=== PATIENT | male | born 1950 | race Caucasian/White ===

== ENCOUNTER → 2016-10-02 | Outpatient (CLI) | payer MEDICARE ==
[~2016-10-02] MED LIST: ALLP100T PO; ATEN100T88 PO; HYDR-3454 PO; TADA5TAB2 PO
== END ==
LOC: CARD 14:47
PROVIDERS: ATTEND Family Medicine
DX: R01.1 Cardiac murmur, unspecified (principal)

== ENCOUNTER → 2016-10-18 | Outpatient (CLI) | payer MEDICARE ==
[~2016-10-18] MED LIST changes: +RT-ALBUTEROL SULF 2.5 MG/3 ML PRE-MIX VIAL IH ONE
== END ==
LOC: RT 08:16
PROVIDERS: ATTEND Family Medicine
DX: I27.2 Other secondary pulmonary hypertension (principal)
CPT/HCPCS: 94060; 94640; 94726; 94729

== ENCOUNTER → 2017-04-03 | Day surgery (SDC) | payer MEDICARE ==
[~2017-04-03] VITALS: Ht 182.9 cm; Wt 90.7 kg
[~2017-04-03] MED LIST changes: +ETOMIDATE IV SOLN 20 MG/10 ML VIAL IV ONE; +HEParin 1000 UNIT/ML (10ML VIAL) FOR BOLUS ONE; +MIDAZOLAM 5 MG/5 ML (VERSED) VIAL IVP ONE; +ONDANSETRON 4 MG/2 ML (SDV) Z0FRAN ONE; +ROCURONIUM 50 MG/5 ML (ZEMURON) VIAL IV ONE; -RT-ALBUTEROL SULF 2.5 MG/3 ML PRE-MIX VIAL IH ONE; +SEVOFLURANE (ULTANE) 15 ML INHAL SOLN ONE; +SUCCINYLCHOLINE INJ 100 MG/5 ML SYR INJ ONE; +fentaNYL INJECTION 100 MCG/2 ML AMP IVP PRN; +morphine INJ 10 MG/ML 1ML (SYR OR VIAL) ONE; +proPOfol 200 MG/20 ML (DIPRIVAN) VIAL IV ONE
[2017-04-03 11:37] LABS: MEAN PLATELET VOLUME 10.1 FL (7.4-10.4); RED BLOOD COUNT 3.95 10^6/uL (4.35-5.85); RED CELL DISTRIBUTION WIDTH 11.4 % (10.0-14.5); WHITE BLOOD COUNT 19.7 10^3/uL (4.3-11.0)
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
[2017-04-03] MEDS: LACTATED RINGERS 1,000 ML IV PRN ×2 (11:45→12:13)
[2017-04-03 11:49] LABS: INR 1.1 (0.8-1.4); PROTHROMBIN TIME PATIENT 14.5 SEC (12.2-14.7)
[2017-04-03 11:58] LABS: ALANINE AMINOTRANSFERASE 22 U/L (0-55); ALBUMIN 3.6 GM/DL (3.2-4.5); ALCOHOL < 10 MG/DL (<10); ANION GAP 9 MMOL/L (5-14); ASPARTATE AMINO TRANSFERASE 28 U/L (5-34); BILIRUBIN,DIRECT 0.2 MG/DL (0.0-0.3); BILIRUBIN,INDIRECT 0.5 MG/DL; BILIRUBIN,TOTAL 0.7 MG/DL (0.1-1.0); BLOOD UREA NITROGEN 22 MG/DL (7-18); BUN/CREATININE RATIO 28; CALCIUM 8.4 MG/DL (8.5-10.1); CARBON DIOXIDE 25 MMOL/L (21-32); CHLORIDE 96 MMOL/L (98-107); CREATININE SERUM 0.78 MG/DL (0.60-1.30); GFR ESTIMATED > 60; GLUCOSE 143 MG/DL (70-105); MAGNESIUM 1.7 MG/DL (1.8-2.4); SODIUM 130 MMOL/L (135-145); TOTAL PROTEIN 5.8 GM/DL (6.4-8.2)
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
[2017-04-03 13:00] VITALS: BP 125/76
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
== END | disposition short-term general hospital (02) ==
LOC: EDUNIT# 10:58 → ER 10:59 → SDC 11:25
PROVIDERS: ATTEND Surgery
DX: S11.94XA Puncture wound with foreign body of unspecified part of neck, initial encounter (principal); I63.9 Cerebral infarction, unspecified; Y22.XXXA Handgun discharge, undetermined intent, initial encounter; Y92.017 Garden or yard in single-family (private) house as the place of occurrence of the external cause
CPT/HCPCS: 31500; 36415; 43760; 71010; 72040; 80048; 80076; 80320; 83605; 83735; 84100; 84484; 85027; 85379; 85384; 85610; 85730; 86850; 86900; 86901; 86920; 87070; 87205; 93041; 94002; 96374; 99291

== ENCOUNTER 2017-10-08 09:25 | Inpatient (IN) | payer MEDICARE ==
[~2017-10-08] VITALS: Ht 188 cm; Wt 102.7 kg
[~2017-10-08 09:25] MED LIST changes: -ETOMIDATE IV SOLN 20 MG/10 ML VIAL IV ONE; -HEParin 1000 UNIT/ML (10ML VIAL) FOR BOLUS ONE; -MIDAZOLAM 5 MG/5 ML (VERSED) VIAL IVP ONE; -ONDANSETRON 4 MG/2 ML (SDV) Z0FRAN ONE; -ROCURONIUM 50 MG/5 ML (ZEMURON) VIAL IV ONE; -SEVOFLURANE (ULTANE) 15 ML INHAL SOLN ONE; -SUCCINYLCHOLINE INJ 100 MG/5 ML SYR INJ ONE; -fentaNYL INJECTION 100 MCG/2 ML AMP IVP PRN; -morphine INJ 10 MG/ML 1ML (SYR OR VIAL) ONE; -proPOfol 200 MG/20 ML (DIPRIVAN) VIAL IV ONE
[2017-10-08 09:30] VITALS: BP 120/72
--- OUTSIDE RECORDS SUMMARY | 2017-10-08 09:58 | XMS REPORT | Encounter Summary ---
Author Author [facility] Organization [facility] Address Unknown Phone Unavailable Care Team Providers Care Department Store Salesperson Name Role Phone Sridevi Suggs MD PCP Reason for Referral * Consult, Test & Treat (Routine) Status Reason Specialty Diagnoses / Referred By Referred To Procedures Contact Contact Closed Specialty Diagnoses Carole Toribio, ORTHOPAEDIC Services Open displaced PLANIMETER OPERATOR-SCUBA DIVER SPECIALIST OF THE Required fracture of [address] [facility] [address] [place], [place] [address] [place] [address] unspecified [place], [place] Phone: fracture [phone] morphology, Phone: initial [phone] encounter (HCC) Encounter Details Date Type Department Care Team Description 09/13/2017 Orders Only [facility] Carole Toribio, PLANIMETER OPERATOR-SCUBA DIVER Open displaced fracture Physicians - Neurosurgery [address] of first cervical [address] [place] [address] vertebra, unspecified [address] [place] [address] fracture morphology, OFFICE BLDG [phone] initial encounter (HCC) [place], [place] (Primary Dx) [id number] Social History Tobacco Use Types Packs/Day Years Used Date Former Smoker Cigarettes 1.5 Smokeless Tobacco: Never Used Alcohol Use Drinks/Week oz/Week Comments Yes Sex Assigned at Date Recorded Not on file as of this encounter Functional Status Functional Status Response Date of Assessment Does the patient have a hearing impairment: No 04/04/2017 as of this encounter Plan of Treatment Name Priority Associated Diagnoses Order Schedule AMB REFERRAL TO PHYSICAL OR OCCUPATIONAL Routine Open displaced fracture Ordered: 09/13/2017 THERAPY of first cervical vertebra, unspecified fracture morphology, initial encounter (HCC) as of this encounter Visit Diagnoses Diagnosis Open displaced fracture of first cervical vertebra, unspecified fracture morphology, initial encounter (HCC) - Primary
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
--- OUTSIDE RECORDS SUMMARY | 2017-10-08 09:59 | XMS REPORT | Encounter Summary ---
Author Author [facility] Organization [facility] Address Unknown Phone Unavailable Care Team Providers Care Customer Experience Specialist Name Role Phone Sridevi Suggs MD PCP Encounter Details Date Type Department Care Team Description 09/03/2017 Ancillary Rad Outpatient, Radiologist Diagnosis unknown Orders [address] [place] [address] Social History Tobacco Use Types Packs/Day Years Used Date Former Smoker Cigarettes 1.5 Smokeless Tobacco: Never Used Alcohol Use Drinks/Week oz/Week Comments Yes Sex Assigned at Date Recorded Not on file as of this encounter Functional Status Functional Status Response Date of Assessment Does the patient have a hearing impairment: No 04/04/2017 as of this encounter Plan of Treatment Not on fileas of this encounter Results * CT C-SPINE EXTERNAL IMAGING (06/28/2017 12:15 AM) Specimen Performing Laboratory OTHER OUTSIDE LAB Narrative This order has been auto finalized and does not contain a result. * GENERAL RAD C-SPINE EXTERNAL IMAGING (06/28/2017) Specimen Performing Laboratory OTHER OUTSIDE LAB Narrative This order has been auto finalized and does not contain a result. in this encounter Visit Diagnoses Diagnosis Diagnosis unknown Other unknown and unspecified cause of morbidity or mortality
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
--- OUTSIDE RECORDS SUMMARY | 2017-10-08 09:59 | XMS REPORT | Encounter Summary ---
Author Author [facility] Organization [facility] Address Unknown Phone Unavailable Care Team Providers Care Ambulance Assistant Name Role Phone Sridevi Suggs MD PCP Encounter Details Date Type Department Care Team Description 09/03/2017 Hospital [facility] Antonella Rodriguez MD Encounter [facility] [address] [place] [address] [place] [address] [phone] Social History Tobacco Use Types Packs/Day Years [...] Treatment Not on fileas of this encounter Visit Diagnoses Not on filein this encounter
[2017-10-08] MEDS ORDERED: DICLOFENAC 1% GEL 100 GM (VOLTAREN) TUBE TOP PRN (10:15)
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
[2017-10-08] MEDS ORDERED: RT-ALBUTEROL/IPRATROPIUM 3 ML (DUONEB) VIAL INH PRN (11:00)
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
[2017-10-08] MEDS ORDERED: TAMS0.4C2 GT (14:32)
[2017-10-08] MEDS ORDERED: IPRA3AMP31 INH (14:32)
[2017-10-08] MEDS ORDERED: LEVE100S GT (14:32)
[2017-10-08] MEDS ORDERED: LACT1CAP39 PEG (14:32)
[2017-10-08] MEDS ORDERED: ALLO100T GT (14:32)
[2017-10-08] MEDS ORDERED: DICL100G18 TOP (14:32)
[2017-10-08] MEDS ORDERED: RANI150T46 PO (14:32)
[2017-10-08] MEDS ORDERED: NAPH15DR6 OS (14:32)
[2017-10-08] MEDS ORDERED: BISA10SU6 RC (14:32)
[2017-10-08] MEDS ORDERED: METO100T12 GT (14:32)
[2017-10-08] MEDS ORDERED: FINA5TAB6 GT (14:32)
[2017-10-08] MEDS ORDERED: ACET325T38 PO (14:32)
[2017-10-08] MEDS ORDERED: BETH25TA GT (14:32)
[2017-10-08] MEDS ORDERED: CITA20TA9 GT (14:32)
[2017-10-08] MEDS ORDERED: ACET325T38 GT (14:32)
[2017-10-08] MEDS ORDERED: SENN-145 GT (14:32)
[2017-10-08] MEDS ORDERED: MELA3TAB PO (14:32)
[2017-10-08] MEDS ORDERED: LACT-72 GT (14:32)
[2017-10-08] MEDS ORDERED: ASPI325T32 GT (14:32)
[2017-10-08] MEDS ORDERED: GUAI-557 GT (14:32)
[2017-10-08] MEDS ORDERED: ATOR40TA70 GT (14:41)
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
[2017-10-08 18:19] VITALS: BP 135/70
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
[2017-10-08] MEDS: ALLOPURINOL 100 MG (ZYLOPRIM) TAB GT SCH (20:46)
[2017-10-08] MEDS: meTOprolol TARTRATE 50 MG (LOPRESSOR) TAB GT SCH (20:46)
[2017-10-08] MEDS: BETHANECHOL 25 MG (URECHOLINE) TAB GT SCH (20:46)
[2017-10-08] MEDS: SENNA W/DOCUSATE (SENOKOT S) TABLET GT SCH (20:46)
[2017-10-08] MEDS: LEVETIRACETAM 500 MG/ 5 ML UDC ORAL SOLN (KEPPRA) GT SCH (20:47)
[2017-10-08] MEDS: ATORVASTATIN 40 MG (LIPITOR) TABLET GT SCH (20:47)
[2017-10-08] MEDS: FAMOTIDINE 20 MG (PEPCID) TABLET GT SCH (20:47)
[2017-10-09 05:45] VITALS: BP 144/75
[2017-10-09] MEDS: BETHANECHOL 25 MG (URECHOLINE) TAB GT SCH ×4 (06:15→20:56)
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
[2017-10-09] MEDS: ALLOPURINOL 100 MG (ZYLOPRIM) TAB GT SCH ×3 (09:06→20:56)
[2017-10-09] MEDS: ASPIRIN 325 MG (5 GR) TABLET GT SCH (09:06)
[2017-10-09] MEDS: FAMOTIDINE 20 MG (PEPCID) TABLET GT SCH ×2 (09:06→20:56)
[2017-10-09] MEDS: meTOprolol TARTRATE 50 MG (LOPRESSOR) TAB GT SCH ×2 (09:06→20:56)
[2017-10-09] MEDS: SENNA W/DOCUSATE (SENOKOT S) TABLET GT SCH ×2 (09:06→20:56)
[2017-10-09] MEDS: LEVETIRACETAM 500 MG/ 5 ML UDC ORAL SOLN (KEPPRA) GT SCH ×2 (09:12→20:56)
--- NOTE | 2017-10-09 09:23 | Occupational Ther Daily Note ---
OT Current Status-Daily Note Subjective Pt alert, lying in bed. Pt non-verbal, answers yes/no to questions. Mental Status/Objective Patient Orientation: Person, Non-Verbal/Aphasic Functional [place] Measure 0=Not Assessed/NA 4=Minimal Assistance 1=Total Assistance 5=Supervision or Setup 2=Maximal Assistance 6=Modified [place] 3=Moderate Assistance 7=Complete [place] Attachments: PEG Tube, Other-See Comments (trach) ADL-Treatment OT/PT co-treated due to pt's need for skilled intervention and decreased activity tolerance. Pt agrees to bed bath. Pt needed encouragement to use L UE to assist with bathing and dressing. Pt was able to wash alicia area, chest and face with encouragement. Pt with guidance is able to reach and grasp back of shirt to doff, assist to take off sleeves. Assist to thread R UE into sleeve , threaded L UE into sleeve by self then guided pt to grasp collar of shirt to push over head then assist to pull down in back, verbal cues for pt to pull down in front. Dependent for lower body dressing. Functional [place] Measure 0=Not Assessed/NA 4=Minimal Assistance 1=Total Assistance 5=Supervision or Setup 2=Maximal Assistance 6=Modified [place] 3=Moderate Assistance 7=Complete IndependenceIRFPAI Quality Coding Scale 6 Independent with activity with or without an assistive device 5 Patient requires set up or clean up by helper. Patient completes activity by themselves 4 Supervision or touching assist (CGA). [place] provide cues , steadying assist 3 The helper provides less than half the effort to complete the activity 2 The helper provides more than half the effort to complete the activity 1 Dependent. The helper does all the effort to complete an activity 7 Patient refused to complete or attempt activity 9 The patient did not perform the activity before the current illness or injury 88 Not attempted due to Medical conditions or safety concerns Bathing (FIM): 3 Bathing Location: L Upper Leg, R Upper Leg, Chest, Abdomen, Perineal Area Shower/Bathe Self (QC): 2 Upper Body (FIM): 2 Upper Body Dressing (QC): 2 Lower Body Dressing (FIM): 1 Lower Body Dressing (QC): 1 On/Off Footwear (QC): 1 Toileting (FIM): 1 Toileting Hygiene (QC): 1 Transfers (B, C, W/C) (FIM): 1 Other Treatment Pt transferred into and out of bed with brayan lift x2. Pt transported to therapy gym via w/c. Max A x2 SPT to mat table to work on sitting balance, core strength and PROM to L UE/LE (supine). PT worked on transfers, LE ROM and mobility, OT worked on ADLs and UE ROM. After therapy, pt lying in bed with call light/phone in reach. All needs met in room. CYBER OPS PLANNER took over care. OT Short Term Goals Short Term Goals Time Frame: Oct 22, 2017 Eating(FIM): 1 Grooming(FIM): 2 Bathing(FIM): 2 Upper Body Dressing(FIM): 2 Lower Body Dressing(FIM): 2 Toileting(FIM): 2 Transfers (B,C,W/C) (FIM): 2 Toilet/Commode Transfer(FIM): 2 Additional Short Term Goals: 1-Demonstrate ADL Tasks, 2-Verbalize Understanding , 3-ImproveStrength/[place] 1=Demonstrate adherence to instructed precautions during ADL tasks. 2=Patient will verbalize/demonstrate understanding of assistive devices/ modifications for ADL. 3=Patient will improve strength/tolerance for activity to enable patient to perform ADL's. OT Senior Care Goals Senior Care Goals Time Frame: Nov 05, 2017 Eating (FIM): 1 Groomin Oral Hygiene (QC): 3 Bathing(FIM): 3 Shower/Bathe Self (QC): 3 Upper Body Dressing(FIM): 3 Upper Body Dressing (QC): 3 Lower Body Dressing(FIM): 3 Lower Body Dressing (QC): 3 On/Off Footwear (QC): 3 Toileting(FIM): 3 Toileting Hygiene (QC): 3 Transfers (B,C,W/C) (FIM): 3 Toilet/Commode Transfer(FIM): 3 Toilet/Commode Transfer (QC): 3 Shower Transfer(FIM): 3 Comprehension(FIM): 2 Expression (FIM): 2 Social Interaction(FIM): 3 Problem Solving(FIM): 2 Memory(FIM): 2 Additional Goals: 1-Demonstrate ADL Tasks, 2-Verbalize Understanding, 3- ImproveStrength/[place] 1=Demonstrate adherence to instructed precautions during ADL tasks. 2=Patient will verbalize/demonstrate understanding of assistive devices/ modifications for ADL. 3=Patient will improve strength/tolerance for activity to enable patient to perform ADL's. OT Education/Plan Discharge Recommendations Plan/Recommendations: Continue POC Treatment Plan/Plan of Care Patient would benefit from OT for education, treatment and training to promote independence in ADL's, mobility, safety and/or upper extremity function for ADL' s. Plan of Care: ADL Retraining, Functional Mobility, UE Funct Exercise/Act Treatment Duration: Nov 05, 2017 Frequency: At least 5 of 7 days/Wk (IRF) Estimated Hrs Per Day: 1.5 hours per day Agreement: Yes Rehab Potential: Guarded Time/GCodes Start Time: 08:00 Stop Time: 09:00 Total Time Billed (hr/min): 60 Billed Treatment Time 1 visit-ADL 2 (30 min) FA 2 (30 min) co-treat 60 min NGUYEN FREEDMAN Oct 09, 2017 09:23
--- NOTE | 2017-10-09 09:35 | Speech Therapy Daily Note ---
Speech Daily Progress Note Subjective Date Seen by Provider: Oct 09, 2017 Time Seen by Provider: 09:00 The patient was laying, reclined in bed upon entrance. The patient greeted the clinician and was agreeable to participation in the dysphagia treatment session. Objective Dysphagia Exercises: Base of tongue retraction, pharyngeal contraction, and laryngeal elevation exercises were introduced, demonstrated and practiced on this date. The patient displayed fair accuracy with five repetitions of each exercise and maximum clinician cueing. Rest breaks were required for consistent participation. The patient does consistently display anterior spillage of secretions from the right labial side regardless of maximum cueing to elicit increased swallowing to clear the oral cavity. Assessment Assessment Current Status: Fair Progress Treatment Plan Continue Plan of Care Communication Comprehension: 2 Expression: 1 Social Cognition Social Interaction: 1 Problem Solvin Memory: 1 Speech Short Term Goals Short Term Goals Short Term Goals 1. The patient will display 75% accuracy with oropharyngeal swallowing exercises with moderate clinician verbal cueing. 2. The patient will tolerate 10/10 trials of honey-thick liquid without signs/ symptoms of aspiration or laryngeal penetration. 3. The patient will repeat functional phrases with 75% accuracy and mild clinician verbal cueing. 4. The patient will demonstrate adductor fold exercises with 75% accuracy and moderate clinician verbal cueing. Time Frame-STG: Three Weeks Speech Gericare Aide Teacher Goals Gericare Aide Teacher Goals 1. The patient will tolerate the least restrictive consistency (trials and diet ) without signs/symptoms of aspiration or laryngeal penetration. 2. The patient will display improved cognition linguistic function for increased function and safety. Time Frame: Four Weeks Comprehension: 2 Expression: 2 Social Interaction: 3 Problem Solvin Memory: 2 Speech-Plan Treatment Plan Speech Therapy Treatment Plan: Continue Plan of Care Continue skilled speech pathology to target oropharyngeal strengthening. Treatment Duration: Nov 02, 2017 Frequency: 4 times per week Estimated Hrs Per Day: .5 hour per day Rehab Potential: Guarded Safety Risks/Education Teaching Recipient: Patient Teaching Methods: Demonstration, Handout, Discussion Response to Teaching: Reinforcement Needed Education Topics Provided: Oropharyngeal Strengthening Exercises Time Speech Therapy Time In: 09:00 Speech Therapy Time Out: 09:30 Total Billed Time: 30 Billed Treatment Time DANDRE [facility] Oct 09, 2017 09:35
--- NOTE | 2017-10-09 10:56 | Physical Therapy Daily Note ---
PT Daily Note-Current Subjective Patient in bed pre tx, agrees to PT, no complaints of pain. Will be co- treating with OT for 60 min this morning. Appearance Patient BTB post tx with nurse felix nichols. Speech therapy in the room to work with him right after PT/OT. Mental Status Patient Orientation: Person, Non-Verbal/Aphasic Attachments: PEG Tube Transfers Functional [place] Measure 0=Not Assessed/NA 4=Minimal Assistance 1=Total Assistance 5=Supervision or Setup 2=Maximal Assistance 6=Modified [place] 3=Moderate Assistance 7=Complete IndependenceIRFPAI Quality Coding Scale 6 Independent with activity with or without an assistive device 5 Patient requires set up or clean up by helper. Patient completes activity by themselves 4 Supervision or touching assist (CGA). [place] provide cues , steadying assist 3 The helper provides less than half the effort to complete the activity 2 The helper provides more than half the effort to complete the activity 1 Dependent. The helper does all the effort to complete an activity 7 Patient refused to complete or attempt activity 9 The patient did not perform the activity before the current illness or injury 88 Not attempted due to Medical conditions or safety concerns Transfers (B, C, W/C) (FIM): 1 Scootin Rollin Supine to/from Sit: 1 Sit to/from Stand: 1 Bed to/from Chair: 1 Patient performed a brayan transfer twice and a stand pivot transfer twice. Dependent for the stand pivot transfer. Exercises LE range of motion and stretching. Patient has a flexion contracture in the right knee. Neuromuscular Seated balance training on therapy mat, LOS training forward, back, side to side. Treatments bed mobility and transfer training, balance training, patient was also bathed and dressed. Assessment Current Status: Poor Progress no change in mobility. Co-treated with OT for 60 min. PT worked on bed mobility, transfers, sitting balance, LE ROM, OT worked on dressing, bathing, UE positioning and ROM. PT Short Term Goals Short Term Goals Time Frame: Oct 22, 2017 Transfers (B,C,W/C) (FIM): 2 Wheelchair (FIM): 2 PT Front Office Help Goals Front Office Help Goals PT Front Office Help Goals Time Frame: Nov 05, 2017 Transfers (B,C,W/C) (FIM): 3 Sit to Lying (QC): 3 Lying-Sitting on Side/Bed(QC): 3 Sit to Stand (QC): 3 Rollin (attempts to participate in rolling) Roll Left to Right (QC): 3 Chair/Hsz-[id number] Xfer(QC): 3 Car Transfer (QC): 3 Does the Patient Walk: No and Walking Goal IS indicated Gait (FIM): 2 Gait distance (FIM): 1=up to 49 ft Distance: steps only Walk 10 feet (QC): 2 Walk 10ft-Uneven Surface(QC): 88 Walk 50ft with 2 Turns (QC): 88 Walk 150 ft (QC): 88 Gait Level of Assist: 2 Does the Pt use WC or Scooter?: Yes Wheelchair (FIM): 2 Wheelchair distance (FIM): 7=117-89 ft Distance: 50 ft Wheelchair Level of Assist: 4 Wheel 50 feet with 2 turns (QC: 4 Stairs (FIM): 1 1 Step (curb) (QC): 1 4 Steps (QC): 1 12 Steps (QC): 1 Picking up an Object (QC): 1 PT Plan Problem List Problem List: Activity Tolerance, Functional Strength, Safety, Balance, Transfer, Bed Mobility, ROM Treatment/Plan Treatment Plan: Continue Plan of Care Treatment Plan: Bed Mobility, Education, Functional Activity [place], Functional Strength, Group Therapy, Gait, Safety, Therapeutic Exercise, Transfers Treatment Duration: Nov 05, 2017 Frequency: At least 5 of 7 days/Wk (IRF) Estimated Hrs Per Day: 1.5 hours per day Patient and/or Family Agrees t: Yes Safety Risks/Education Patient Education: Transfer Techniques, Correct Positioning, Safety Issues Teaching Recipient: Patient Teaching Methods: Demonstration, Discussion Response to Teaching: Reinforcement Needed Time/GCodes Time In: 0800 Time Out: 0900 Total Billed Treatment Time: 60 Total Billed Treatment 1 visit NM 20' FA 40' ANA ALVAREZ PT Oct 09, 2017 10:56
--- NOTE | 2017-10-09 12:51 | Occupational Ther Daily Note ---
OT Current Status-Daily Note Subjective Pt alert, lying in bed watching TV. Pt only answering yes/no questions. Mental Status/Objective Patient Orientation: Person, Non-Verbal/Aphasic Functional [place] Measure 0=Not Assessed/NA 4=Minimal Assistance 1=Total Assistance 5=Supervision or Setup 2=Maximal Assistance 6=Modified [place] 3=Moderate Assistance 7=Complete [place] Attachments: PEG Tube, Other-See Comments (trach) ADL-Treatment Functional [place] Measure 0=Not Assessed/NA 4=Minimal Assistance 1=Total Assistance 5=Supervision or Setup 2=Maximal Assistance 6=Modified [place] 3=Moderate Assistance 7=Complete IndependenceIRFPAI Quality Coding Scale 6 Independent with activity with or without an assistive device 5 Patient requires set up or clean up by helper. Patient completes activity by themselves 4 Supervision or touching assist (CGA). [place] provide cues , steadying assist 3 The helper provides less than half the effort to complete the activity 2 The helper provides more than half the effort to complete the activity 1 Dependent. The helper does all the effort to complete an activity 7 Patient refused to complete or attempt activity 9 The patient did not perform the activity before the current illness or injury 88 Not attempted due to Medical conditions or safety concerns Other Treatment Taping to R shldr for subluxation. PROM to R shldr to increase ROM. When asked if ROM was painful, pt stated yes. 90 degrees extension, 90 degrees horizontal abd, minimal external shldr rotation. After therapy, pt lying in bed with call light/phone in reach. All needs met in room. OT Short Term Goals Short Term Goals Time Frame: Oct 22, 2017 Eating(FIM): 1 Grooming(FIM): 2 Bathing(FIM): 2 Upper Body Dressing(FIM): 2 Lower Body Dressing(FIM): 2 Toileting(FIM): 2 Transfers (B,C,W/C) (FIM): 2 Toilet/Commode Transfer(FIM): 2 Additional Short Term Goals: 1-Demonstrate ADL Tasks, 2-Verbalize Understanding , 3-ImproveStrength/Zunilda 1=Demonstrate adherence to instructed precautions during ADL tasks. 2=Patient will verbalize/demonstrate understanding of assistive devices/ modifications for ADL. 3=Patient will improve strength/tolerance for activity to enable patient to perform ADL's. OT Nursing Home Goals [employer] Shop Supervisor Goals Time Frame: Nov 05, 2017 Eating (FIM): 1 Groomin Oral Hygiene (QC): 3 Bathing(FIM): 3 Shower/Bathe Self (QC): 3 Upper Body Dressing(FIM): 3 Upper Body Dressing (QC): 3 Lower Body Dressing(FIM): 3 Lower Body Dressing (QC): 3 On/Off Footwear (QC): 3 Toileting(FIM): 3 Toileting Hygiene (QC): 3 Transfers (B,C,W/C) (FIM): 3 Toilet/Commode Transfer(FIM): 3 Toilet/Commode Transfer (QC): 3 Shower Transfer(FIM): 3 Comprehension(FIM): 2 Expression (FIM): 2 Social Interaction(FIM): 3 Problem Solving(FIM): 2 Memory(FIM): 2 Additional Goals: 1-Demonstrate ADL Tasks, 2-Verbalize Understanding, 3- ImproveStrength/Zunilda 1=Demonstrate adherence to instructed precautions during ADL tasks. 2=Patient will verbalize/demonstrate understanding of assistive devices/ modifications for ADL. 3=Patient will improve strength/tolerance for activity to enable patient to perform ADL's. OT Education/Plan Discharge Recommendations Plan/Recommendations: Continue POC Treatment Plan/Plan of Care Patient would benefit from OT for education, treatment and training to promote independence in ADL's, mobility, safety and/or upper extremity function for ADL' s. Plan of Care: ADL Retraining, Functional Mobility, UE Funct Exercise/Act Treatment Duration: Nov 05, 2017 Frequency: At least 5 of 7 days/Wk (IRF) Estimated Hrs Per Day: 1.5 hours per day Agreement: Yes Rehab Potential: Guarded Time/GCodes Start Time: 12:25 Stop Time: 12:45 Total Time Billed (hr/min): 20 Billed Treatment Time 1 visit-FA 1 (20 min) NGUYEN FREEDMAN Oct 09, 2017 12:51
--- NOTE | 2017-10-09 13:17 | Physical Therapy Daily Note ---
PT Daily Note-Current Subjective Patient in bed pre tx, no complaints of pain. Patient has had a BM and needs to be cleaned. Will assist nurse . Will perform bed mobility/rolling while nurse cleans patient. Appearance Patient in bed post tx with nurse call, felix, all needs met. Patient propped on right side with pillow. Mental Status Patient Orientation: Non-Verbal/Aphasic Transfers Functional [place] Measure 0=Not Assessed/NA 4=Minimal Assistance 1=Total Assistance 5=Supervision or Setup 2=Maximal Assistance 6=Modified [place] 3=Moderate Assistance 7=Complete IndependenceIRFPAI Quality Coding Scale 6 Independent with activity with or without an assistive device 5 Patient requires set up or clean up by helper. Patient completes activity by themselves 4 Supervision or touching assist (CGA). [place] provide cues , steadying assist 3 The helper provides less than half the effort to complete the activity 2 The helper provides more than half the effort to complete the activity 1 Dependent. The helper does all the effort to complete an activity 7 Patient refused to complete or attempt activity 9 The patient did not perform the activity before the current illness or injury 88 Not attempted due to Medical conditions or safety concerns Transfers (B, C, W/C) (FIM): 1 Scootin Rollin Patient can roll to the right side with max assist, to the left with dependence. Patient had to roll many times to get clean and get brief changed. Treatments bed mobility, rolling Assessment Current Status: Poor Progress no change in mobility PT Short Term Goals Short Term Goals Time Frame: Oct 22, 2017 Transfers (B,C,W/C) (FIM): 2 Wheelchair (FIM): 2 PT [employer] Mixer Goals [facility] Goals PT [facility] Goals Time Frame: Nov 05, 2017 Transfers (B,C,W/C) (FIM): 3 Sit to Lying (QC): 3 Lying-Sitting on Side/Bed(QC): 3 Sit to Stand (QC): 3 Rollin Roll Left to Right (QC): 3 Chair/[place]-Ycwfx Xfer(QC): 3 Car Transfer (QC): 3 Does the Patient Walk: No and Walking Goal IS indicated Gait (FIM): 2 Gait distance (FIM): 1=up to 49 ft Distance: steps only Walk 10 feet (QC): 2 Walk 10ft-Uneven Surface(QC): 88 Walk 50ft with 2 Turns (QC): 88 Walk 150 ft (QC): 88 Gait Level of Assist: 2 Does the Pt use WC or Scooter?: Yes Wheelchair (FIM): 2 Wheelchair distance (FIM): 2=338-91 ft Distance: 50 ft Wheelchair Level of Assist: 4 Wheel 50 feet with 2 turns (QC: 4 Stairs (FIM): 1 1 Step (curb) (QC): 1 4 Steps (QC): 1 12 Steps (QC): 1 Picking up an Object (QC): 1 PT Plan Problem List Problem List: Activity Tolerance, Functional Strength, Safety, Balance, Gait, Transfer, Bed Mobility, ROM Treatment/Plan Treatment Plan: Continue Plan of Care Treatment Plan: Bed Mobility, Education, Functional Activity Zunilda, Functional Strength, Group Therapy, Gait, Safety, Therapeutic Exercise, Transfers Treatment Duration: Nov 05, 2017 Frequency: At least 5 of 7 days/Wk (IRF) Estimated Hrs Per Day: 1.5 hours per day Patient and/or Family Agrees t: Yes Safety Risks/Education Patient Education: Correct Positioning, Safety Issues Teaching Recipient: Patient Teaching Methods: Demonstration, Discussion Response to Teaching: Reinforcement Needed Time/GCodes Time In: 1300 Time Out: 1315 Total Billed Treatment Time: 15 Total Billed Treatment 1 visit FA ANA CONNELL PT Oct 09, 2017 13:17
[2017-10-09 16:45] VITALS: BP 148/74
[2017-10-09] MEDS: ATORVASTATIN 40 MG (LIPITOR) TABLET GT SCH (20:56)
[2017-10-10 05:05] VITALS: BP 163/79
[2017-10-10] MEDS: BETHANECHOL 25 MG (URECHOLINE) TAB GT SCH ×4 (06:45→21:17)
[2017-10-10] MEDS: ALLOPURINOL 100 MG (ZYLOPRIM) TAB GT SCH ×3 (08:37→21:17)
[2017-10-10] MEDS: LEVETIRACETAM 500 MG/ 5 ML UDC ORAL SOLN (KEPPRA) GT SCH ×2 (08:37→21:17)
[2017-10-10] MEDS: FAMOTIDINE 20 MG (PEPCID) TABLET GT SCH ×2 (08:37→21:17)
[2017-10-10] MEDS: SENNA W/DOCUSATE (SENOKOT S) TABLET GT SCH ×2 (08:37→21:17)
[2017-10-10] MEDS: ASPIRIN 325 MG (5 GR) TABLET GT SCH (08:37)
[2017-10-10] MEDS: meTOprolol TARTRATE 50 MG (LOPRESSOR) TAB GT SCH ×2 (08:37→21:17)
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
--- NOTE | 2017-10-10 09:27 | Occupational Ther Daily Note ---
OT Current Status-Daily Note Subjective Pt sleeping in bed, woke to name and gentle shake. Pt mouths one word responses with minimal vocalization. No c/o pain. Pt was incontinent of bowel , acknowledged that he was dirty, but did not notify nrsg. Pt was educated about using call light to alert nrsg. Mental Status/Objective Patient Orientation: Person, Non-Verbal/Aphasic Functional [place] Measure 0=Not Assessed/NA 4=Minimal Assistance 1=Total Assistance 5=Supervision or Setup 2=Maximal Assistance 6=Modified [place] 3=Moderate Assistance 7=Complete [place] ADL-Treatment OT/PT co-treated due to pt's need for skilled intervention and decreased activity tolerance. Pt assists initiating roll toward R side in bed, dependent for rolling L. Pt able to lift L LE to don lower body clothing. Dependent for R LE and hiking pants in bed. Pt unable to stand to bear wt to complete lower body dressing. Functional [place] Measure 0=Not Assessed/NA 4=Minimal Assistance 1=Total Assistance 5=Supervision or Setup 2=Maximal Assistance 6=Modified [place] 3=Moderate Assistance 7=Complete IndependenceIRFPAI Quality Coding Scale 6 Independent with activity with or without an assistive device 5 Patient requires set up or clean up by helper. Patient completes activity by themselves 4 Supervision or touching assist (CGA). [place] provide cues , steadying assist 3 The helper provides less than half the effort to complete the activity 2 The helper provides more than half the effort to complete the activity 1 Dependent. The helper does all the effort to complete an activity 7 Patient refused to complete or attempt activity 9 The patient did not perform the activity before the current illness or injury 88 Not attempted due to Medical conditions or safety concerns Grooming (FIM): 1 Oral Hygiene (QC): 1 Lower Body Dressing (FIM): 1 Lower Body Dressing (QC): 1 On/Off Footwear (QC): 1 Toileting (FIM): 1 Toileting Hygiene (QC): 1 Other Treatment PT worked on transfers, standing and mobility. OT worked on dressing, toileting , LUE PROM and UE wt bearing. Pt initially refused to work on standing in standing frame or parallel bars. After encouragement pt chose to use standing frame to stand. Pt resisted wt shifting in standing frame and physical cues needed to shift wt to L side. PROM in sitting to L UE, tightness noted at 90 degrees extensions and 45 degrees horizontal abd. After therapy, pt sitting in recliner with call light/phone in reach. All needs met in room. OT Short Term Goals Short Term Goals Time Frame: Oct 22, 2017 Eating(FIM): 1 Grooming(FIM): 2 Bathing(FIM): 2 Upper Body Dressing(FIM): 2 Lower Body Dressing(FIM): 2 Toileting(FIM): 2 Transfers (B,C,W/C) (FIM): 2 Toilet/Commode Transfer(FIM): 2 Additional Short Term Goals: 1-Demonstrate ADL Tasks, 2-Verbalize Understanding , 3-ImproveStrength/Zunilda 1=Demonstrate adherence to instructed precautions during ADL tasks. 2=Patient will verbalize/demonstrate understanding of assistive devices/ modifications for ADL. 3=Patient will improve strength/tolerance for activity to enable patient to perform ADL's. OT [facility] Goals [facility] Goals Time Frame: Nov 05, 2017 Eating (FIM): 1 Groomin Oral Hygiene (QC): 3 Bathing(FIM): 3 Shower/Bathe Self (QC): 3 Upper Body Dressing(FIM): 3 Upper Body Dressing (QC): 3 Lower Body Dressing(FIM): 3 Lower Body Dressing (QC): 3 On/Off Footwear (QC): 3 Toileting(FIM): 3 Toileting Hygiene (QC): 3 Transfers (B,C,W/C) (FIM): 3 Toilet/Commode Transfer(FIM): 3 Toilet/Commode Transfer (QC): 3 Shower Transfer(FIM): 3 Comprehension(FIM): 2 Expression (FIM): 2 Social Interaction(FIM): 3 Problem Solving(FIM): 2 Memory(FIM): 2 Additional Goals: 1-Demonstrate ADL Tasks, 2-Verbalize Understanding, 3- ImproveStrength/Zunilda 1=Demonstrate adherence to instructed precautions during ADL tasks. 2=Patient will verbalize/demonstrate understanding of assistive devices/ modifications for ADL. 3=Patient will improve strength/tolerance for activity to enable patient to perform ADL's. OT Education/Plan Discharge Recommendations Plan/Recommendations: Continue POC Treatment Plan/Plan of Care Patient would benefit from OT for education, treatment and training to promote independence in ADL's, mobility, safety and/or upper extremity function for ADL' s. Plan of Care: ADL Retraining, Functional Mobility, UE Funct Exercise/Act Treatment Duration: Nov 05, 2017 Frequency: At least 5 of 7 days/Wk (IRF) Estimated Hrs Per Day: 1.5 hours per day Agreement: Yes Rehab Potential: Guarded Time/GCodes Start Time: 08:00 Stop Time: 09:15 Total Time Billed (hr/min): 75 Billed Treatment Time 1 visit-ADL 2 (30 min) FA 3 (45 min) Co-treat for 75 min NGUYEN FREEDMAN Oct 10, 2017 09:26
--- NOTE | 2017-10-10 09:52 | Speech Therapy Daily Note ---
Speech Daily Progress Note Subjective Date Seen by Provider: Oct 10, 2017 Time Seen by Provider: 09:15 The patient was reclined in his chair upon entrance. The patient made eye contact with the clinician, however, did not verbally greet her. The patient hesitantly agreed to dysphagia therapy on this date. To note, the patient appears extremely poorly motivated at this time. The clinician asked the patient, "Do you want to do therapy?" The patient stated, "No." The clinician asked if the patient wanted to be transferred to the rehabilitation facility; the patient stated, "no." The clinician asked if the patient wanted to improve his overall strength to reduce dependence on others; the patient stated, "no." The patient demonstrates high reliability with yes and no responses, therefore, the validity of his answers is not questioned. Objective Dysphagia Exercises: Base of tongue retraction, pharyngeal contraction, and laryngeal elevation exercises were continued on this date. The patient displayed fair accuracy with five repetitions of each exercise and maximum clinician cueing. Rest breaks were required for consistent participation. The patient does consistently display anterior spillage of secretions from the right labial side regardless of maximum cueing to elicit increased swallowing to clear the oral cavity. PO Trials: Honey-thick liquid teaspoon trials were attempted. No overt signs/ symptoms of aspiration were demonstrated, however, a significantly wet vocal quality was present. The patient refused additional trials following the second teaspoon. Assessment Assessment Current Status: Poor Progress Treatment Plan Continue Plan of Care Communication Comprehension: 2 Expression: 1 Social Cognition Social Interaction: 1 Problem Solvin Memory: 1 Speech Short Term Goals Short Term Goals Short Term Goals 1. The patient will display 75% accuracy with oropharyngeal swallowing exercises with moderate clinician verbal cueing. 2. The patient will tolerate 10/10 trials of honey-thick liquid without signs/ symptoms of aspiration or laryngeal penetration. 3. The patient will repeat functional phrases with 75% accuracy and mild clinician verbal cueing. 4. The patient will demonstrate adductor fold exercises with 75% accuracy and moderate clinician verbal cueing. Time Frame-STG: Three Weeks Speech Detention Goals Detention Goals 1. The patient will tolerate the least restrictive consistency (trials and diet ) without signs/symptoms of aspiration or laryngeal penetration. 2. The patient will display improved cognition linguistic function for increased function and safety. Time Frame: Four Weeks Comprehension: 2 Expression: 2 Social Interaction: 3 Problem Solvin Memory: 2 Speech-Plan Treatment Plan Speech Therapy Treatment Plan: Continue Plan of Care Continue skilled speech pathology to target improved swallowing function. Treatment Duration: Nov 02, 2017 Frequency: 4 times per week Estimated Hrs Per Day: .5 hour per day Rehab Potential: Guarded Safety Risks/Education Teaching Recipient: Patient Teaching Methods: Demonstration, Handout, Discussion Response to Teaching: Reinforcement Needed Education Topics Provided: Dysphagia Exercises Discharge Recommendations Correction (TCU/NH) Time Speech Therapy Time In: 09:15 Speech Therapy Time Out: 09:45 Total Billed Time: 30 Billed Treatment Time 1ROXANN ELIZABETH ST Oct 10, 2017 09:52
--- NOTE | 2017-10-10 10:07 | Physical Therapy Daily Note ---
PT Daily Note-Current Subjective Patient in bed pre tx, agrees to PT, no complaints of pain at rest. Will be co- treating with OT this morning. Appearance Patient in recliner post tx with legs up, has nurse call, felix, all needs met. Mental Status Patient Orientation: Non-Verbal/Aphasic Attachments: PEG Tube Transfers Functional [place] Measure 0=Not Assessed/NA 4=Minimal Assistance 1=Total Assistance 5=Supervision or Setup 2=Maximal Assistance 6=Modified [place] 3=Moderate Assistance 7=Complete IndependenceIRFPAI Quality Coding Scale 6 Independent with activity with or without an assistive device 5 Patient requires set up or clean up by helper. Patient completes activity by themselves 4 Supervision or touching assist (CGA). [place] provide cues , steadying assist 3 The helper provides less than half the effort to complete the activity 2 The helper provides more than half the effort to complete the activity 1 Dependent. The helper does all the effort to complete an activity 7 Patient refused to complete or attempt activity 9 The patient did not perform the activity before the current illness or injury 88 Not attempted due to Medical conditions or safety concerns Transfers (B, C, W/C) (FIM): 1 Scootin Rollin Supine to/from Sit: 1 Sit to/from Stand: 1 Bed to/from Chair: 1 Patient can roll to the right side with max assist, all other mobility is dependent. Patient was transferred to wheelchair with brayan after cleaning from a BM and getting dressed. Patient had to roll several times back and forth to get cleaned and changed and get sling under him. He then was taken to the therapy gym and put in the standing frame. He stood for about 10 min before sitting down again. Patient was then taken back to his room in the wheelchair and transferred via brayan to recliner. Patient has poor motivation and was given the choice of standing in the parallel bars or the standing frame. He refused both and needed max encouragement to participate and eventually chose to get into the standing frame. Patient did not seem to actively participate in transfers or in the standing frame, even with cues and encouragement. Treatments bed mobility, transfers, standing frame, dressing, cleaning BM in bed Assessment Current Status: Poor Progress no change in mobility PT Short Term Goals Short Term Goals Time Frame: Oct 22, 2017 Transfers (B,C,W/C) (FIM): 2 Wheelchair (FIM): 2 PT [employer] Goals [facility] Goals PT [facility] Goals Time Frame: Nov 05, 2017 Transfers (B,C,W/C) (FIM): 3 Sit to Lying (QC): 3 Lying-Sitting on Side/Bed(QC): 3 Sit to Stand (QC): 3 Rollin Roll Left to Right (QC): 3 Chair/Gbc-jm-Sqhwi Xfer(QC): 3 Car Transfer (QC): 3 Does the Patient Walk: No and Walking Goal IS indicated Gait (FIM): 2 Gait distance (FIM): 1=up to 49 ft Distance: steps only Walk 10 feet (QC): 2 Walk 10ft-Uneven Surface(QC): 88 Walk 50ft with 2 Turns (QC): 88 Walk 150 ft (QC): 88 Gait Level of Assist: 2 Does the Pt use WC or Scooter?: Yes Wheelchair (FIM): 2 Wheelchair distance (FIM): 5=603-48 ft Distance: 50 ft Wheelchair Level of Assist: 4 Wheel 50 feet with 2 turns (QC: 4 Stairs (FIM): 1 1 Step (curb) (QC): 1 4 Steps (QC): 1 12 Steps (QC): 1 Picking up an Object (QC): 1 PT Plan Problem List Problem List: Activity Tolerance, Functional Strength, Safety, Balance, Gait, Transfer, Bed Mobility, ROM Treatment/Plan Treatment Plan: Continue Plan of Care Treatment Plan: Bed Mobility, Education, Functional Activity Zunilda, Functional Strength, Group Therapy, Gait, Safety, Therapeutic Exercise, Transfers Treatment Duration: Nov 05, 2017 Frequency: At least 5 of 7 days/Wk (IRF) Estimated Hrs Per Day: 1.5 hours per day Patient and/or Family Agrees t: Yes Safety Risks/Education Patient Education: Transfer Techniques, Correct Positioning, Safety Issues Teaching Recipient: Patient Teaching Methods: Demonstration, Discussion Response to Teaching: Reinforcement Needed Time/GCodes Time In: 0800 Time Out: 0915 Total Billed Treatment Time: 75 Total Billed Treatment 1 visit FA 75' Co-treated with OT for the whole 75 min. PT worked on rolling, bed mobility, transfers, trunk positioning and LE positioning in standing frame. OT worked on dressing, cleaning BM, transfers, UE positioning in standing frame. ANA ALVAREZ PT Oct 10, 2017 10:07
[2017-10-10 10:16] VITALS: BP 157/89
[2017-10-10 18:00] VITALS: BP 163/83
[2017-10-10] MEDS: ATORVASTATIN 40 MG (LIPITOR) TABLET GT SCH (21:17)
[2017-10-11 06:00] VITALS: BP 132/76
[2017-10-11] MEDS: BETHANECHOL 25 MG (URECHOLINE) TAB GT SCH ×4 (06:07→21:40)
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
--- NOTE | 2017-10-11 08:55 | Physical Therapy Daily Note ---
PT Daily Note-Current Subjective Patient in bed pre tx, agrees to PT, has no complaints of pain. Will be co- treating with OT for dressing and shower. Appearance Patient in shower chair post tx, finishing up with OT. Mental Status Patient Orientation: Unable to Assess, Non-Verbal/Aphasic Attachments: PEG Tube Transfers Functional [place] Measure 0=Not Assessed/NA 4=Minimal Assistance 1=Total Assistance 5=Supervision or Setup 2=Maximal Assistance 6=Modified [place] 3=Moderate Assistance 7=Complete IndependenceIRFPAI Quality Coding Scale 6 Independent with activity with or without an assistive device 5 Patient requires set up or clean up by helper. Patient completes activity by themselves 4 Supervision or touching assist (CGA). [place] provide cues , steadying assist 3 The helper provides less than half the effort to complete the activity 2 The helper provides more than half the effort to complete the activity 1 Dependent. The helper does all the effort to complete an activity 7 Patient refused to complete or attempt activity 9 The patient did not perform the activity before the current illness or injury 88 Not attempted due to Medical conditions or safety concerns Transfers (B, C, W/C) (FIM): 1 Scootin Rollin Bed to/from Chair: 1 Landen lift for transfers, patient can roll to the right side with max assist. Treatments Patient was undressed in bed and had to roll several times for undressing and to get landen sling underneath him. He was transferred to shower chair via landen and taken to shower room. He showered and then was taken back to his room where OT will continue finishing up with patient for some ADL's. PT worked on rolling, dressing, transfers, sitting balance and positioning during shower. OT worked on dressing transfers, and bathing. Assessment Current Status: Poor Progress no change in mobility PT Short Term Goals Short Term Goals Time Frame: Oct 22, 2017 Transfers (B,C,W/C) (FIM): 2 Wheelchair (FIM): 2 PT Senior Living Goals Product Safety Lead Goals PT Product Safety Lead Goals Time Frame: Nov 05, 2017 Transfers (B,C,W/C) (FIM): 3 Sit to Lying (QC): 3 Lying-Sitting on Side/Bed(QC): 3 Sit to Stand (QC): 3 Rollin Roll Left to Right (QC): 3 Chair/[id number]-nx-[id number] Xfer(QC): 3 Car Transfer (QC): 3 Does the Patient Walk: No and Walking Goal IS indicated Gait (FIM): 2 Gait distance (FIM): 1=up to 49 ft Distance: steps only Walk 10 feet (QC): 2 Walk 10ft-Uneven Surface(QC): 88 Walk 50ft with 2 Turns (QC): 88 Walk 150 ft (QC): 88 Gait Level of Assist: 2 Does the Pt use WC or Scooter?: Yes Wheelchair (FIM): 2 Wheelchair distance (FIM): 9=431-38 ft Distance: 50 ft Wheelchair Level of Assist: 4 Wheel 50 feet with 2 turns (QC: 4 Stairs (FIM): 1 1 Step (curb) (QC): 1 4 Steps (QC): 1 12 Steps (QC): 1 Picking up an Object (QC): 1 PT Plan Problem List Problem List: Activity Tolerance, Functional Strength, Safety, Balance, Gait, Transfer, Bed Mobility, ROM Treatment/Plan Treatment Plan: Continue Plan of Care Treatment Plan: Bed Mobility, Education, Functional Activity Zunilda, Functional Strength, Group Therapy, Gait, Safety, Therapeutic Exercise, Transfers Treatment Duration: Nov 05, 2017 Frequency: At least 5 of 7 days/Wk (IRF) Estimated Hrs Per Day: 1.5 hours per day Patient and/or Family Agrees t: Yes Safety Risks/Education Patient Education: Transfer Techniques, Correct Positioning, Safety Issues Teaching Recipient: Patient Teaching Methods: Demonstration, Discussion Response to Teaching: Reinforcement Needed Time/GCodes Time In: 0800 Time Out: 0900 Total Billed Treatment Time: 60 Total Billed Treatment 1 visit FA 60' co-treated with OT for the whole 60 min ANA ALVAREZ PT Oct 11, 2017 08:55
[2017-10-11] MEDS: ASPIRIN 325 MG (5 GR) TABLET GT SCH (09:06)
[2017-10-11] MEDS: ALLOPURINOL 100 MG (ZYLOPRIM) TAB GT SCH ×3 (09:06→21:40)
[2017-10-11] MEDS: meTOprolol TARTRATE 50 MG (LOPRESSOR) TAB GT SCH ×2 (09:06→21:40)
[2017-10-11] MEDS: SENNA W/DOCUSATE (SENOKOT S) TABLET GT SCH ×2 (09:06→21:40)
[2017-10-11] MEDS: LEVETIRACETAM 500 MG/ 5 ML UDC ORAL SOLN (KEPPRA) GT SCH ×2 (09:06→21:39)
[2017-10-11] MEDS: FAMOTIDINE 20 MG (PEPCID) TABLET GT SCH ×2 (09:06→21:40)
--- NOTE | 2017-10-11 09:17 | Occupational Ther Daily Note ---
OT Current Status-Daily Note Subjective Pt alert, lying in bed. Pt communicates with mouthing and slight vocalization, one word responses. Pt agrees to therapy. Mental Status/Objective Patient Orientation: Person, Place, Non-Verbal/Aphasic, Time, Situation Functional [place] Measure 0=Not Assessed/NA 4=Minimal Assistance 1=Total Assistance 5=Supervision or Setup 2=Maximal Assistance 6=Modified [place] 3=Moderate Assistance 7=Complete [place] Attachments: PEG Tube ADL-Treatment OT/PT co-treated due to pt's need for skilled intervention and decreased activity tolerance. Pt assists initiating roll toward R side in bed, dependent for rolling L. Landen lift for transfer to shower chair. After verbal cues to assist with own bathing, pt able to bathe upper body, alicia area and LE's using long handle sponge. Pt was able to rinse with hand held shower and used towel to dry after cues for upper body and alicia area. Pt completed oral care after set up and cue to complete. Pt brushed hair after set up. Dependent with care after bowel movement. Pt assisted after verbal cues to doff and don shirt, mod A. After therapy, pt lying in bed with call light/phone in reach. All needs met in room. Functional [place] Measure 0=Not Assessed/NA 4=Minimal Assistance 1=Total Assistance 5=Supervision or Setup 2=Maximal Assistance 6=Modified [place] 3=Moderate Assistance 7=Complete IndependenceIRFPAI Quality Coding Scale 6 Independent with activity with or without an assistive device 5 Patient requires set up or clean up by helper. Patient completes activity by themselves 4 Supervision or touching assist (CGA). [place] provide cues , steadying assist 3 The helper provides less than half the effort to complete the activity 2 The helper provides more than half the effort to complete the activity 1 Dependent. The helper does all the effort to complete an activity 7 Patient refused to complete or attempt activity 9 The patient did not perform the activity before the current illness or injury 88 Not attempted due to Medical conditions or safety concerns Grooming (FIM): 4 Oral Hygiene (QC): 4 Bathing Location: L Arm, L Upper Leg, R Upper Leg, L Lower Leg (including foot) , R Lower Leg (including foot), Chest, Abdomen, Perineal Area Shower/Bathe Self (QC): 3 Upper Body (FIM): 3 Upper Body Dressing (QC): 3 Lower Body Dressing (FIM): 1 Lower Body Dressing (QC): 1 On/Off Footwear (QC): 1 Toileting (FIM): 1 Toileting Hygiene (QC): 1 Transfers (B, C, W/C) (FIM): 1 Toilet/Commode Transfer (FIM): 1 Toilet Transfer (QC): 1 Shower Transfer(FIM): 1 OT Short Term Goals Short Term Goals Time Frame: Oct 22, 2017 Eating(FIM): 1 Grooming(FIM): 2 Bathing(FIM): 2 Upper Body Dressing(FIM): 2 Lower Body Dressing(FIM): 2 Toileting(FIM): 2 Transfers (B,C,W/C) (FIM): 2 Toilet/Commode Transfer(FIM): 2 Additional Short Term Goals: 1-Demonstrate ADL Tasks, 2-Verbalize Understanding , 3-ImproveStrength/Zunilda 1=Demonstrate adherence to instructed precautions during ADL tasks. 2=Patient will verbalize/demonstrate understanding of assistive devices/ modifications for ADL. 3=Patient will improve strength/tolerance for activity to enable patient to perform ADL's. OT Pest Control Service Sales Agent Goals Pest Control Service Sales Agent Goals Time Frame: Nov 05, 2017 Eating (FIM): 1 Groomin Oral Hygiene (QC): 3 Bathing(FIM): 3 Shower/Bathe Self (QC): 3 Upper Body Dressing(FIM): 3 Upper Body Dressing (QC): 3 Lower Body Dressing(FIM): 3 Lower Body Dressing (QC): 3 On/Off Footwear (QC): 3 Toileting(FIM): 3 Toileting Hygiene (QC): 3 Transfers (B,C,W/C) (FIM): 3 Toilet/Commode Transfer(FIM): 3 Toilet/Commode Transfer (QC): 3 Shower Transfer(FIM): 3 Comprehension(FIM): 2 Expression (FIM): 2 Social Interaction(FIM): 3 Problem Solving(FIM): 2 Memory(FIM): 2 Additional Goals: 1-Demonstrate ADL Tasks, 2-Verbalize Understanding, 3- ImproveStrength/Zunilda 1=Demonstrate adherence to instructed precautions during ADL tasks. 2=Patient will verbalize/demonstrate understanding of assistive devices/ modifications for ADL. 3=Patient will improve strength/tolerance for activity to enable patient to perform ADL's. OT Education/Plan Discharge Recommendations Plan/Recommendations: Continue POC Treatment Plan/Plan of Care Patient would benefit from OT for education, treatment and training to promote independence in ADL's, mobility, safety and/or upper extremity function for ADL' s. Plan of Care: ADL Retraining, Functional Mobility, UE Funct Exercise/Act Treatment Duration: Nov 05, 2017 Frequency: At least 5 of 7 days/Wk (IRF) Estimated Hrs Per Day: 1.5 hours per day Agreement: Yes Rehab Potential: Guarded Time/GCodes Start Time: 08:00 Stop Time: 09:15 Total Time Billed (hr/min): 75 Billed Treatment Time 1 visit-ADL 5 (75 min) NGUYEN FREEDMAN Oct 11, 2017 09:17
--- NOTE | 2017-10-11 09:50 | Speech Therapy Daily Note ---
Speech Daily Progress Note Subjective Date Seen by Provider: Oct 11, 2017 Time Seen by Provider: 09:15 The patient was laying in bed, sleeping upon entrance. The patient's was present at bedside. The patient intermittently opened eyes to the clinician's verbal prompting. Continued verbal encouragement was required for participation and alertness. Objective Dysphagia Exercises: Base of tongue retraction, pharyngeal contraction, and laryngeal elevation exercises were continued on this date. The patient displayed fair accuracy with ten repetitions of each exercise and maximum clinician cueing. Rest breaks were required for consistent participation. PO Trials: PO trials were not attempted on this date as the patient did not appear to be handling secretions, coughing frequently throughout the session. Assessment Assessment Current Status: Fair Progress Treatment Plan Continue Plan of Care Communication Comprehension: 2 Expression: 1 Social Cognition Social Interaction: 1 Problem Solvin Memory: 1 Speech Short Term Goals Short Term Goals Short Term Goals 1. The patient will display 75% accuracy with oropharyngeal swallowing exercises with moderate clinician verbal cueing. 2. The patient will tolerate 10/10 trials of honey-thick liquid without signs/ symptoms of aspiration or laryngeal penetration. 3. The patient will repeat functional phrases with 75% accuracy and mild clinician verbal cueing. 4. The patient will demonstrate adductor fold exercises with 75% accuracy and moderate clinician verbal cueing. Time Frame-STG: Three Weeks Speech Penitentiary Goals Penitentiary Goals 1. The patient will tolerate the least restrictive consistency (trials and diet ) without signs/symptoms of aspiration or laryngeal penetration. 2. The patient will display improved cognition linguistic function for increased function and safety. Time Frame: Four Weeks Comprehension: 2 Expression: 2 Social Interaction: 3 Problem Solvin Memory: 2 Speech-Plan Treatment Plan Speech Therapy Treatment Plan: Continue Plan of Care Continue skilled speech pathology to target improved swallowing function. Treatment Duration: Nov 02, 2017 Frequency: 4 times per week Estimated Hrs Per Day: .5 hour per day Rehab Potential: Guarded Safety Risks/Education Teaching Recipient: Patient Teaching Methods: Demonstration, Handout, Discussion Response to Teaching: Reinforcement Needed Education Topics Provided: Dysphagia Exercises Time Speech Therapy Time In: 09:15 Speech Therapy Time Out: 09:45 Total Billed Time: 30 Billed Treatment Time [facility] Oct 11, 2017 09:50
--- NOTE | 2017-10-11 10:39 | Speech Therapy Progress Note ---
Therapy Progress Note At the request of the patient's , Joi, the clinician contacted Jocelyn Faustino at [facility] regarding the [facility] AAC device the patient has in his possession. Per Joi, she is unsure if Giancarlo owns the device or if she is paying a monthly loan amount for the device. This clinician does not plan to use this device throughout his stay at [facility], therefore, Joi would like information in regards to returning the device. This clinician called the above contact at [phone] on this date requesting additional information. Jocelyn was not reached and a return call was requested. THERESA RIVERO Oct 11, 2017 10:39
--- NOTE | 2017-10-11 13:31 | Physical Therapy Daily Note ---
PT Daily Note-Current Subjective Patient in bed pre tx, agrees to PT, no complaints of pain at rest. Patient needs to be cleaned and have brief changed. Appearance Patient in bed post tx with nurse call, family in the room, pillow supports under left side and heel protectors on. Mental Status Patient Orientation: Unable to Assess, Non-Verbal/Aphasic Attachments: PEG Tube Transfers Functional [place] Measure 0=Not Assessed/NA 4=Minimal Assistance 1=Total Assistance 5=Supervision or Setup 2=Maximal Assistance 6=Modified [place] 3=Moderate Assistance 7=Complete IndependenceIRFPAI Quality Coding Scale 6 Independent with activity with or without an assistive device 5 Patient requires set up or clean up by helper. Patient completes activity by themselves 4 Supervision or touching assist (CGA). [place] provide cues , steadying assist 3 The helper provides less than half the effort to complete the activity 2 The helper provides more than half the effort to complete the activity 1 Dependent. The helper does all the effort to complete an activity 7 Patient refused to complete or attempt activity 9 The patient did not perform the activity before the current illness or injury 88 Not attempted due to Medical conditions or safety concerns Exercises BLE ROM in all planes. Patient has a left knee flexion contracture and he resists left side knee extension ROM. Treatments BLE PROM/stretching, patient was changed and cleaned Assessment Current Status: Poor Progress no change in mobility PT Short Term Goals Short Term Goals Time Frame: Oct 22, 2017 Transfers (B,C,W/C) (FIM): 2 Wheelchair (FIM): 2 PT Assistant Distribution Manager Goals Assistant Distribution Manager Goals PT Assistant Distribution Manager Goals Time Frame: Nov 05, 2017 Transfers (B,C,W/C) (FIM): 3 Sit to Lying (QC): 3 Lying-Sitting on Side/Bed(QC): 3 Sit to Stand (QC): 3 Rollin Roll Left to Right (QC): 3 Chair/Rxc-ox-Bazih Xfer(QC): 3 Car Transfer (QC): 3 Does the Patient Walk: No and Walking Goal IS indicated Gait (FIM): 2 Gait distance (FIM): 1=up to 49 ft Distance: steps only Walk 10 feet (QC): 2 Walk 10ft-Uneven Surface(QC): 88 Walk 50ft with 2 Turns (QC): 88 Walk 150 ft (QC): 88 Gait Level of Assist: 2 Does the Pt use WC or Scooter?: Yes Wheelchair (FIM): 2 Wheelchair distance (FIM): 1=963-11 ft Distance: 50 ft Wheelchair Level of Assist: 4 Wheel 50 feet with 2 turns (QC: 4 Stairs (FIM): 1 1 Step (curb) (QC): 1 4 Steps (QC): 1 12 Steps (QC): 1 Picking up an Object (QC): 1 PT Plan Problem List Problem List: Activity Tolerance, Functional Strength, Safety, Balance, Gait, Transfer, Bed Mobility, ROM Treatment/Plan Treatment Plan: Continue Plan of Care Treatment Plan: Bed Mobility, Education, Functional Activity Zunilda, Functional Strength, Group Therapy, Gait, Safety, Therapeutic Exercise, Transfers Treatment Duration: Nov 05, 2017 Frequency: At least 5 of 7 days/Wk (IRF) Estimated Hrs Per Day: 1.5 hours per day Patient and/or Family Agrees t: Yes Safety Risks/Education Patient Education: Correct Positioning, Safety Issues Teaching Recipient: Patient Teaching Methods: Demonstration, Discussion Response to Teaching: Reinforcement Needed Time/GCodes Time In: 1300 Time Out: 1330 Total Billed Treatment Time: 30 Total Billed Treatment 1 visit EX 15' FA 15' ANA ALVAREZ PT Oct 11, 2017 13:31
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
[2017-10-11 16:57] VITALS: BP 158/77
[2017-10-11] MEDS: ATORVASTATIN 40 MG (LIPITOR) TABLET GT SCH (21:40)
[2017-10-11 23:25] LABS: BILIRUBIN,URINE NEGATIVE (NEGATIVE); CLARITY,URINE CLEAR; COLOR,URINE AMBER; GLUCOSE, URINE (UA) NEGATIVE (NEGATIVE); KETONES,URINE NEGATIVE (NEGATIVE); LEUKOCYTE ESTERASE ,URINE 1+ (NEGATIVE); NITRITE,URINE NEGATIVE (NEGATIVE); PH,URINE 7 (5-9); PROTEIN,URINE NEGATIVE (NEGATIVE); UROBILINOGEN,URINE NORMAL (NORMAL)
[2017-10-11 23:32] LABS: AMORPHOUS SEDIMENT,UR LARGE AMOR URATES /LPF; BACTERIA,URINE NEGATIVE /HPF; WBC,URINE RARE /HPF
[2017-10-12 05:12] VITALS: BP 122/73
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
[2017-10-12] MEDS: BETHANECHOL 25 MG (URECHOLINE) TAB GT SCH ×4 (06:38→21:21)
[2017-10-12] MEDS ORDERED: RT-ALBUTEROL/IPRATROPIUM 3 ML (DUONEB) VIAL INH PRN (07:15)
[2017-10-12 08:00] LABS: BASOPHILS % (AUTO) 0 % (0-10); EOSINOPHILS # (AUTO) 0.1 10^3/uL (0.0-0.3); EOSINOPHILS % (AUTO) 2 % (0-10); HEMATOCRIT 40 % (40-54); HEMOGLOBIN 13.5 G/DL (13.3-17.7); LYMPHOCYTES # (AUTO) 1.5 X 10^3 (1.0-4.0); LYMPHOCYTES % (AUTO) 24 % (12-44); MEAN CORPUSCULAR HEMOGLOBIN 31 PG (25-34); MEAN CORPUSCULAR HGB CONC 34 G/DL (32-36); MEAN CORPUSCULAR VOLUME 90 FL (80-99); MEAN PLATELET VOLUME 11.9 FL (7.4-10.4); MONOCYTES # (AUTO) 0.5 X 10^3 (0.0-1.0); MONOCYTES % (AUTO) 8 % (0-12); NEUTROPHILS # (AUTO) 4.1 X 10^3 (1.8-7.8); NEUTROPHILS % (AUTO) 66 % (42-75); PLATELET COUNT 183 10^3/uL (130-400); RED BLOOD COUNT 4.39 10^6/uL (4.35-5.85); RED CELL DISTRIBUTION WIDTH 15.4 % (10.0-14.5); WHITE BLOOD COUNT 6.2 10^3/uL (4.3-11.0)
[2017-10-12] MEDS: RT-ALBUTEROL/IPRATROPIUM 3 ML (DUONEB) VIAL INH SCH ×4 (08:02→18:09)
[2017-10-12] MEDS: RT-BUDESONIDE NEBS 0.5 MG/2ML (PULMICORT) AMP INH SCH ×2 (08:02→18:09)
[2017-10-12] MEDS: aCETylcysteine 20% (MUCOMYST) 30ML SOLN VIAL INH SCH ×4 (08:02→18:09)
--- NOTE | 2017-10-12 08:05 | Diagnostic Imaging Report ---
EXAM: CHEST 1 VIEW, AP/PA ONLY INDICATION: Dyspnea. COMPARISON: Chest radiograph 04/03/2017. FINDINGS: Normal heart size and pulmonary vascularity. Calcified aorta. Tracheostomy. No dense consolidation, pleural effusion or pneumothorax. No acute osseous findings. IMPRESSION: No acute cardiopulmonary findings. Dictated by: Dictated on workstation # [id number]
[2017-10-12 08:19] LABS: ALANINE AMINOTRANSFERASE 234 U/L (0-55); ALBUMIN 3.6 GM/DL (3.2-4.5); ALKALINE PHOSPHATASE 131 U/L (40-136); BILIRUBIN,TOTAL 0.6 MG/DL (0.1-1.0); BUN/CREATININE RATIO 23; CALCIUM 8.9 MG/DL (8.5-10.1); CARBON DIOXIDE 28 MMOL/L (21-32); CHLORIDE 105 MMOL/L (98-107); CREATININE SERUM 0.62 MG/DL (0.60-1.30); GFR ESTIMATED > 60; GLUCOSE 117 MG/DL (70-105); SODIUM 142 MMOL/L (135-145); TOTAL PROTEIN 6.2 GM/DL (6.4-8.2)
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
[2017-10-12] MEDS: LEVETIRACETAM 500 MG/ 5 ML UDC ORAL SOLN (KEPPRA) GT SCH ×2 (08:51→21:21)
[2017-10-12] MEDS: meTOprolol TARTRATE 50 MG (LOPRESSOR) TAB GT SCH ×2 (08:51→21:22)
[2017-10-12] MEDS: ALLOPURINOL 100 MG (ZYLOPRIM) TAB GT SCH ×3 (08:51→21:22)
[2017-10-12] MEDS: ASPIRIN 325 MG (5 GR) TABLET GT SCH (08:52)
[2017-10-12] MEDS: FAMOTIDINE 20 MG (PEPCID) TABLET GT SCH ×2 (08:52→21:22)
[2017-10-12] MEDS: SENNA W/DOCUSATE (SENOKOT S) TABLET GT SCH ×2 (08:52→21:22)
--- NOTE | 2017-10-12 09:02 | Physical Therapy Daily Note ---
PT Daily Note-Current Subjective Patient in bed pre tx, agrees to PT, no complains of pain. Will be co-treating with OT for 60 min. Appearance Patient in recliner post tx continue to work with OT. Mental Status Patient Orientation: Person, Non-Verbal/Aphasic Attachments: PEG Tube Transfers Functional [place] Measure 0=Not Assessed/NA 4=Minimal Assistance 1=Total Assistance 5=Supervision or Setup 2=Maximal Assistance 6=Modified [place] 3=Moderate Assistance 7=Complete IndependenceIRFPAI Quality Coding Scale 6 Independent with activity with or without an assistive device 5 Patient requires set up or clean up by helper. Patient completes activity by themselves 4 Supervision or touching assist (CGA). [place] provide cues , steadying assist 3 The helper provides less than half the effort to complete the activity 2 The helper provides more than half the effort to complete the activity 1 Dependent. The helper does all the effort to complete an activity 7 Patient refused to complete or attempt activity 9 The patient did not perform the activity before the current illness or injury 88 Not attempted due to Medical conditions or safety concerns Transfers (B, C, W/C) (FIM): 1 Scootin Rollin Supine to/from Sit: 1 Sit to/from Stand: 1 Bed to/from Chair: 1 Patient can roll to the right side with max assist but dependent to the left side. Treatments Patient was cleaned for BM and dressed. Patient was then transferred to wheelchair via brayan, taken to therapy gym and attempted to get into standing frame. Could not get patient adjusted correctly in standing frame so taken to the parallel bars and stood twice with max assist of 3 for about 1 min each time. Patient taken back to room and hoyered to recliner and OT took over for some grooming. PT worked on bed mobility and transfers, standing, positioning. OT worked on cleaning from BM, dressing, UE positioning during standing. Assessment Current Status: Poor Progress No change in mobility PT Short Term Goals Short Term Goals Time Frame: Oct 22, 2017 Transfers (B,C,W/C) (FIM): 2 Wheelchair (FIM): 2 PT Shaper And Presser Goals Detention Goals PT Detention Goals Time Frame: Nov 05, 2017 Transfers (B,C,W/C) (FIM): 3 Sit to Lying (QC): 3 Lying-Sitting on Side/Bed(QC): 3 Sit to Stand (QC): 3 Rollin Roll Left to Right (QC): 3 Chair/Nrg-xa-Jeuqf Xfer(QC): 3 Car Transfer (QC): 3 Does the Patient Walk: No and Walking Goal IS indicated Gait (FIM): 2 Gait distance (FIM): 1=up to 49 ft Distance: steps only Walk 10 feet (QC): 2 Walk 10ft-Uneven Surface(QC): 88 Walk 50ft with 2 Turns (QC): 88 Walk 150 ft (QC): 88 Gait Level of Assist: 2 Does the Pt use WC or Scooter?: Yes Wheelchair (FIM): 2 Wheelchair distance (FIM): 8=554-48 ft Distance: 50 ft Wheelchair Level of Assist: 4 Wheel 50 feet with 2 turns (QC: 4 Stairs (FIM): 1 1 Step (curb) (QC): 1 4 Steps (QC): 1 12 Steps (QC): 1 Picking up an Object (QC): 1 PT Plan Problem List Problem List: Activity Tolerance, Functional Strength, Safety, Balance, Gait, Transfer, Bed Mobility, ROM Treatment/Plan Treatment Plan: Continue Plan of Care Treatment Plan: Bed Mobility, Education, Functional Activity Zunilda, Functional Strength, Group Therapy, Gait, Safety, Therapeutic Exercise, Transfers Treatment Duration: Nov 05, 2017 Frequency: At least 5 of 7 days/Wk (IRF) Estimated Hrs Per Day: 1.5 hours per day Patient and/or Family Agrees t: Yes Safety Risks/Education Patient Education: Transfer Techniques, Correct Positioning, Safety Issues Teaching Recipient: Patient Teaching Methods: Demonstration, Discussion Response to Teaching: Reinforcement Needed Time/GCodes Time In: 0800 Time Out: 0900 Total Billed Treatment Time: 60 Total Billed Treatment 1 visit FA 60 co-treated with OT for the whole 60' ANA ALVAREZ PT Oct 12, 2017 09:02
--- NOTE | 2017-10-12 10:13 | Speech Therapy Daily Note ---
Speech Daily Progress Note Subjective Date Seen by Provider: Oct 12, 2017 Time Seen by Provider: 09:15 The patient was seated upright in his recliner. The patient greeted the clinician and responded the questions regarding his pain (which he denied) and his progression with therapy ("good"). Objective PO Bolus Trials: Honey-thickened liquids and puree consistencies were dyed blue to aid in the visualization of possible aspiration from the tracheostomy site if it occurs. The patient was provided ten trials of honey-thick liquid via half teaspoon and five teaspoons of puree consistency. Overt signs/symptoms of aspiration were not visualized throughout the session, however, the patient does demonstrate an intermittent wet vocal quality. Following the trials, the patient was unable to follow cues to cough or throat clear to assess for possible aspiration from the tracheostomy site. Prior to bolus trials, the patient coughed and choked on his own secretions. The patient was able to clear his airway with consistent coughing. The RN was notified of dyed bolus trials and a sign was placed above the patient 's bed to notify RT. Assessment Assessment Current Status: Poor Progress Treatment Plan Continue Plan of Care Communication Comprehension: 2 Expression: 1 Social Cognition Social Interaction: 1 Problem Solvin Memory: 1 Speech Short Term Goals Short Term Goals Short Term Goals 1. The patient will display 75% accuracy with oropharyngeal swallowing exercises with moderate clinician verbal cueing. 2. The patient will tolerate 10/10 trials of honey-thick liquid without signs/ symptoms of aspiration or laryngeal penetration. 3. The patient will repeat functional phrases with 75% accuracy and mild clinician verbal cueing. 4. The patient will demonstrate adductor fold exercises with 75% accuracy and moderate clinician verbal cueing. Time Frame-STG: Three Weeks Speech Heat Treating Operator Goals Heat Treating Operator Goals 1. The patient will tolerate the least restrictive consistency (trials and diet ) without signs/symptoms of aspiration or laryngeal penetration. 2. The patient will display improved cognition linguistic function for increased function and safety. Time Frame: Four Weeks Comprehension: 2 Expression: 2 Social Interaction: 3 Problem Solvin Memory: 2 Speech-Plan Treatment Plan Speech Therapy Treatment Plan: Continue Plan of Care Continue skilled speech pathology to target improved swallowing function. Treatment Duration: Nov 02, 2017 Frequency: 4 times per week Estimated Hrs Per Day: .5 hour per day Rehab Potential: Guarded Safety Risks/Education Teaching Recipient: Patient Teaching Methods: Discussion Response to Teaching: Reinforcement Needed Education Topics Provided: Progression of Therapy, Plan of Care Time Speech Therapy Time In: 09:15 Speech Therapy Time Out: 09:45 Total Billed Time: 30 Billed Treatment Time 1, THERESA RICHARD Oct 12, 2017 10:13
--- NOTE | 2017-10-12 10:21 | Occupational Ther Daily Note ---
OT Current Status-Daily Note Subjective Pt alert, lying in bed. Pt mouths 1 word responses to questions, slight vocalization. Pt agrees to therapy. Mental Status/Objective Patient Orientation: Person, Place, Time, Situation Functional [place] Measure 0=Not Assessed/NA 4=Minimal Assistance 1=Total Assistance 5=Supervision or Setup 2=Maximal Assistance 6=Modified [place] 3=Moderate Assistance 7=Complete [place] Attachments: PEG Tube ADL-Treatment OT/PT co-treated due to pt's need for skilled intervention and decreased activity tolerance. Pt assists initiating roll toward R side in bed, dependent for rolling L. Landen lift for transfer to w/c. Dependent for lower body dressing and care after BM. PT working on transfers, APROM of LE's and standing. OT worked on dressing, L UE PROM and taping for L shldr subluxation. After therapy, pt sitting in recliner with call light in reach. All needs met in room. Functional [place] Measure 0=Not Assessed/NA 4=Minimal Assistance 1=Total Assistance 5=Supervision or Setup 2=Maximal Assistance 6=Modified [place] 3=Moderate Assistance 7=Complete IndependenceIRFPAI Quality Coding Scale 6 Independent with activity with or without an assistive device 5 Patient requires set up or clean up by helper. Patient completes activity by themselves 4 Supervision or touching assist (CGA). [place] provide cues , steadying assist 3 The helper provides less than half the effort to complete the activity 2 The helper provides more than half the effort to complete the activity 1 Dependent. The helper does all the effort to complete an activity 7 Patient refused to complete or attempt activity 9 The patient did not perform the activity before the current illness or injury 88 Not attempted due to Medical conditions or safety concerns Lower Body Dressing (FIM): 1 Lower Body Dressing (QC): 1 On/Off Footwear (QC): 1 Toileting (FIM): 1 Toileting Hygiene (QC): 1 Transfers (B, C, W/C) (FIM): 1 OT Short Term Goals Short Term Goals Time Frame: Oct 22, 2017 Eating(FIM): 1 Grooming(FIM): 2 Bathing(FIM): 2 Upper Body Dressing(FIM): 2 Lower Body Dressing(FIM): 2 Toileting(FIM): 2 Transfers (B,C,W/C) (FIM): 2 Toilet/Commode Transfer(FIM): 2 Additional Short Term Goals: 1-Demonstrate ADL Tasks, 2-Verbalize Understanding , 3-ImproveStrength/Zunilda 1=Demonstrate adherence to instructed precautions during ADL tasks. 2=Patient will verbalize/demonstrate understanding of assistive devices/ modifications for ADL. 3=Patient will improve strength/tolerance for activity to enable patient to perform ADL's. OT Precision Layout Worker Goals Precision Layout Worker Goals Time Frame: Nov 05, 2017 Eating (FIM): 1 Groomin Oral Hygiene (QC): 3 Bathing(FIM): 3 Shower/Bathe Self (QC): 3 Upper Body Dressing(FIM): 3 Upper Body Dressing (QC): 3 Lower Body Dressing(FIM): 3 Lower Body Dressing (QC): 3 On/Off Footwear (QC): 3 Toileting(FIM): 3 Toileting Hygiene (QC): 3 Transfers (B,C,W/C) (FIM): 3 Toilet/Commode Transfer(FIM): 3 Toilet/Commode Transfer (QC): 3 Shower Transfer(FIM): 3 Comprehension(FIM): 2 Expression (FIM): 2 Social Interaction(FIM): 3 Problem Solving(FIM): 2 Memory(FIM): 2 Additional Goals: 1-Demonstrate ADL Tasks, 2-Verbalize Understanding, 3- ImproveStrength/Zunilda 1=Demonstrate adherence to instructed precautions during ADL tasks. 2=Patient will verbalize/demonstrate understanding of assistive devices/ modifications for ADL. 3=Patient will improve strength/tolerance for activity to enable patient to perform ADL's. OT Education/Plan Discharge Recommendations Plan/Recommendations: Continue POC Treatment Plan/Plan of Care Patient would benefit from OT for education, treatment and training to promote independence in ADL's, mobility, safety and/or upper extremity function for ADL' s. Plan of Care: ADL Retraining, Functional Mobility, UE Funct Exercise/Act Treatment Duration: Nov 05, 2017 Frequency: At least 5 of 7 days/Wk (IRF) Estimated Hrs Per Day: 1.5 hours per day Agreement: Yes Rehab Potential: Guarded Time/GCodes Start Time: 08:00 Stop Time: 09:15 Total Time Billed (hr/min): 75 Billed Treatment Time 1 visit-FA 5 (75 min) co-treat with PT 60 min individual 15 min NGUYEN FREEDMAN Oct 12, 2017 10:21
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
--- NOTE | 2017-10-12 15:08 | Physical Therapy Daily Note ---
PT Daily Note-Current Subjective Patient in bed pre tx, agrees to PROM bilateral lower extremities, no complaints of pain. Appearance Patient in bed post tx with nurse call, phone, tray, all needs met. RT in room when PT leaves. Mental Status Patient Orientation: Person, Unable to Assess, Non-Verbal/Aphasic Attachments: PEG Tube Transfers Functional [place] Measure 0=Not Assessed/NA 4=Minimal Assistance 1=Total Assistance 5=Supervision or Setup 2=Maximal Assistance 6=Modified [place] 3=Moderate Assistance 7=Complete IndependenceIRFPAI Quality Coding Scale 6 Independent with activity with or without an assistive device 5 Patient requires set up or clean up by helper. Patient completes activity by themselves 4 Supervision or touching assist (CGA). [place] provide cues , steadying assist 3 The helper provides less than half the effort to complete the activity 2 The helper provides more than half the effort to complete the activity 1 Dependent. The helper does all the effort to complete an activity 7 Patient refused to complete or attempt activity 9 The patient did not perform the activity before the current illness or injury 88 Not attempted due to Medical conditions or safety concerns Exercises PROM to bilateral lower extremities all planes. Treatments PROM/stretching Assessment Current Status: Poor Progress Patient has tight hamstrings bilaterally, tight hip external rotators on the right side. PT Short Term Goals Short Term Goals Time Frame: Oct 22, 2017 Transfers (B,C,W/C) (FIM): 2 Wheelchair (FIM): 2 PT [facility] Goals [facility] Goals PT Informatica Developer Goals Time Frame: Nov 05, 2017 Transfers (B,C,W/C) (FIM): 3 Sit to Lying (QC): 3 Lying-Sitting on Side/Bed(QC): 3 Sit to Stand (QC): 3 Rollin Roll Left to Right (QC): 3 Chair/Jzc-kl-Wonzl Xfer(QC): 3 Car Transfer (QC): 3 Does the Patient Walk: No and Walking Goal IS indicated Gait (FIM): 2 Gait distance (FIM): 1=up to 49 ft Distance: steps only Walk 10 feet (QC): 2 Walk 10ft-Uneven Surface(QC): 88 Walk 50ft with 2 Turns (QC): 88 Walk 150 ft (QC): 88 Gait Level of Assist: 2 Does the Pt use WC or Scooter?: Yes Wheelchair (FIM): 2 Wheelchair distance (FIM): 2=608-89 ft Distance: 50 ft Wheelchair Level of Assist: 4 Wheel 50 feet with 2 turns (QC: 4 Stairs (FIM): 1 1 Step (curb) (QC): 1 4 Steps (QC): 1 12 Steps (QC): 1 Picking up an Object (QC): 1 PT Plan Problem List Problem List: Activity Tolerance, Functional Strength, Safety, Balance, Gait, Transfer, Bed Mobility, ROM Treatment/Plan Treatment Plan: Continue Plan of Care Treatment Plan: Bed Mobility, Education, Functional Activity Zunilda, Functional Strength, Group Therapy, Gait, Safety, Therapeutic Exercise, Transfers Treatment Duration: Nov 05, 2017 Frequency: At least 5 of 7 days/Wk (IRF) Estimated Hrs Per Day: 1.5 hours per day Patient and/or Family Agrees t: Yes Safety Risks/Education Patient Education: Correct Positioning, Safety Issues Teaching Recipient: Patient Teaching Methods: Demonstration, Discussion Response to Teaching: Reinforcement Needed Time/GCodes Time In: 1450 Time Out: 1505 Total Billed Treatment Time: 15 Total Billed Treatment 1 visit EX ANA CONNELL PT Oct 12, 2017 15:08
[2017-10-12 17:20] VITALS: BP 183/93
[2017-10-12 17:50] VITALS: BP 147/75
[2017-10-12] MEDS: ATORVASTATIN 40 MG (LIPITOR) TABLET GT SCH (21:22)
[2017-10-12] MEDS: traZODone 50 MG (DESYREL) TAB PO SCH (21:22)
[2017-10-13 05:02] VITALS: BP 115/66
[2017-10-13] MEDS: BETHANECHOL 25 MG (URECHOLINE) TAB GT SCH ×4 (06:04→21:09)
[2017-10-13] MEDS: RT-ALBUTEROL/IPRATROPIUM 3 ML (DUONEB) VIAL INH SCH ×4 (06:27→18:43)
[2017-10-13] MEDS: aCETylcysteine 20% (MUCOMYST) 30ML SOLN VIAL INH SCH ×4 (06:27→18:43)
[2017-10-13] MEDS: RT-BUDESONIDE NEBS 0.5 MG/2ML (PULMICORT) AMP INH SCH ×2 (06:31→18:43)
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
--- NOTE | 2017-10-13 09:02 | Physical Therapy Daily Note ---
PT Daily Note-Current Subjective Pt agreed to exercise. Transfers Functional [place] Measure 0=Not Assessed/NA 4=Minimal Assistance 1=Total Assistance 5=Supervision or Setup 2=Maximal Assistance 6=Modified [place] 3=Moderate Assistance 7=Complete IndependenceIRFPAI Quality Coding Scale 6 Independent with activity with or without an assistive device 5 Patient requires set up or clean up by helper. Patient completes activity by themselves 4 Supervision or touching assist (CGA). [place] provide cues , steadying assist 3 The helper provides less than half the effort to complete the activity 2 The helper provides more than half the effort to complete the activity 1 Dependent. The helper does all the effort to complete an activity 7 Patient refused to complete or attempt activity 9 The patient did not perform the activity before the current illness or injury 88 Not attempted due to Medical conditions or safety concerns Exercises Supine Reps: 15 Performed (B) LE exercises x 15 - 20 reps. PROM to all joints with end range stretch. Active assist where patient able and facilitation techniques to inactive muscle groups. Assessment Pt put forth low effort to assist with exercises. He was encouraged to work with increase effort with a goal of improved function. PT Short Term Goals Short Term Goals Time Frame: Oct 22, 2017 Transfers (B,C,W/C) (FIM): 2 Wheelchair (FIM): 2 PT [facility] Goals [facility] Goals PT Management Supervisor Goals Time Frame: Nov 05, 2017 Transfers (B,C,W/C) (FIM): 3 Sit to Lying (QC): 3 Lying-Sitting on Side/Bed(QC): 3 Sit to Stand (QC): 3 Rollin Roll Left to Right (QC): 3 Chair/Wkt-ye-Zjgcm Xfer(QC): 3 Car Transfer (QC): 3 Does the Patient Walk: No and Walking Goal IS indicated Gait (FIM): 2 Gait distance (FIM): 1=up to 49 ft Distance: steps only Walk 10 feet (QC): 2 Walk 10ft-Uneven Surface(QC): 88 Walk 50ft with 2 Turns (QC): 88 Walk 150 ft (QC): 88 Gait Level of Assist: 2 Does the Pt use WC or Scooter?: Yes Wheelchair (FIM): 2 Wheelchair distance (FIM): 3=635-42 ft Distance: 50 ft Wheelchair Level of Assist: 4 Wheel 50 feet with 2 turns (QC: 4 Stairs (FIM): 1 1 Step (curb) (QC): 1 4 Steps (QC): 1 12 Steps (QC): 1 Picking up an Object (QC): 1 PT Plan Problem List Problem List: Activity Tolerance, Functional Strength, Transfer, Bed Mobility Treatment/Plan Treatment Plan: Continue Plan of Care Treatment Plan: Bed Mobility, Education, Functional Activity Zunilda, Functional Strength, Group Therapy, Gait, Safety, Therapeutic Exercise, Transfers Treatment Duration: Nov 05, 2017 Frequency: At least 5 of 7 days/Wk (IRF) Estimated Hrs Per Day: 1.5 hours per day Patient and/or Family Agrees t: Yes Time/GCodes Time In: 830 Time Out: 850 Total Billed Treatment Time: 20 Total Billed Treatment visit, exercise 20 min DEMOND SWEET PT Oct 13, 2017 09:02
[2017-10-13] MEDS: ALLOPURINOL 100 MG (ZYLOPRIM) TAB GT SCH ×3 (09:22→21:09)
[2017-10-13] MEDS: ASPIRIN 325 MG (5 GR) TABLET GT SCH (09:22)
[2017-10-13] MEDS: meTOprolol TARTRATE 50 MG (LOPRESSOR) TAB GT SCH ×2 (09:22→21:16)
[2017-10-13] MEDS: SENNA W/DOCUSATE (SENOKOT S) TABLET GT SCH ×2 (09:22→20:24)
[2017-10-13] MEDS: LEVETIRACETAM 500 MG/ 5 ML UDC ORAL SOLN (KEPPRA) GT SCH ×2 (09:22→21:08)
[2017-10-13] MEDS: FAMOTIDINE 20 MG (PEPCID) TABLET GT SCH ×2 (09:22→21:09)
[2017-10-13 18:00] VITALS: BP 164/79
[2017-10-13] MEDS: ATORVASTATIN 40 MG (LIPITOR) TABLET GT SCH (21:09)
[2017-10-13] MEDS: traZODone 50 MG (DESYREL) TAB PO SCH (21:09)
[2017-10-14 05:46] VITALS: BP 118/66
[2017-10-14] MEDS: BETHANECHOL 25 MG (URECHOLINE) TAB GT SCH ×4 (05:50→21:22)
[2017-10-14] MEDS: aCETylcysteine 20% (MUCOMYST) 30ML SOLN VIAL INH SCH ×4 (07:00→19:54)
[2017-10-14] MEDS: RT-ALBUTEROL/IPRATROPIUM 3 ML (DUONEB) VIAL INH SCH ×4 (07:08→19:54)
[2017-10-14] MEDS: ASPIRIN 325 MG (5 GR) TABLET GT SCH (08:49)
[2017-10-14] MEDS: FAMOTIDINE 20 MG (PEPCID) TABLET GT SCH ×2 (08:49→21:22)
[2017-10-14] MEDS: ALLOPURINOL 100 MG (ZYLOPRIM) TAB GT SCH ×3 (08:49→21:22)
[2017-10-14] MEDS: LEVETIRACETAM 500 MG/ 5 ML UDC ORAL SOLN (KEPPRA) GT SCH ×2 (08:49→21:22)
[2017-10-14] MEDS: meTOprolol TARTRATE 50 MG (LOPRESSOR) TAB GT SCH ×2 (08:50→21:22)
[2017-10-14] MEDS: SENNA W/DOCUSATE (SENOKOT S) TABLET GT SCH ×2 (08:51→21:22)
[2017-10-14] MEDS: RT-BUDESONIDE NEBS 0.5 MG/2ML (PULMICORT) AMP INH SCH ×2 (10:55→19:54)
[2017-10-14 17:59] VITALS: BP 154/75
[2017-10-14] MEDS: traZODone 50 MG (DESYREL) TAB PO SCH (21:22)
[2017-10-14] MEDS: ATORVASTATIN 40 MG (LIPITOR) TABLET GT SCH (21:22)
[2017-10-15 05:19] VITALS: BP 135/76
[2017-10-15] MEDS: BETHANECHOL 25 MG (URECHOLINE) TAB GT SCH ×4 (05:44→21:35)
[2017-10-15] MEDS: RT-ALBUTEROL/IPRATROPIUM 3 ML (DUONEB) VIAL INH SCH ×4 (07:25→19:10)
[2017-10-15] MEDS: RT-BUDESONIDE NEBS 0.5 MG/2ML (PULMICORT) AMP INH SCH ×2 (07:25→21:32)
[2017-10-15] MEDS: aCETylcysteine 20% (MUCOMYST) 30ML SOLN VIAL INH SCH ×3 (07:26→19:10)
--- NOTE | 2017-10-15 09:00 | Physical Therapy Daily Note ---
PT Daily Note-Current Subjective Patient in bed pre tx, agrees to PT, no complaints of pain. Will be co- treating with OT for 60 min. Appearance Patient in bed post tx with OT still working with patient. Mental Status Patient Orientation: Person, Unable to Assess, Non-Verbal/Aphasic Attachments: PEG Tube Transfers Functional [place] Measure 0=Not Assessed/NA 4=Minimal Assistance 1=Total Assistance 5=Supervision or Setup 2=Maximal Assistance 6=Modified [place] 3=Moderate Assistance 7=Complete IndependenceIRFPAI Quality Coding Scale 6 Independent with activity with or without an assistive device 5 Patient requires set up or clean up by helper. Patient completes activity by themselves 4 Supervision or touching assist (CGA). [place] provide cues , steadying assist 3 The helper provides less than half the effort to complete the activity 2 The helper provides more than half the effort to complete the activity 1 Dependent. The helper does all the effort to complete an activity 7 Patient refused to complete or attempt activity 9 The patient did not perform the activity before the current illness or injury 88 Not attempted due to Medical conditions or safety concerns Transfers (B, C, W/C) (FIM): 1 Scootin Rollin Supine to/from Sit: 1 Sit to/from Stand: 1 Bed to/from Chair: 1 Patient is dependent for all mobility except he can roll to the right side with max assist. Transfers with brayan. Treatments Patient was cleaned and dressed before being transferred to wheelchair via brayan. He was taken to the therapy gym and into the standing frame where he stood for about 15 min and worked with safety flash cards. Patient was then put back into wheelchair and then hoyered back into bed where OT continued to work with him. PT worked on rolling, bed mobility, transfers, trunk and body positioning while standing. OT worked on cleaning, dressing, UE positioning and flash cards. Assessment Current Status: Poor Progress no change in mobility PT Short Term Goals Short Term Goals Time Frame: Oct 22, 2017 Transfers (B,C,W/C) (FIM): 2 Wheelchair (FIM): 2 PT Car Rental Deliverer Goals Car Rental Deliverer Goals PT Intermediate Goals Time Frame: Nov 05, 2017 Transfers (B,C,W/C) (FIM): 3 Sit to Lying (QC): 3 Lying-Sitting on Side/Bed(QC): 3 Sit to Stand (QC): 3 Rollin Roll Left to Right (QC): 3 Chair/Gbq-tm-Aibje Xfer(QC): 3 Car Transfer (QC): 3 Does the Patient Walk: No and Walking Goal IS indicated Gait (FIM): 2 Gait distance (FIM): 1=up to 49 ft Distance: steps only Walk 10 feet (QC): 2 Walk 10ft-Uneven Surface(QC): 88 Walk 50ft with 2 Turns (QC): 88 Walk 150 ft (QC): 88 Gait Level of Assist: 2 Does the Pt use WC or Scooter?: Yes Wheelchair (FIM): 2 Wheelchair distance (FIM): 1=648-72 ft Distance: 50 ft Wheelchair Level of Assist: 4 Wheel 50 feet with 2 turns (QC: 4 Stairs (FIM): 1 1 Step (curb) (QC): 1 4 Steps (QC): 1 12 Steps (QC): 1 Picking up an Object (QC): 1 PT Plan Problem List Problem List: Activity Tolerance, Functional Strength, Safety, Balance, Gait, Transfer, Bed Mobility, ROM Treatment/Plan Treatment Plan: Continue Plan of Care Treatment Plan: Bed Mobility, Education, Functional Activity Zunilda, Functional Strength, Group Therapy, Gait, Safety, Therapeutic Exercise, Transfers Treatment Duration: Nov 05, 2017 Frequency: At least 5 of 7 days/Wk (IRF) Estimated Hrs Per Day: 1.5 hours per day Patient and/or Family Agrees t: Yes Safety Risks/Education Patient Education: Transfer Techniques, Correct Positioning, Safety Issues Teaching Recipient: Patient Teaching Methods: Demonstration, Discussion Response to Teaching: Reinforcement Needed Time/GCodes Time In: 0800 Time Out: 0900 Total Billed Treatment Time: 60 Total Billed Treatment 1 visit FA 60' co-treat with OT for 60 min ANA ALVAREZ PT Oct 15, 2017 09:00
--- NOTE | 2017-10-15 09:19 | Occupational Ther Daily Note ---
OT Current Status-Daily Note Subjective Pt alert, lying in bed. Pt mouths yes/no or one word to answer questions. Pt agreeable to therapy. Pt stated yes to question about being ready for his shower tomorrow. Mental Status/Objective Patient Orientation: Person, Place, Non-Verbal/Aphasic, Time, Situation Functional [place] Measure 0=Not Assessed/NA 4=Minimal Assistance 1=Total Assistance 5=Supervision or Setup 2=Maximal Assistance 6=Modified [place] 3=Moderate Assistance 7=Complete [place] Attachments: PEG Tube, Other-See Comments (trach) ADL-Treatment OT/PT co-treated due to pt's need for skilled intervention and decreased activity tolerance. Pt assists initiating roll toward R side in bed, dependent for rolling L. Landen lift for transfer to w/c. Dependent for lower body dressing. Dependent for toileting after incontinence. PT working on transfers , APROM of LE's and standing. OT worked on dressing, L UE PROM and toileting. Functional [place] Measure 0=Not Assessed/NA 4=Minimal Assistance 1=Total Assistance 5=Supervision or Setup 2=Maximal Assistance 6=Modified [place] 3=Moderate Assistance 7=Complete IndependenceIRFPAI Quality Coding Scale 6 Independent with activity with or without an assistive device 5 Patient requires set up or clean up by helper. Patient completes activity by themselves 4 Supervision or touching assist (CGA). [place] provide cues , steadying assist 3 The helper provides less than half the effort to complete the activity 2 The helper provides more than half the effort to complete the activity 1 Dependent. The helper does all the effort to complete an activity 7 Patient refused to complete or attempt activity 9 The patient did not perform the activity before the current illness or injury 88 Not attempted due to Medical conditions or safety concerns Upper Body (FIM): 2 (Assists with verbal direction to don/doff shirt over head with one handed tech. Assist to thread each arm into sleeves.) Upper Body Dressing (QC): 2 Lower Body Dressing (FIM): 1 (Assist to lift R LE. Dependent for all other.) Lower Body Dressing (QC): 1 On/Off Footwear (QC): 1 Toileting (FIM): 1 (Pt incontinent of bladder. Dependent for clothing manipulation and hygiene.) Toileting Hygiene (QC): 1 Transfers (B, C, W/C) (FIM): 1 Other Treatment Pt completed stander, see PT notes for times. Pt able to complete safe/unsafe environmental activity using pictures. Pt used gestures and eye gaze to pic answers, correct 90% of time. After therapy, pt lying in bed with call light in reach. Nrsg in room. OT Short Term Goals Short Term Goals Time Frame: Oct 22, 2017 Eating(FIM): 1 Grooming(FIM): 2 Bathing(FIM): 2 Upper Body Dressing(FIM): 2 Lower Body Dressing(FIM): 2 Toileting(FIM): 2 Transfers (B,C,W/C) (FIM): 2 Toilet/Commode Transfer(FIM): 2 Additional Short Term Goals: 1-Demonstrate ADL Tasks, 2-Verbalize Understanding , 3-ImproveStrength/Zunilda 1=Demonstrate adherence to instructed precautions during ADL tasks. 2=Patient will verbalize/demonstrate understanding of assistive devices/ modifications for ADL. 3=Patient will improve strength/tolerance for activity to enable patient to perform ADL's. OT Digital Printer Operator Goals Half-Way Goals Time Frame: Nov 05, 2017 Eating (FIM): 1 Groomin Oral Hygiene (QC): 3 Bathing(FIM): 3 Shower/Bathe Self (QC): 3 Upper Body Dressing(FIM): 3 Upper Body Dressing (QC): 3 Lower Body Dressing(FIM): 3 Lower Body Dressing (QC): 3 On/Off Footwear (QC): 3 Toileting(FIM): 3 Toileting Hygiene (QC): 3 Transfers (B,C,W/C) (FIM): 3 Toilet/Commode Transfer(FIM): 3 Toilet/Commode Transfer (QC): 3 Shower Transfer(FIM): 3 Comprehension(FIM): 2 Expression (FIM): 2 Social Interaction(FIM): 3 Problem Solving(FIM): 2 Memory(FIM): 2 Additional Goals: 1-Demonstrate ADL Tasks, 2-Verbalize Understanding, 3- ImproveStrength/Zunilda 1=Demonstrate adherence to instructed precautions during ADL tasks. 2=Patient will verbalize/demonstrate understanding of assistive devices/ modifications for ADL. 3=Patient will improve strength/tolerance for activity to enable patient to perform ADL's. OT Education/Plan Discharge Recommendations Plan/Recommendations: Continue POC Treatment Plan/Plan of Care Patient would benefit from OT for education, treatment and training to promote independence in ADL's, mobility, safety and/or upper extremity function for ADL' s. Plan of Care: ADL Retraining, Functional Mobility, UE Funct Exercise/Act Treatment Duration: Nov 05, 2017 Frequency: At least 5 of 7 days/Wk (IRF) Estimated Hrs Per Day: 1.5 hours per day Agreement: Yes Rehab Potential: Guarded Time/GCodes Start Time: 08:00 Stop Time: 09:15 Total Time Billed (hr/min): 75 Billed Treatment Time 1 visit-FA 4 (60 min) ADL 1 (15 min) NGUYEN FREEDMAN Oct 15, 2017 09:19
[2017-10-15] MEDS: SENNA W/DOCUSATE (SENOKOT S) TABLET GT SCH ×2 (09:20→21:35)
[2017-10-15] MEDS: LEVETIRACETAM 500 MG/ 5 ML UDC ORAL SOLN (KEPPRA) GT SCH ×2 (09:20→21:34)
[2017-10-15] MEDS: FAMOTIDINE 20 MG (PEPCID) TABLET GT SCH ×2 (09:20→21:35)
[2017-10-15] MEDS: ASPIRIN 325 MG (5 GR) TABLET GT SCH (09:20)
[2017-10-15] MEDS: meTOprolol TARTRATE 50 MG (LOPRESSOR) TAB GT SCH ×2 (09:20→21:35)
[2017-10-15] MEDS: ALLOPURINOL 100 MG (ZYLOPRIM) TAB GT SCH ×3 (09:22→21:34)
--- NOTE | 2017-10-15 10:02 | Speech Therapy Daily Note ---
Speech Daily Progress Note Subjective Date Seen by Provider: Oct 15, 2017 Time Seen by Provider: 09:15 The patient was seated upright in his bed The patient greeted the clinician with eye gaze and was agreeable to participation in the dysphagia treatment session. Objective PO Bolus Trials: Honey-thickened liquids and puree consistencies were dyed blue to aid in the visualization of possible aspiration from the tracheostomy site if it occurs. The patient was provided ten trials of honey-thick liquid via half teaspoon and ten teaspoons of puree consistency. Overt signs/symptoms of aspiration were not visualized throughout the session. Following the trials, the patient was unable to follow cues to cough or throat clear to assess for possible aspiration from the tracheostomy site. The RN was notified of dyed bolus trials and a sign was placed above the patient 's bed to notify RT. The patient's RN denied any blue suctioned secretions from the previous trials. The patient is scheduled for a modified barium swallow evaluation on 10/16/2017 at 9:00. Assessment Assessment Current Status: Fair Progress Treatment Plan Continue Plan of Care Communication Comprehension: 2 Expression: 1 Social Cognition Social Interaction: 1 Problem Solvin Memory: 1 Speech Short Term Goals Short Term Goals Short Term Goals 1. The patient will display 75% accuracy with oropharyngeal swallowing exercises with moderate clinician verbal cueing. 2. The patient will tolerate 10/10 trials of honey-thick liquid without signs/ symptoms of aspiration or laryngeal penetration. 3. The patient will repeat functional phrases with 75% accuracy and mild clinician verbal cueing. 4. The patient will demonstrate adductor fold exercises with 75% accuracy and moderate clinician verbal cueing. Time Frame-STG: Three Weeks Speech Quality Assurance Specialist Goals Group Home Goals 1. The patient will tolerate the least restrictive consistency (trials and diet ) without signs/symptoms of aspiration or laryngeal penetration. 2. The patient will display improved cognition linguistic function for increased function and safety. Time Frame: Four Weeks Comprehension: 2 Expression: 2 Social Interaction: 3 Problem Solvin Memory: 2 Speech-Plan Treatment Plan Speech Therapy Treatment Plan: Continue Plan of Care Continue skilled speech pathology to target improved swallowing function. Treatment Duration: Nov 02, 2017 Frequency: 4 times per week Estimated Hrs Per Day: .5 hour per day Rehab Potential: Guarded Safety Risks/Education Teaching Recipient: Patient Teaching Methods: Discussion Response to Teaching: Reinforcement Needed Education Topics Provided: Results, Recommendations, Plan of Care, Modified Barium Swallow Evaluation Time Speech Therapy Time In: 09:15 Speech Therapy Time Out: 09:45 Total Billed Time: 30 Billed Treatment Time 1, THERESA RICHARD Oct 15, 2017 10:02
--- NOTE | 2017-10-15 15:02 | Physical Therapy Daily Note ---
PT Daily Note-Current Subjective and patient agree to PT. Pain Numeric Pain Scale: 0-No Pain Location: No Pain Reported Transfers Functional [place] Measure 0=Not Assessed/NA 4=Minimal Assistance 1=Total Assistance 5=Supervision or Setup 2=Maximal Assistance 6=Modified [place] 3=Moderate Assistance 7=Complete IndependenceIRFPAI Quality Coding Scale 6 Independent with activity with or without an assistive device 5 Patient requires set up or clean up by helper. Patient completes activity by themselves 4 Supervision or touching assist (CGA). [place] provide cues , steadying assist 3 The helper provides less than half the effort to complete the activity 2 The helper provides more than half the effort to complete the activity 1 Dependent. The helper does all the effort to complete an activity 7 Patient refused to complete or attempt activity 9 The patient did not perform the activity before the current illness or injury 88 Not attempted due to Medical conditions or safety concerns Exercises Supine Ex: Ankle pumps, Quad Set, Heel Slides, Straight leg raise, Hip abd/add Supine Reps: 20 (AAROM bilaterally) Assessment Patient tolerated treatment well and heel protectors place on patient after treatment. PT to continue to increase activity as tolerated by patient. PT Short Term Goals Short Term Goals Time Frame: Oct 22, 2017 Transfers (B,C,W/C) (FIM): 2 Wheelchair (FIM): 2 PT Shelter Goals Shelter Goals PT Spare Hand Goals Time Frame: Nov 05, 2017 Transfers (B,C,W/C) (FIM): 3 Sit to Lying (QC): 3 Lying-Sitting on Side/Bed(QC): 3 Sit to Stand (QC): 3 Rollin Roll Left to Right (QC): 3 Chair/Ptj-xz-Vddoi Xfer(QC): 3 Car Transfer (QC): 3 Does the Patient Walk: No and Walking Goal IS indicated Gait (FIM): 2 Gait distance (FIM): 1=up to 49 ft Distance: steps only Walk 10 feet (QC): 2 Walk 10ft-Uneven Surface(QC): 88 Walk 50ft with 2 Turns (QC): 88 Walk 150 ft (QC): 88 Gait Level of Assist: 2 Does the Pt use WC or Scooter?: Yes Wheelchair (FIM): 2 Wheelchair distance (FIM): 9=930-24 ft Distance: 50 ft Wheelchair Level of Assist: 4 Wheel 50 feet with 2 turns (QC: 4 Stairs (FIM): 1 1 Step (curb) (QC): 1 4 Steps (QC): 1 12 Steps (QC): 1 Picking up an Object (QC): 1 PT Plan Treatment/Plan Treatment Plan: Continue Plan of Care Treatment Plan: Bed Mobility, Education, Functional Activity Zunilda, Functional Strength, Group Therapy, Gait, Safety, Therapeutic Exercise, Transfers Treatment Duration: Nov 05, 2017 Frequency: At least 5 of 7 days/Wk (IRF) Estimated Hrs Per Day: 1.5 hours per day Patient and/or Family Agrees t: Yes Time/GCodes Time In: 1435 Time Out: 1450 Total Billed Treatment Time: 15 Total Billed Treatment 1 visit EX 15 min BEVERLY DOYLE PT Oct 15, 2017 15:02
[2017-10-15 17:54] VITALS: BP 130/68
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
[2017-10-15] MEDS: traZODone 50 MG (DESYREL) TAB PO SCH (21:34)
[2017-10-15] MEDS: ATORVASTATIN 40 MG (LIPITOR) TABLET GT SCH (21:35)
[2017-10-16 06:00] VITALS: BP 122/64
[2017-10-16] MEDS: BETHANECHOL 25 MG (URECHOLINE) TAB GT SCH ×4 (06:17→21:37)
[2017-10-16] MEDS: RT-ALBUTEROL/IPRATROPIUM 3 ML (DUONEB) VIAL INH SCH ×4 (07:00→20:06)
[2017-10-16] MEDS: aCETylcysteine 20% (MUCOMYST) 30ML SOLN VIAL INH SCH ×2 (07:00→10:56)
[2017-10-16] MEDS: RT-BUDESONIDE NEBS 0.5 MG/2ML (PULMICORT) AMP INH SCH ×2 (07:17→20:07)
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
[2017-10-16] MEDS: ALLOPURINOL 100 MG (ZYLOPRIM) TAB GT SCH ×3 (08:05→21:37)
[2017-10-16] MEDS: SENNA W/DOCUSATE (SENOKOT S) TABLET GT SCH ×2 (08:05→21:37)
[2017-10-16] MEDS: FAMOTIDINE 20 MG (PEPCID) TABLET GT SCH ×2 (08:05→21:37)
[2017-10-16] MEDS: ASPIRIN 325 MG (5 GR) TABLET GT SCH (08:05)
[2017-10-16] MEDS: meTOprolol TARTRATE 50 MG (LOPRESSOR) TAB GT SCH ×2 (08:05→21:15)
[2017-10-16] MEDS: LEVETIRACETAM 500 MG/ 5 ML UDC ORAL SOLN (KEPPRA) GT SCH ×2 (08:05→21:40)
--- NOTE | 2017-10-16 09:13 | Physical Therapy Daily Note ---
PT Daily Note-Current Subjective Patient in bed pre tx, agrees to PT, no complaints of pain at rest. Will be co- treating with OT for shower and dressing and get into chair for swallow study. Appearance Patient in swallow study chair post tx. Mental Status Patient Orientation: Person, Unable to Assess, Non-Verbal/Aphasic Attachments: PEG Tube Transfers Functional [place] Measure 0=Not Assessed/NA 4=Minimal Assistance 1=Total Assistance 5=Supervision or Setup 2=Maximal Assistance 6=Modified [place] 3=Moderate Assistance 7=Complete IndependenceIRFPAI Quality Coding Scale 6 Independent with activity with or without an assistive device 5 Patient requires set up or clean up by helper. Patient completes activity by themselves 4 Supervision or touching assist (CGA). [place] provide cues , steadying assist 3 The helper provides less than half the effort to complete the activity 2 The helper provides more than half the effort to complete the activity 1 Dependent. The helper does all the effort to complete an activity 7 Patient refused to complete or attempt activity 9 The patient did not perform the activity before the current illness or injury 88 Not attempted due to Medical conditions or safety concerns Transfers (B, C, W/C) (FIM): 1 Scootin Rollin Supine to/from Sit: 1 Bed to/from Chair: 1 Patient can roll to the right side with max assist. Treatments Patient was rolled several times at start of tx to get undressed and cleaned. Patient then was hoyered to shower chair, taken to shower room, and bathed. Took patient back to his room, hoyered to bed, rolled several times to get sling out and dressed. Placed sling back underneath him and hoyered him to swallow study chair. Assessment Current Status: Poor Progress No change in mobility. PT Short Term Goals Short Term Goals Time Frame: Oct 22, 2017 Transfers (B,C,W/C) (FIM): 2 Wheelchair (FIM): 2 PT Direct Support Staff Goals Retirement Goals PT Retirement Goals Time Frame: Nov 05, 2017 Transfers (B,C,W/C) (FIM): 3 Sit to Lying (QC): 3 Lying-Sitting on Side/Bed(QC): 3 Sit to Stand (QC): 3 Rollin Roll Left to Right (QC): 3 Chair/Msq-xt-Citys Xfer(QC): 3 Car Transfer (QC): 3 Does the Patient Walk: No and Walking Goal IS indicated Gait (FIM): 2 Gait distance (FIM): 1=up to 49 ft Distance: steps only Walk 10 feet (QC): 2 Walk 10ft-Uneven Surface(QC): 88 Walk 50ft with 2 Turns (QC): 88 Walk 150 ft (QC): 88 Gait Level of Assist: 2 Does the Pt use WC or Scooter?: Yes Wheelchair (FIM): 2 Wheelchair distance (FIM): 9=567-40 ft Distance: 50 ft Wheelchair Level of Assist: 4 Wheel 50 feet with 2 turns (QC: 4 Stairs (FIM): 1 1 Step (curb) (QC): 1 4 Steps (QC): 1 12 Steps (QC): 1 Picking up an Object (QC): 1 PT Plan Problem List Problem List: Activity Tolerance, Functional Strength, Safety, Balance, Gait, Transfer, Bed Mobility, ROM Treatment/Plan Treatment Plan: Continue Plan of Care Treatment Plan: Bed Mobility, Education, Functional Activity Zunilda, Functional Strength, Group Therapy, Gait, Safety, Therapeutic Exercise, Transfers Treatment Duration: Nov 05, 2017 Frequency: At least 5 of 7 days/Wk (IRF) Estimated Hrs Per Day: 1.5 hours per day Patient and/or Family Agrees t: Yes Safety Risks/Education Patient Education: Transfer Techniques, Correct Positioning, Safety Issues Teaching Recipient: Patient Teaching Methods: Demonstration, Discussion Response to Teaching: Reinforcement Needed Time/GCodes Time In: 0800 Time Out: 0900 Total Billed Treatment Time: 60 Total Billed Treatment 1 visit FA 60' Co-treated with OT for the whole 60 min. PT worked on rolling, transfers, sitting balance and trunk positioning during bathing. OT worked on dressing, bathing, assisted with rolling and transfers. ANA ALVAREZ PT Oct 16, 2017 09:13
--- NOTE | 2017-10-16 09:56 | Diagnostic Imaging Report ---
INDICATION: Stroke. TECHNIQUE: The study was performed in conjunction with Speech Therapy. Videofluoroscopy was performed during the swallowing of barium in multiple consistencies. A total of 35 seconds of fluoroscopy was utilized. FINDINGS: The patient ingested honey thick, nectar, thin, and pudding consistencies. The oral phase is unremarkable. There is normal epiglottic tilt and laryngeal elevation. There was a single episode of penetration during the swallowing of thin liquid with a spoon. All other consistencies were unremarkable. No aspiration was observed. IMPRESSION: Unremarkable modified barium swallow study apart from flash penetration during the swallowing of thin barium. No aspiration was observed. Dictated by: Dictated on workstation # [id number]
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
--- NOTE | 2017-10-16 10:17 | Occupational Ther Daily Note ---
OT Current Status-Daily Note Subjective Pt alert, lying in bed. Agrees to therapy. Mental Status/Objective Patient Orientation: Person, Place, Non-Verbal/Aphasic, Time, Situation Functional [place] Measure 0=Not Assessed/NA 4=Minimal Assistance 1=Total Assistance 5=Supervision or Setup 2=Maximal Assistance 6=Modified [place] 3=Moderate Assistance 7=Complete [place] ADL-Treatment OT/PT co-treated due to pt's need for skilled intervention and decreased activity tolerance. Pt assists initiating roll toward R side in bed, dependent for rolling L. Landen lift for transfer to shower chair. After verbal cues to assist with own bathing, pt able to bathe upper body, alicia area and LE's using long handle sponge. Pt was able to rinse with hand held shower and used towel to dry after cues for upper body and alicia area. Pt declined oral care, LORENZANA explained about oral hygiene and need for it. Pt brushed hair after set up. Dependent with care after bowel movement. Pt assisted after verbal cues to doff and don shirt, mod A. Max A for lower body dressing, is lifting L foot and rolling toward R side to assist with lower body dressing. After therapy, pt going to modified barium swallow testing. All needs met. Functional [place] Measure 0=Not Assessed/NA 4=Minimal Assistance 1=Total Assistance 5=Supervision or Setup 2=Maximal Assistance 6=Modified [place] 3=Moderate Assistance 7=Complete IndependenceIRFPAI Quality Coding Scale 6 Independent with activity with or without an assistive device 5 Patient requires set up or clean up by helper. Patient completes activity by themselves 4 Supervision or touching assist (CGA). [place] provide cues , steadying assist 3 The helper provides less than half the effort to complete the activity 2 The helper provides more than half the effort to complete the activity 1 Dependent. The helper does all the effort to complete an activity 7 Patient refused to complete or attempt activity 9 The patient did not perform the activity before the current illness or injury 88 Not attempted due to Medical conditions or safety concerns Bathing (FIM): 3 Bathing Location: R Arm, L Upper Leg, R Upper Leg, Chest, Abdomen, Perineal Area Shower/Bathe Self (QC): 2 Upper Body (FIM): 3 Upper Body Dressing (QC): 3 Lower Body Dressing (FIM): 2 Lower Body Dressing (QC): 2 On/Off Footwear (QC): 1 Toileting (FIM): 1 Toileting Hygiene (QC): 1 Transfers (B, C, W/C) (FIM): 1 Shower Transfer(FIM): 1 OT Short Term Goals Short Term Goals Time Frame: Oct 22, 2017 Eating(FIM): 1 Grooming(FIM): 2 Bathing(FIM): 2 Upper Body Dressing(FIM): 2 Lower Body Dressing(FIM): 2 Toileting(FIM): 2 Transfers (B,C,W/C) (FIM): 2 Toilet/Commode Transfer(FIM): 2 Additional Short Term Goals: 1-Demonstrate ADL Tasks, 2-Verbalize Understanding , 3-ImproveStrength/[place] 1=Demonstrate adherence to instructed precautions during ADL tasks. 2=Patient will verbalize/demonstrate understanding of assistive devices/ modifications for ADL. 3=Patient will improve strength/tolerance for activity to enable patient to perform ADL's. OT Snf Goals Snf Goals Time Frame: Nov 05, 2017 Eating (FIM): 1 Groomin Oral Hygiene (QC): 3 Bathing(FIM): 3 Shower/Bathe Self (QC): 3 Upper Body Dressing(FIM): 3 Upper Body Dressing (QC): 3 Lower Body Dressing(FIM): 3 Lower Body Dressing (QC): 3 On/Off Footwear (QC): 3 Toileting(FIM): 3 Toileting Hygiene (QC): 3 Transfers (B,C,W/C) (FIM): 3 Toilet/Commode Transfer(FIM): 3 Toilet/Commode Transfer (QC): 3 Shower Transfer(FIM): 3 Comprehension(FIM): 2 Expression (FIM): 2 Social Interaction(FIM): 3 Problem Solving(FIM): 2 Memory(FIM): 2 Additional Goals: 1-Demonstrate ADL Tasks, 2-Verbalize Understanding, 3- ImproveStrength/[place] 1=Demonstrate adherence to instructed precautions during ADL tasks. 2=Patient will verbalize/demonstrate understanding of assistive devices/ modifications for ADL. 3=Patient will improve strength/tolerance for activity to enable patient to perform ADL's. OT Education/Plan Discharge Recommendations Plan/Recommendations: Continue POC Treatment Plan/Plan of Care Patient would benefit from OT for education, treatment and training to promote independence in ADL's, mobility, safety and/or upper extremity function for ADL' s. Plan of Care: ADL Retraining, Functional Mobility, UE Funct Exercise/Act Treatment Duration: Nov 05, 2017 Frequency: At least 5 of 7 days/Wk (IRF) Estimated Hrs Per Day: 1.5 hours per day Agreement: Yes Rehab Potential: Guarded Time/GCodes Start Time: 08:00 Stop Time: 09:00 Total Time Billed (hr/min): 60 Billed Treatment Time 1 visit-ADL 4 (60 min) co-treat with PT 60 min NGUYEN FREEDMAN Oct 16, 2017 10:17
[2017-10-16] MEDS ORDERED: aCETylcysteine 20% (MUCOMYST) 30ML SOLN VIAL INH PRN (13:00)
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
[2017-10-16 17:28] VITALS: BP 118/70
[2017-10-16] MEDS: traZODone 50 MG (DESYREL) TAB PO SCH (21:37)
[2017-10-16] MEDS: ATORVASTATIN 40 MG (LIPITOR) TABLET GT SCH (21:37)
[2017-10-17 05:54] VITALS: BP 134/76
[2017-10-17] MEDS: RT-ALBUTEROL/IPRATROPIUM 3 ML (DUONEB) VIAL INH SCH ×4 (06:58→20:45)
[2017-10-17] MEDS: BETHANECHOL 25 MG (URECHOLINE) TAB GT SCH ×4 (06:59→21:13)
[2017-10-17] MEDS: RT-BUDESONIDE NEBS 0.5 MG/2ML (PULMICORT) AMP INH SCH (07:09)
--- NOTE | 2017-10-17 08:02 | Occupational Ther Daily Note ---
OT Current Status-Daily Note Subjective Pt alert, lying in bed. Pt agrees to therapy with yes. Mental Status/Objective Patient Orientation: Person, Non-Verbal/Aphasic Functional [place] Measure 0=Not Assessed/NA 4=Minimal Assistance 1=Total Assistance 5=Supervision or Setup 2=Maximal Assistance 6=Modified [place] 3=Moderate Assistance 7=Complete [place] ADL-Treatment OT/PT co-treated due to pt's need for skilled intervention and decreased activity tolerance. Pt assists initiating roll toward R side in bed, dependent for rolling L. PT worked on transfers, mobility and LE wt bearing. OT worked on ADLs, UE wt bearing and dynamic sitting. Pt was able to wash alicia area and face. Dependent for cleansing buttocks. Dependent for lower body dressing. Landen lift x2 to transfer into w/c. PT worked on transfer with assist x2 to and from therapy mat. Pt completed sitting balance and wt bearing tasks with minimal movement, assist x2. After therapy, pt sitting in recliner with call light in reach. All needs met in room. Nrsg present in room. Functional [place] Measure 0=Not Assessed/NA 4=Minimal Assistance 1=Total Assistance 5=Supervision or Setup 2=Maximal Assistance 6=Modified [place] 3=Moderate Assistance 7=Complete IndependenceIRFPAI Quality Coding Scale 6 Independent with activity with or without an assistive device 5 Patient requires set up or clean up by helper. Patient completes activity by themselves 4 Supervision or touching assist (CGA). [place] provide cues , steadying assist 3 The helper provides less than half the effort to complete the activity 2 The helper provides more than half the effort to complete the activity 1 Dependent. The helper does all the effort to complete an activity 7 Patient refused to complete or attempt activity 9 The patient did not perform the activity before the current illness or injury 88 Not attempted due to Medical conditions or safety concerns OT Short Term Goals Short Term Goals Time Frame: Oct 22, 2017 Eating(FIM): 1 Grooming(FIM): 2 Bathing(FIM): 2 Upper Body Dressing(FIM): 2 Lower Body Dressing(FIM): 2 Toileting(FIM): 2 Transfers (B,C,W/C) (FIM): 2 Toilet/Commode Transfer(FIM): 2 Additional Short Term Goals: 1-Demonstrate ADL Tasks, 2-Verbalize Understanding , 3-ImproveStrength/Zunilda 1=Demonstrate adherence to instructed precautions during ADL tasks. 2=Patient will verbalize/demonstrate understanding of assistive devices/ modifications for ADL. 3=Patient will improve strength/tolerance for activity to enable patient to perform ADL's. OT Detention Goals Supervisor [employer] Finishing Goals Time Frame: Nov 05, 2017 Eating (FIM): 1 Groomin Oral Hygiene (QC): 3 Bathing(FIM): 3 Shower/Bathe Self (QC): 3 Upper Body Dressing(FIM): 3 Upper Body Dressing (QC): 3 Lower Body Dressing(FIM): 3 Lower Body Dressing (QC): 3 On/Off Footwear (QC): 3 Toileting(FIM): 3 Toileting Hygiene (QC): 3 Transfers (B,C,W/C) (FIM): 3 Toilet/Commode Transfer(FIM): 3 Toilet/Commode Transfer (QC): 3 Shower Transfer(FIM): 3 Comprehension(FIM): 2 Expression (FIM): 2 Social Interaction(FIM): 3 Problem Solving(FIM): 2 Memory(FIM): 2 Additional Goals: 1-Demonstrate ADL Tasks, 2-Verbalize Understanding, 3- ImproveStrength/Zunilda 1=Demonstrate adherence to instructed precautions during ADL tasks. 2=Patient will verbalize/demonstrate understanding of assistive devices/ modifications for ADL. 3=Patient will improve strength/tolerance for activity to enable patient to perform ADL's. OT Education/Plan Discharge Recommendations Plan/Recommendations: Continue POC Treatment Plan/Plan of Care Patient would benefit from OT for education, treatment and training to promote independence in ADL's, mobility, safety and/or upper extremity function for ADL' s. Plan of Care: ADL Retraining, Functional Mobility, UE Funct Exercise/Act Treatment Duration: Nov 05, 2017 Frequency: At least 5 of 7 days/Wk (IRF) Estimated Hrs Per Day: 1.5 hours per day Agreement: Yes Rehab Potential: Guarded Time/GCodes Start Time: 08:00 Stop Time: 09:00 Total Time Billed (hr/min): 60 Billed Treatment Time 1 visit-FA 4 (60 min) cotreat with PT 60 min NGUYEN FREEDMAN Oct 17, 2017 08:02
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
[2017-10-17] MEDS: LEVETIRACETAM 500 MG/ 5 ML UDC ORAL SOLN (KEPPRA) GT SCH ×2 (08:38→21:13)
[2017-10-17] MEDS: ASPIRIN 325 MG (5 GR) TABLET GT SCH (08:38)
[2017-10-17] MEDS: meTOprolol TARTRATE 50 MG (LOPRESSOR) TAB GT SCH ×2 (08:39→21:16)
[2017-10-17] MEDS: FAMOTIDINE 20 MG (PEPCID) TABLET GT SCH ×2 (08:39→21:13)
[2017-10-17] MEDS: SENNA W/DOCUSATE (SENOKOT S) TABLET GT SCH ×2 (08:39→21:13)
[2017-10-17] MEDS: ALLOPURINOL 100 MG (ZYLOPRIM) TAB GT SCH ×3 (08:39→21:13)
--- NOTE | 2017-10-17 08:58 | Physical Therapy Daily Note ---
PT Daily Note-Current Subjective Patient in bed pre tx, agrees to PT, will be co-treating with OT for 60 min. Appearance Patient in recliner with legs elevated and on pillows, has nurse call, all needs met. Mental Status Patient Orientation: Person, Unable to Assess, Non-Verbal/Aphasic Transfers Functional [place] Measure 0=Not Assessed/NA 4=Minimal Assistance 1=Total Assistance 5=Supervision or Setup 2=Maximal Assistance 6=Modified [place] 3=Moderate Assistance 7=Complete IndependenceIRFPAI Quality Coding Scale 6 Independent with activity with or without an assistive device 5 Patient requires set up or clean up by helper. Patient completes activity by themselves 4 Supervision or touching assist (CGA). [place] provide cues , steadying assist 3 The helper provides less than half the effort to complete the activity 2 The helper provides more than half the effort to complete the activity 1 Dependent. The helper does all the effort to complete an activity 7 Patient refused to complete or attempt activity 9 The patient did not perform the activity before the current illness or injury 88 Not attempted due to Medical conditions or safety concerns Transfers (B, C, W/C) (FIM): 1 Scootin Rollin Supine to/from Sit: 1 Bed to/from Chair: 1 Patient rolls to the right side with max assist. Treatments Patient in bed pre tx, needs cleaned and dressed. He rolls several times to both sides to accomplish this. Patient then hoyered to wheelchair and taken to therapy gym. Patient dependent stand pivot transfer to therapy table and performed sitting balance activities with cones and limits of stability training , forward and back and side to side. Patient then dependent stand pivot back to wheelchair and then hoyered to recliner. Assessment Current Status: Poor Progress no change in mobility PT Short Term Goals Short Term Goals Time Frame: Oct 22, 2017 Transfers (B,C,W/C) (FIM): 2 Wheelchair (FIM): 2 PT Intermediate Goals Filter Tank Operator Goals PT Intermediate Goals Time Frame: Nov 05, 2017 Transfers (B,C,W/C) (FIM): 3 Sit to Lying (QC): 3 Lying-Sitting on Side/Bed(QC): 3 Sit to Stand (QC): 3 Rollin Roll Left to Right (QC): 3 Chair/Paz-ue-Mrult Xfer(QC): 3 Car Transfer (QC): 3 Does the Patient Walk: No and Walking Goal IS indicated Gait (FIM): 2 Gait distance (FIM): 1=up to 49 ft Distance: steps only Walk 10 feet (QC): 2 Walk 10ft-Uneven Surface(QC): 88 Walk 50ft with 2 Turns (QC): 88 Walk 150 ft (QC): 88 Gait Level of Assist: 2 Does the Pt use WC or Scooter?: Yes Wheelchair (FIM): 2 Wheelchair distance (FIM): 0=555-93 ft Distance: 50 ft Wheelchair Level of Assist: 4 Wheel 50 feet with 2 turns (QC: 4 Stairs (FIM): 1 1 Step (curb) (QC): 1 4 Steps (QC): 1 12 Steps (QC): 1 Picking up an Object (QC): 1 PT Plan Problem List Problem List: Activity Tolerance, Functional Strength, Safety, Balance, Gait, Transfer, Bed Mobility, ROM Treatment/Plan Treatment Plan: Continue Plan of Care Treatment Plan: Bed Mobility, Education, Functional Activity Zunilda, Functional Strength, Group Therapy, Gait, Safety, Therapeutic Exercise, Transfers Treatment Duration: Nov 05, 2017 Frequency: At least 5 of 7 days/Wk (IRF) Estimated Hrs Per Day: 1.5 hours per day Patient and/or Family Agrees t: Yes Safety Risks/Education Patient Education: Transfer Techniques, Correct Positioning, Safety Issues Teaching Recipient: Patient Teaching Methods: Demonstration, Discussion Response to Teaching: Reinforcement Needed Time/GCodes Time In: 0800 Time Out: 0900 Total Billed Treatment Time: 60 Total Billed Treatment 1 visit NM 25' FA 35' Co-treated with OT for 60 min. PT worked on rolling, transfers, sitting balance. OT worked on cleaning, dressing, UE positioning during sitting balance. ANA ALVAREZ PT Oct 17, 2017 08:58
--- NOTE | 2017-10-17 11:22 | Occupational Ther Daily Note ---
OT Current Status-Daily Note Subjective Pt alert, sitting in recliner. Pt agrees to therapy. Requests to go to bed. Mental Status/Objective Patient Orientation: Person, Non-Verbal/Aphasic Functional [place] Measure 0=Not Assessed/NA 4=Minimal Assistance 1=Total Assistance 5=Supervision or Setup 2=Maximal Assistance 6=Modified [place] 3=Moderate Assistance 7=Complete [place] Attachments: PEG Tube, Other-See Comments (trach) ADL-Treatment Landen transfer x2 assist. Pt able to hold onto R UE with L UE when instructed to. Pt able to wipe mouth and face when given tissue. Assisted with turning to R side to manipulate lower body clothing. Dependent with turning to L side, dependent to doff lower body clothing in supine. After therapy, pt lying in bed with call light/phone in reach. All needs met in room. Functional [place] Measure 0=Not Assessed/NA 4=Minimal Assistance 1=Total Assistance 5=Supervision or Setup 2=Maximal Assistance 6=Modified [place] 3=Moderate Assistance 7=Complete IndependenceIRFPAI Quality Coding Scale 6 Independent with activity with or without an assistive device 5 Patient requires set up or clean up by helper. Patient completes activity by themselves 4 Supervision or touching assist (CGA). [place] provide cues , steadying assist 3 The helper provides less than half the effort to complete the activity 2 The helper provides more than half the effort to complete the activity 1 Dependent. The helper does all the effort to complete an activity 7 Patient refused to complete or attempt activity 9 The patient did not perform the activity before the current illness or injury 88 Not attempted due to Medical conditions or safety concerns OT Short Term Goals Short Term Goals Time Frame: Oct 22, 2017 Eating(FIM): 1 Grooming(FIM): 2 Bathing(FIM): 2 Upper Body Dressing(FIM): 2 Lower Body Dressing(FIM): 2 Toileting(FIM): 2 Transfers (B,C,W/C) (FIM): 2 Toilet/Commode Transfer(FIM): 2 Additional Short Term Goals: 1-Demonstrate ADL Tasks, 2-Verbalize Understanding , 3-ImproveStrength/Zunilda 1=Demonstrate adherence to instructed precautions during ADL tasks. 2=Patient will verbalize/demonstrate understanding of assistive devices/ modifications for ADL. 3=Patient will improve strength/tolerance for activity to enable patient to perform ADL's. OT Usp Goals [employer] Information Clerk Goals Time Frame: Nov 05, 2017 Eating (FIM): 1 Groomin Oral Hygiene (QC): 3 Bathing(FIM): 3 Shower/Bathe Self (QC): 3 Upper Body Dressing(FIM): 3 Upper Body Dressing (QC): 3 Lower Body Dressing(FIM): 3 Lower Body Dressing (QC): 3 On/Off Footwear (QC): 3 Toileting(FIM): 3 Toileting Hygiene (QC): 3 Transfers (B,C,W/C) (FIM): 3 Toilet/Commode Transfer(FIM): 3 Toilet/Commode Transfer (QC): 3 Shower Transfer(FIM): 3 Comprehension(FIM): 2 Expression (FIM): 2 Social Interaction(FIM): 3 Problem Solving(FIM): 2 Memory(FIM): 2 Additional Goals: 1-Demonstrate ADL Tasks, 2-Verbalize Understanding, 3- ImproveStrength/Zunilda 1=Demonstrate adherence to instructed precautions during ADL tasks. 2=Patient will verbalize/demonstrate understanding of assistive devices/ modifications for ADL. 3=Patient will improve strength/tolerance for activity to enable patient to perform ADL's. OT Education/Plan Discharge Recommendations Plan/Recommendations: Continue POC Treatment Plan/Plan of Care Patient would benefit from OT for education, treatment and training to promote independence in ADL's, mobility, safety and/or upper extremity function for ADL' s. Plan of Care: ADL Retraining, Functional Mobility, UE Funct Exercise/Act Treatment Duration: Nov 05, 2017 Frequency: At least 5 of 7 days/Wk (IRF) Estimated Hrs Per Day: 1.5 hours per day Agreement: Yes Rehab Potential: Guarded Time/GCodes Start Time: 11:00 Stop Time: 11:30 Total Time Billed (hr/min): 30 Billed Treatment Time 1 visit-FA 1 (15 min) EX 1 (15 min) NGUYEN FREEDMAN Oct 17, 2017 11:22
--- NOTE | 2017-10-17 12:13 | Physical Therapy Daily Note ---
PT Daily Note-Current Subjective Pt. in bed with family member present, agrees to LE exercises. He denies pain. Transfers Functional [place] Measure 0=Not Assessed/NA 4=Minimal Assistance 1=Total Assistance 5=Supervision or Setup 2=Maximal Assistance 6=Modified [place] 3=Moderate Assistance 7=Complete IndependenceIRFPAI Quality Coding Scale 6 Independent with activity with or without an assistive device 5 Patient requires set up or clean up by helper. Patient completes activity by themselves 4 Supervision or touching assist (CGA). [place] provide cues , steadying assist 3 The helper provides less than half the effort to complete the activity 2 The helper provides more than half the effort to complete the activity 1 Dependent. The helper does all the effort to complete an activity 7 Patient refused to complete or attempt activity 9 The patient did not perform the activity before the current illness or injury 88 Not attempted due to Medical conditions or safety concerns Exercises Supine Ex: Ankle pumps, Quad Set, Knee to chest, Short Arc Quads, Straight leg raise, Hip abd/add, Bicep Curls Supine Reps: 15 Treatments upper and lower extremity exercises: AAROM on L, PROM on R x 15 each, all planes in supine position Assessment Current Status: Fair Progress Pt. needs several cues to assist with exercises, no active movement noted on R upper and lower extremity. He needs mod A with exercises on L LE. Pt. positioned in bed post session, pillows under LE's to float heels, all needs met. PT Short Term Goals Short Term Goals Time Frame: Oct 22, 2017 Transfers (B,C,W/C) (FIM): 2 Wheelchair (FIM): 2 PT Rag Shredder Goals Group Home Goals PT Rag Shredder Goals Time Frame: Nov 05, 2017 Transfers (B,C,W/C) (FIM): 3 Sit to Lying (QC): 3 Lying-Sitting on Side/Bed(QC): 3 Sit to Stand (QC): 3 Rollin Roll Left to Right (QC): 3 Chair/[place] Xfer(QC): 3 Car Transfer (QC): 3 Does the Patient Walk: No and Walking Goal IS indicated Gait (FIM): 2 Gait distance (FIM): 1=up to 49 ft Distance: steps only Walk 10 feet (QC): 2 Walk 10ft-Uneven Surface(QC): 88 Walk 50ft with 2 Turns (QC): 88 Walk 150 ft (QC): 88 Gait Level of Assist: 2 Does the Pt use WC or Scooter?: Yes Wheelchair (FIM): 2 Wheelchair distance (FIM): 5=275-47 ft Distance: 50 ft Wheelchair Level of Assist: 4 Wheel 50 feet with 2 turns (QC: 4 Stairs (FIM): 1 1 Step (curb) (QC): 1 4 Steps (QC): 1 12 Steps (QC): 1 Picking up an Object (QC): 1 PT Plan Treatment/Plan Treatment Plan: Continue Plan of Care Treatment Plan: Bed Mobility, Education, Functional Activity Zunilda, Functional Strength, Group Therapy, Gait, Safety, Therapeutic Exercise, Transfers Treatment Duration: Nov 05, 2017 Frequency: At least 5 of 7 days/Wk (IRF) Estimated Hrs Per Day: 1.5 hours per day Patient and/or Family Agrees t: Yes Time/GCodes Time In: 1135 Time Out: 1205 Total Billed Treatment Time: 30 Total Billed Treatment 1, Ex 30' BELTRAN WORKMAN PT Oct 17, 2017 12:13
[2017-10-17 18:00] VITALS: BP 124/68
[2017-10-17] MEDS: traZODone 50 MG (DESYREL) TAB PO SCH (21:13)
[2017-10-17] MEDS: ATORVASTATIN 40 MG (LIPITOR) TABLET GT SCH (21:13)
[2017-10-18 06:00] VITALS: BP 128/73
[2017-10-18] MEDS: RT-BUDESONIDE NEBS 0.5 MG/2ML (PULMICORT) AMP INH SCH ×3 (06:24→18:28)
[2017-10-18] MEDS: RT-ALBUTEROL/IPRATROPIUM 3 ML (DUONEB) VIAL INH SCH ×4 (06:24→18:28)
[2017-10-18] MEDS: BETHANECHOL 25 MG (URECHOLINE) TAB GT SCH ×4 (06:43→20:08)
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
[2017-10-18] MEDS: LEVETIRACETAM 500 MG/ 5 ML UDC ORAL SOLN (KEPPRA) GT SCH ×2 (08:38→20:07)
[2017-10-18] MEDS: ASPIRIN 325 MG (5 GR) TABLET GT SCH (08:39)
[2017-10-18] MEDS: meTOprolol TARTRATE 50 MG (LOPRESSOR) TAB GT SCH ×2 (08:39→20:07)
[2017-10-18] MEDS: SENNA W/DOCUSATE (SENOKOT S) TABLET GT SCH ×2 (08:39→20:08)
[2017-10-18] MEDS: FAMOTIDINE 20 MG (PEPCID) TABLET GT SCH ×2 (08:39→20:08)
[2017-10-18] MEDS: ALLOPURINOL 100 MG (ZYLOPRIM) TAB GT SCH ×3 (08:39→20:58)
--- NOTE | 2017-10-18 09:37 | Occupational Ther Daily Note ---
OT Current Status-Daily Note Subjective Pt alert, lying in bed. Agrees to therapy. Mental Status/Objective Patient Orientation: Person, Non-Verbal/Aphasic Functional [place] Measure 0=Not Assessed/NA 4=Minimal Assistance 1=Total Assistance 5=Supervision or Setup 2=Maximal Assistance 6=Modified [place] 3=Moderate Assistance 7=Complete [place] Attachments: PEG Tube, Other-See Comments (trach) ADL-Treatment OT/PT co-treated due to pt's need for skilled intervention and decreased activity tolerance. Pt assists initiating roll toward R side in bed, dependent for rolling L. Landen lift for transfer to shower chair. After verbal cues to assist with own bathing, pt able to bathe upper body, alicia area and LE's using long handle sponge. Pt was able to rinse with hand held shower and used towel to dry after cues for upper body and alicia area. Dependent with care after bowel movement. Pt assisted after verbal cues to doff and don shirt, mod A. Max A for lower body dressing, is lifting L foot and rolling toward R side to assist with lower body dressing. Functional [place] Measure 0=Not Assessed/NA 4=Minimal Assistance 1=Total Assistance 5=Supervision or Setup 2=Maximal Assistance 6=Modified [place] 3=Moderate Assistance 7=Complete IndependenceIRFPAI Quality Coding Scale 6 Independent with activity with or without an assistive device 5 Patient requires set up or clean up by helper. Patient completes activity by themselves 4 Supervision or touching assist (CGA). [place] provide cues , steadying assist 3 The helper provides less than half the effort to complete the activity 2 The helper provides more than half the effort to complete the activity 1 Dependent. The helper does all the effort to complete an activity 7 Patient refused to complete or attempt activity 9 The patient did not perform the activity before the current illness or injury 88 Not attempted due to Medical conditions or safety concerns Bathing (FIM): 3 (Using long handle sponge, shower chair and hand held shower pt able to complete bathing and rinsing with mod A. Pt requires assist to dry lower body. Verbal cues and being handed items to initiate bathing.) Bathing Location: L Upper Leg, R Upper Leg, L Lower Leg (including foot), R Lower Leg (including foot), Chest, Abdomen, Perineal Area Shower/Bathe Self (QC): 3 Upper Body (FIM): 3 (Assist needed to thread UE's through sleeves then is able to lift over head. Assist to pull down in back.) Upper Body Dressing (QC): 3 Lower Body Dressing (FIM): 2 Lower Body Dressing (QC): 2 Toileting (FIM): 1 Toileting Hygiene (QC): 1 Transfers (B, C, W/C) (FIM): 1 Toilet/Commode Transfer (FIM): 1 Toilet Transfer (QC): 1 Shower Transfer(FIM): 1 Other Treatment PROM to R UE completed. After therapy, pt sitting in recliner with call light/ phone in reach. All needs met in room. OT Short Term Goals Short Term Goals Time Frame: Oct 22, 2017 Eating(FIM): 1 Grooming(FIM): 2 Bathing(FIM): 2 Upper Body Dressing(FIM): 2 Lower Body Dressing(FIM): 2 Toileting(FIM): 2 Transfers (B,C,W/C) (FIM): 2 Toilet/Commode Transfer(FIM): 2 Additional Short Term Goals: 1-Demonstrate ADL Tasks, 2-Verbalize Understanding , 3-ImproveStrength/Zunilda 1=Demonstrate adherence to instructed precautions during ADL tasks. 2=Patient will verbalize/demonstrate understanding of assistive devices/ modifications for ADL. 3=Patient will improve strength/tolerance for activity to enable patient to perform ADL's. OT Principal Architect Goals Principal Architect Goals Time Frame: Nov 05, 2017 Eating (FIM): 1 Groomin Oral Hygiene (QC): 3 Bathing(FIM): 3 Shower/Bathe Self (QC): 3 Upper Body Dressing(FIM): 3 Upper Body Dressing (QC): 3 Lower Body Dressing(FIM): 3 Lower Body Dressing (QC): 3 On/Off Footwear (QC): 3 Toileting(FIM): 3 Toileting Hygiene (QC): 3 Transfers (B,C,W/C) (FIM): 3 Toilet/Commode Transfer(FIM): 3 Toilet/Commode Transfer (QC): 3 Shower Transfer(FIM): 3 Comprehension(FIM): 2 Expression (FIM): 2 Social Interaction(FIM): 3 Problem Solving(FIM): 2 Memory(FIM): 2 Additional Goals: 1-Demonstrate ADL Tasks, 2-Verbalize Understanding, 3- ImproveStrength/Zunilda 1=Demonstrate adherence to instructed precautions during ADL tasks. 2=Patient will verbalize/demonstrate understanding of assistive devices/ modifications for ADL. 3=Patient will improve strength/tolerance for activity to enable patient to perform ADL's. OT Education/Plan Discharge Recommendations Plan/Recommendations: Continue POC Treatment Plan/Plan of Care Patient would benefit from OT for education, treatment and training to promote independence in ADL's, mobility, safety and/or upper extremity function for ADL' s. Plan of Care: ADL Retraining, Functional Mobility, UE Funct Exercise/Act Treatment Duration: Nov 05, 2017 Frequency: At least 5 of 7 days/Wk (IRF) Estimated Hrs Per Day: 1.5 hours per day Agreement: Yes Rehab Potential: Guarded Time/GCodes Start Time: 08:00 Stop Time: 09:15 Total Time Billed (hr/min): 75 Billed Treatment Time 1 visit-ADL 4 (60 min) FA 1 (15 min) co-treat 75 min with PT NGUYEN FREEDMAN Oct 18, 2017 09:37
--- NOTE | 2017-10-18 09:38 | Physical Therapy Daily Note ---
PT Daily Note-Current Subjective Patient in bed pre tx, agrees to PT, will be co-treating with OT for 75 min. Appearance Patient in recliner post tx with legs elevated and pillow heel lift, has nurse call and tray. Mental Status Patient Orientation: Person, Unable to Assess, Non-Verbal/Aphasic Attachments: PEG Tube Transfers Functional [place] Measure 0=Not Assessed/NA 4=Minimal Assistance 1=Total Assistance 5=Supervision or Setup 2=Maximal Assistance 6=Modified [place] 3=Moderate Assistance 7=Complete IndependenceIRFPAI Quality Coding Scale 6 Independent with activity with or without an assistive device 5 Patient requires set up or clean up by helper. Patient completes activity by themselves 4 Supervision or touching assist (CGA). [place] provide cues , steadying assist 3 The helper provides less than half the effort to complete the activity 2 The helper provides more than half the effort to complete the activity 1 Dependent. The helper does all the effort to complete an activity 7 Patient refused to complete or attempt activity 9 The patient did not perform the activity before the current illness or injury 88 Not attempted due to Medical conditions or safety concerns Transfers (B, C, W/C) (FIM): 1 Scootin Rollin Bed to/from Chair: 1 Patient can roll to the right side with max assist, brayan for transfers. Treatments Patient was rolled several times each side for cleaning and getting brief off and sling under him for the brayan over to the shower chair. Patient was taken to the shower, bathed, and hoyered back to bed. He was rolled again (and participated every time he rolled to the right side) several times for getting sling out and for dressing. He was then hoyered to the recliner. Passive ROM was performed on the right LE and LLE did LAQ x20, AP x20. Assessment Current Status: Poor Progress No change in mobility. PT Short Term Goals Short Term Goals Time Frame: Oct 22, 2017 Transfers (B,C,W/C) (FIM): 2 Wheelchair (FIM): 2 PT Light Armored Vehicle Officer Goals [facility] Goals PT Light Armored Vehicle Officer Goals Time Frame: Nov 05, 2017 Transfers (B,C,W/C) (FIM): 3 Sit to Lying (QC): 3 Lying-Sitting on Side/Bed(QC): 3 Sit to Stand (QC): 3 Rollin Roll Left to Right (QC): 3 Chair/Pbm-cd-Qnpoc Xfer(QC): 3 Car Transfer (QC): 3 Does the Patient Walk: No and Walking Goal IS indicated Gait (FIM): 2 Gait distance (FIM): 1=up to 49 ft Distance: steps only Walk 10 feet (QC): 2 Walk 10ft-Uneven Surface(QC): 88 Walk 50ft with 2 Turns (QC): 88 Walk 150 ft (QC): 88 Gait Level of Assist: 2 Does the Pt use WC or Scooter?: Yes Wheelchair (FIM): 2 Wheelchair distance (FIM): 2=553-12 ft Distance: 50 ft Wheelchair Level of Assist: 4 Wheel 50 feet with 2 turns (QC: 4 Stairs (FIM): 1 1 Step (curb) (QC): 1 4 Steps (QC): 1 12 Steps (QC): 1 Picking up an Object (QC): 1 PT Plan Problem List Problem List: Activity Tolerance, Functional Strength, Safety, Balance, Gait, Transfer, Bed Mobility, ROM Treatment/Plan Treatment Plan: Continue Plan of Care Treatment Plan: Bed Mobility, Education, Functional Activity Zun[place], Functional Strength, Group Therapy, Gait, Safety, Therapeutic Exercise, Transfers Treatment Duration: Nov 05, 2017 Frequency: At least 5 of 7 days/Wk (IRF) Estimated Hrs Per Day: 1.5 hours per day Patient and/or Family Agrees t: Yes Safety Risks/Education Patient Education: Transfer Techniques, Correct Positioning, Safety Issues Teaching Recipient: Patient Teaching Methods: Demonstration, Discussion Response to Teaching: Reinforcement Needed Time/GCodes Time In: 0800 Time Out: 0915 Total Billed Treatment Time: 75 Total Billed Treatment 1 visit FA 60' EX 15' ANA ALVAREZ PT Oct 18, 2017 09:38
--- NOTE | 2017-10-18 13:33 | Speech Therapy Daily Note ---
Speech Daily Progress Note Subjective Date Seen by Provider: Oct 18, 2017 Time Seen by Provider: 12:45 The patient was seated upright in his bed upon entrance. The patient greeted the clinician with eye gaze and was agreeable to participation in the dysphagia treatment session. The patient's was present who denied any presence of signs/symptoms of aspiration with PO intake. Objective PO Bolus Trials: Honey-thickened liquids and puree consistencies were dyed blue to aid in the visualization of possible aspiration from the tracheostomy site if it occurs. The patient was provided five trials of honey-thick liquid via half teaspoon and five teaspoons of puree consistency (as he recently completed lunch). Overt signs/symptoms of aspiration were not visualized throughout the session. Dysphagia Exercises: Dysphagia exercises were continued on this date with fair accuracy. The patient completed ten repetitions of each exercise (base of tongue , pharyngeal contraction, laryngeal elevation). Assessment Assessment Current Status: Fair Progress Treatment Plan Continue Plan of Care Communication Comprehension: 2 Expression: 1 Social Cognition Social Interaction: 1 Problem Solvin Memory: 1 Speech Short Term Goals Short Term Goals Short Term Goals 1. The patient will display 75% accuracy with oropharyngeal swallowing exercises with moderate clinician verbal cueing. 2. The patient will tolerate 10/10 trials of honey-thick liquid without signs/ symptoms of aspiration or laryngeal penetration. 3. The patient will repeat functional phrases with 75% accuracy and mild clinician verbal cueing. 4. The patient will demonstrate adductor fold exercises with 75% accuracy and moderate clinician verbal cueing. Time Frame-STG: Three Weeks Speech Stem Crusher Goals Care Home Goals 1. The patient will tolerate the least restrictive consistency (trials and diet ) without signs/symptoms of aspiration or laryngeal penetration. 2. The patient will display improved cognition linguistic function for increased function and safety. Time Frame: Four Weeks Comprehension: 2 Expression: 2 Social Interaction: 3 Problem Solvin Memory: 2 Speech-Plan Treatment Plan Speech Therapy Treatment Plan: Continue Plan of Care Continue skilled speech pathology to target improved swallowing safety and PO intake. Treatment Duration: Nov 02, 2017 Frequency: 4 times per week Estimated Hrs Per Day: .5 hour per day Rehab Potential: Guarded Safety Risks/Education Teaching Recipient: Patient, Significant Other Teaching Methods: Demonstration, Handout, Discussion Response to Teaching: Return Demonstration, Reinforcement Needed Education Topics Provided: Dysphagia Exercises Time Speech Therapy Time In: 12:45 Speech Therapy Time Out: 13:15 Total Billed Time: 30 Billed Treatment Time 1, THERESA RICHARD Oct 18, 2017 13:33
[2017-10-18 17:11] VITALS: BP 173/91
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
[2017-10-18] MEDS: ATORVASTATIN 40 MG (LIPITOR) TABLET GT SCH (20:07)
[2017-10-18] MEDS: traZODone 50 MG (DESYREL) TAB PO SCH (20:07)
[2017-10-19] MEDS: BETHANECHOL 25 MG (URECHOLINE) TAB GT SCH ×4 (05:51→20:59)
[2017-10-19 06:38] VITALS: BP 130/70
[2017-10-19] MEDS: RT-ALBUTEROL/IPRATROPIUM 3 ML (DUONEB) VIAL INH SCH ×4 (07:18→18:34)
[2017-10-19] MEDS: RT-BUDESONIDE NEBS 0.5 MG/2ML (PULMICORT) AMP INH SCH ×2 (07:18→18:34)
[2017-10-19 07:41] VITALS: BP 146/79
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
[2017-10-19] MEDS: LEVETIRACETAM 500 MG/ 5 ML UDC ORAL SOLN (KEPPRA) GT SCH ×2 (08:24→20:59)
[2017-10-19] MEDS: SENNA W/DOCUSATE (SENOKOT S) TABLET GT SCH ×2 (08:24→20:59)
[2017-10-19] MEDS: ASPIRIN 325 MG (5 GR) TABLET GT SCH (08:24)
[2017-10-19] MEDS: FAMOTIDINE 20 MG (PEPCID) TABLET GT SCH ×2 (08:25→20:59)
[2017-10-19] MEDS: ALLOPURINOL 100 MG (ZYLOPRIM) TAB GT SCH ×3 (08:25→20:59)
[2017-10-19] MEDS: meTOprolol TARTRATE 50 MG (LOPRESSOR) TAB GT SCH ×2 (08:25→20:59)
--- NOTE | 2017-10-19 09:21 | Physical Therapy Daily Note ---
PT Daily Note-Current Subjective Patient in bed pre tx, agrees to PT, will be co-treating with OT for 60 min Appearance Patient in recliner post tx with nurse call, felix, all needs met, legs elevated and pillow heel lift, right arm elevated on pillows Mental Status Patient Orientation: Person, Unable to Assess, Non-Verbal/Aphasic Attachments: PEG Tube Transfers Functional [place] Measure 0=Not Assessed/NA 4=Minimal Assistance 1=Total Assistance 5=Supervision or Setup 2=Maximal Assistance 6=Modified [place] 3=Moderate Assistance 7=Complete IndependenceIRFPAI Quality Coding Scale 6 Independent with activity with or without an assistive device 5 Patient requires set up or clean up by helper. Patient completes activity by themselves 4 Supervision or touching assist (CGA). [place] provide cues , steadying assist 3 The helper provides less than half the effort to complete the activity 2 The helper provides more than half the effort to complete the activity 1 Dependent. The helper does all the effort to complete an activity 7 Patient refused to complete or attempt activity 9 The patient did not perform the activity before the current illness or injury 88 Not attempted due to Medical conditions or safety concerns Transfers (B, C, W/C) (FIM): 1 Scootin Rollin Bed to/from Chair: 1 Treatments Patient rolled several times for cleaning and dressing and to get sling under him. Hoyered over to wheelchair and taken to therapy gym. Placed in standing frame and performed UE ROM with OT while in standing frame. Put back into wheelchair and placed into recliner via brayan. PT worked on bed mobility, transfers, trunk positioning in standing frame. OT worked on UE in standing frame, dressing, cleaning, transfers Assessment Current Status: Poor Progress no change in mobility PT Short Term Goals Short Term Goals Time Frame: Oct 22, 2017 Transfers (B,C,W/C) (FIM): 2 Wheelchair (FIM): 2 PT [facility] Goals [facility] Goals PT Fishing Boat Mate Goals Time Frame: Nov 05, 2017 Transfers (B,C,W/C) (FIM): 3 Sit to Lying (QC): 3 Lying-Sitting on Side/Bed(QC): 3 Sit to Stand (QC): 3 Rollin Roll Left to Right (QC): 3 Chair/Gva-at-Nfdvl Xfer(QC): 3 Car Transfer (QC): 3 Does the Patient Walk: No and Walking Goal IS indicated Gait (FIM): 2 Gait distance (FIM): 1=up to 49 ft Distance: steps only Walk 10 feet (QC): 2 Walk 10ft-Uneven Surface(QC): 88 Walk 50ft with 2 Turns (QC): 88 Walk 150 ft (QC): 88 Gait Level of Assist: 2 Does the Pt use WC or Scooter?: Yes Wheelchair (FIM): 2 Wheelchair distance (FIM): 0=450-65 ft Distance: 50 ft Wheelchair Level of Assist: 4 Wheel 50 feet with 2 turns (QC: 4 Stairs (FIM): 1 1 Step (curb) (QC): 1 4 Steps (QC): 1 12 Steps (QC): 1 Picking up an Object (QC): 1 PT Plan Problem List Problem List: Activity Tolerance, Functional Strength, Safety, Balance, Gait, Transfer, Bed Mobility, ROM Treatment/Plan Treatment Plan: Continue Plan of Care Treatment Plan: Bed Mobility, Education, Functional Activity [place], Functional Strength, Group Therapy, Gait, Safety, Therapeutic Exercise, Transfers Treatment Duration: Nov 05, 2017 Frequency: At least 5 of 7 days/Wk (IRF) Estimated Hrs Per Day: 1.5 hours per day Patient and/or Family Agrees t: Yes Safety Risks/Education Patient Education: Transfer Techniques, Correct Positioning, Safety Issues Teaching Recipient: Patient Teaching Methods: Demonstration, Discussion Response to Teaching: Reinforcement Needed Time/GCodes Time In: 0800 Time Out: 0900 Total Billed Treatment Time: 60 Total Billed Treatment 1 visit FA ANA LOPEZ PT Oct 19, 2017 09:21
--- NOTE | 2017-10-19 09:37 | Speech Therapy Daily Note ---
Speech Daily Progress Note Subjective Date Seen by Provider: Oct 19, 2017 Time Seen by Provider: 09:00 The patient was seated upright in his chair/recliner upon entrance. The patient greeted the clinician with eye gaze and was agreeable to participation in the dysphagia treatment session. The patient's was present who denied any presence of signs/symptoms of aspiration with PO intake. Objective PO Bolus Trials: The patient's breakfast was present at bedside. Breakfast items included pureed eggs, pureed ham, nectar thick cranberry juice, and nectar thick milk. The patient consumed five bites of eggs, two bites of ham, and four sips of cranberry juice. The patient refused additional trials. Overt signs/symptoms of aspiration were not visualized throughout the breakfast. Thin liquid trials via teaspoon (water) were attempted. The patient did not demonstrate coughing or throat clearing, however, did display an overtly wet vocal quality. Dysphagia Exercises: Dysphagia exercises were continued on this date with fair accuracy. The patient completed ten repetitions of each exercise (base of tongue , pharyngeal contraction, laryngeal elevation). Assessment Assessment Current Status: Fair Progress Treatment Plan Continue Plan of Care Communication Comprehension: 2 Expression: 1 Social Cognition Social Interaction: 1 Problem Solvin Memory: 1 Speech Short Term Goals Short Term Goals Short Term Goals 1. The patient will display 75% accuracy with oropharyngeal swallowing exercises with moderate clinician verbal cueing. 2. The patient will tolerate 10/10 trials of honey-thick liquid without signs/ symptoms of aspiration or laryngeal penetration. 3. The patient will repeat functional phrases with 75% accuracy and mild clinician verbal cueing. 4. The patient will demonstrate adductor fold exercises with 75% accuracy and moderate clinician verbal cueing. Time Frame-STG: Three Weeks Speech [facility] Goals [facility] Goals 1. The patient will tolerate the least restrictive consistency (trials and diet ) without signs/symptoms of aspiration or laryngeal penetration. 2. The patient will display improved cognition linguistic function for increased function and safety. Time Frame: Four Weeks Comprehension: 2 Expression: 2 Social Interaction: 3 Problem Solvin Memory: 2 Speech-Plan Treatment Plan Speech Therapy Treatment Plan: Continue Plan of Care Continue skilled speech pathology to work towards safe PO intake. Treatment Duration: Nov 02, 2017 Frequency: 4 times per week Estimated Hrs Per Day: .5 hour per day Rehab Potential: Guarded Safety Risks/Education Teaching Recipient: Patient Teaching Methods: Demonstration, Handout, Discussion Response to Teaching: Reinforcement Needed Education Topics Provided: Dysphagia Exercises Time Speech Therapy Time In: 09:00 Speech Therapy Time Out: 09:30 Total Billed Time: 30 Billed Treatment Time 1, THERESA RICHARD Oct 19, 2017 09:37
--- NOTE | 2017-10-19 10:23 | Occupational Ther Daily Note ---
OT Current Status-Daily Note Subjective Pt alert, lying in bed. Pt agrees to therapy. Mental Status/Objective Patient Orientation: Person, Place, Non-Verbal/Aphasic Functional [place] Measure 0=Not Assessed/NA 4=Minimal Assistance 1=Total Assistance 5=Supervision or Setup 2=Maximal Assistance 6=Modified [place] 3=Moderate Assistance 7=Complete [place] Attachments: PEG Tube, Other-See Comments (trach) ADL-Treatment OT/PT co-treated due to pt's need for skilled intervention and decreased activity tolerance. Pt assists initiating roll toward R side in bed, dependent for rolling L. PT worked on transfers, mobility and LE wt bearing. OT worked on ADLs, UE wt bearing and cognitive activities in standing. Pt was able to wash alicia area and face. Dependent for cleansing buttocks. Dependent for lower body dressing. Mod A for upper body dressing. Pt continues to require verbal cues to initiate functional movement with L UE. No movement with R UE. Landen lift x2 to transfer into w/c. Pt worked on standing with standing frame. After therapy, pt sitting in recliner with call light in reach. All needs met in room. Nrsg present in room. Functional [place] Measure 0=Not Assessed/NA 4=Minimal Assistance 1=Total Assistance 5=Supervision or Setup 2=Maximal Assistance 6=Modified [place] 3=Moderate Assistance 7=Complete IndependenceIRFPAI Quality Coding Scale 6 Independent with activity with or without an assistive device 5 Patient requires set up or clean up by helper. Patient completes activity by themselves 4 Supervision or touching assist (CGA). [place] provide cues , steadying assist 3 The helper provides less than half the effort to complete the activity 2 The helper provides more than half the effort to complete the activity 1 Dependent. The helper does all the effort to complete an activity 7 Patient refused to complete or attempt activity 9 The patient did not perform the activity before the current illness or injury 88 Not attempted due to Medical conditions or safety concerns Eating (FIM): 2 Eating (QC): 2 Upper Body (FIM): 3 Upper Body Dressing (QC): 3 Lower Body Dressing (FIM): 1 Lower Body Dressing (QC): 1 On/Off Footwear (QC): 1 Toileting (FIM): 1 Toileting Hygiene (QC): 1 Transfers (B, C, W/C) (FIM): 1 Toilet/Commode Transfer (FIM): 1 Toilet Transfer (QC): 1 OT Short Term Goals Short Term Goals Time Frame: Oct 22, 2017 Eating(FIM): 1 Grooming(FIM): 2 Bathing(FIM): 2 Upper Body Dressing(FIM): 2 Lower Body Dressing(FIM): 2 Toileting(FIM): 2 Transfers (B,C,W/C) (FIM): 2 Toilet/Commode Transfer(FIM): 2 Additional Short Term Goals: 1-Demonstrate ADL Tasks, 2-Verbalize Understanding , 3-ImproveStrength/Zunilda 1=Demonstrate adherence to instructed precautions during ADL tasks. 2=Patient will verbalize/demonstrate understanding of assistive devices/ modifications for ADL. 3=Patient will improve strength/tolerance for activity to enable patient to perform ADL's. OT Switchboard Wire Worker Helper Goals Long-Term Goals Time Frame: Nov 05, 2017 Eating (FIM): 1 Groomin Oral Hygiene (QC): 3 Bathing(FIM): 3 Shower/Bathe Self (QC): 3 Upper Body Dressing(FIM): 3 Upper Body Dressing (QC): 3 Lower Body Dressing(FIM): 3 Lower Body Dressing (QC): 3 On/Off Footwear (QC): 3 Toileting(FIM): 3 Toileting Hygiene (QC): 3 Transfers (B,C,W/C) (FIM): 3 Toilet/Commode Transfer(FIM): 3 Toilet/Commode Transfer (QC): 3 Shower Transfer(FIM): 3 Comprehension(FIM): 2 Expression (FIM): 2 Social Interaction(FIM): 3 Problem Solving(FIM): 2 Memory(FIM): 2 Additional Goals: 1-Demonstrate ADL Tasks, 2-Verbalize Understanding, 3- ImproveStrength/Zunilda 1=Demonstrate adherence to instructed precautions during ADL tasks. 2=Patient will verbalize/demonstrate understanding of assistive devices/ modifications for ADL. 3=Patient will improve strength/tolerance for activity to enable patient to perform ADL's. OT Education/Plan Discharge Recommendations Plan/Recommendations: Continue POC Treatment Plan/Plan of Care Patient would benefit from OT for education, treatment and training to promote independence in ADL's, mobility, safety and/or upper extremity function for ADL' s. Plan of Care: ADL Retraining, Functional Mobility, UE Funct Exercise/Act Treatment Duration: Nov 05, 2017 Frequency: At least 5 of 7 days/Wk (IRF) Estimated Hrs Per Day: 1.5 hours per day Agreement: Yes Rehab Potential: Guarded Time/GCodes Start Time: 07:45 Stop Time: 09:00 Total Time Billed (hr/min): 75 Billed Treatment Time 1 visit-ADL 2 (30 min) FA 3 (45 min) NGUYEN FREEDMAN Oct 19, 2017 10:23
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
--- NOTE | 2017-10-19 11:56 | Physical Therapy Daily Note ---
PT Daily Note-Current Subjective Patient in recliner pre tx, will perform bilateral LE PROM, no indications that patient has pain. Appearance Patient in recliner post tx with nurse call, legs elevated and heel elevated on pillows, has tray, all needs met. Mental Status Patient Orientation: Person, Unable to Assess, Non-Verbal/Aphasic Attachments: PEG Tube Transfers Functional [place] Measure 0=Not Assessed/NA 4=Minimal Assistance 1=Total Assistance 5=Supervision or Setup 2=Maximal Assistance 6=Modified [place] 3=Moderate Assistance 7=Complete IndependenceIRFPAI Quality Coding Scale 6 Independent with activity with or without an assistive device 5 Patient requires set up or clean up by helper. Patient completes activity by themselves 4 Supervision or touching assist (CGA). [place] provide cues , steadying assist 3 The helper provides less than half the effort to complete the activity 2 The helper provides more than half the effort to complete the activity 1 Dependent. The helper does all the effort to complete an activity 7 Patient refused to complete or attempt activity 9 The patient did not perform the activity before the current illness or injury 88 Not attempted due to Medical conditions or safety concerns Exercises bilateral lower extremity PROM in all planes, patient has tight hamstrings and a left knee contracture. Treatments PROM/stretching Assessment Current Status: Poor Progress PT Short Term Goals Short Term Goals Time Frame: Oct 22, 2017 Transfers (B,C,W/C) (FIM): 2 Wheelchair (FIM): 2 PT Racecourse Barrier Attendant Goals Retirement Goals PT Retirement Goals Time Frame: Nov 05, 2017 Transfers (B,C,W/C) (FIM): 3 Sit to Lying (QC): 3 Lying-Sitting on Side/Bed(QC): 3 Sit to Stand (QC): 3 Rollin Roll Left to Right (QC): 3 Chair/Ook-nr-Dvbpi Xfer(QC): 3 Car Transfer (QC): 3 Does the Patient Walk: No and Walking Goal IS indicated Gait (FIM): 2 Gait distance (FIM): 1=up to 49 ft Distance: steps only Walk 10 feet (QC): 2 Walk 10ft-Uneven Surface(QC): 88 Walk 50ft with 2 Turns (QC): 88 Walk 150 ft (QC): 88 Gait Level of Assist: 2 Does the Pt use WC or Scooter?: Yes Wheelchair (FIM): 2 Wheelchair distance (FIM): 6=652-70 ft Distance: 50 ft Wheelchair Level of Assist: 4 Wheel 50 feet with 2 turns (QC: 4 Stairs (FIM): 1 1 Step (curb) (QC): 1 4 Steps (QC): 1 12 Steps (QC): 1 Picking up an Object (QC): 1 PT Plan Problem List Problem List: Activity Tolerance, Functional Strength, Safety, Balance, Gait, Transfer, Bed Mobility, ROM Treatment/Plan Treatment Plan: Continue Plan of Care Treatment Plan: Bed Mobility, Education, Functional Activity Zunilda, Functional Strength, Group Therapy, Gait, Safety, Therapeutic Exercise, Transfers Treatment Duration: Nov 05, 2017 Frequency: At least 5 of 7 days/Wk (IRF) Estimated Hrs Per Day: 1.5 hours per day Patient and/or Family Agrees t: Yes Safety Risks/Education Patient Education: Correct Positioning, Safety Issues Teaching Recipient: Patient Teaching Methods: Demonstration, Discussion Response to Teaching: Reinforcement Needed Time/GCodes Time In: 1140 Time Out: 1155 Total Billed Treatment Time: 15 Total Billed Treatment 1 visit EX 15' ANA ALVAREZ PT Oct 19, 2017 11:56
[2017-10-19 17:49] VITALS: BP 153/81
[2017-10-19 17:55] VITALS: BP 143/80
[2017-10-19] MEDS: traZODone 50 MG (DESYREL) TAB PO SCH (20:59)
[2017-10-19] MEDS: ATORVASTATIN 40 MG (LIPITOR) TABLET GT SCH (20:59)
[2017-10-20] MEDS: BETHANECHOL 25 MG (URECHOLINE) TAB GT SCH ×4 (05:25→21:01)
[2017-10-20 05:36] VITALS: BP 159/79
[2017-10-20] MEDS: RT-ALBUTEROL/IPRATROPIUM 3 ML (DUONEB) VIAL INH SCH ×4 (08:06→18:35)
[2017-10-20] MEDS: RT-BUDESONIDE NEBS 0.5 MG/2ML (PULMICORT) AMP INH SCH ×2 (08:06→18:34)
[2017-10-20] MEDS: LEVETIRACETAM 500 MG/ 5 ML UDC ORAL SOLN (KEPPRA) GT SCH ×2 (08:13→21:00)
[2017-10-20] MEDS: SENNA W/DOCUSATE (SENOKOT S) TABLET GT SCH ×2 (08:13→21:00)
[2017-10-20] MEDS: ALLOPURINOL 100 MG (ZYLOPRIM) TAB GT SCH ×3 (08:14→21:01)
[2017-10-20] MEDS: ASPIRIN 325 MG (5 GR) TABLET GT SCH (08:14)
[2017-10-20] MEDS: FAMOTIDINE 20 MG (PEPCID) TABLET GT SCH ×2 (08:14→21:01)
[2017-10-20] MEDS: meTOprolol TARTRATE 50 MG (LOPRESSOR) TAB GT SCH ×2 (08:14→21:01)
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
--- NOTE | 2017-10-20 11:53 | Physical Therapy Daily Note ---
PT Daily Note-Current Subjective Pt agreeable. Pt says "whole R side" when asked if he hurts anywhere. Pt did indicate (R) UE PROM felt "good". Pt unable to rate pain. Pt agreeable to up in chair and indicated "yes" when asked if he was comfortable. Mental Status Patient Orientation: Person, [place] Transfers Functional [place] Measure 0=Not Assessed/NA 4=Minimal Assistance 1=Total Assistance 5=Supervision or Setup 2=Maximal Assistance 6=Modified [place] 3=Moderate Assistance 7=Complete IndependenceIRFPAI Quality Coding Scale 6 Independent with activity with or without an assistive device 5 Patient requires set up or clean up by helper. Patient completes activity by themselves 4 Supervision or touching assist (CGA). [place] provide cues , steadying assist 3 The helper provides less than half the effort to complete the activity 2 The helper provides more than half the effort to complete the activity 1 Dependent. The helper does all the effort to complete an activity 7 Patient refused to complete or attempt activity 9 The patient did not perform the activity before the current illness or injury 88 Not attempted due to Medical conditions or safety concerns Bed to chair transfer dependent, brayan lift used. Treatments Pt seen for PROM (R) UE and LE all directions, all joints x 20 each. AROM LAQ and hip flexion (L) LE x 20, forward reach (L) UE x 20. Manual rolling R<->L in bed for brayan lift placement. Pt trnsfr bed to chair, legs floating on pillow with pressure relief boots in place. (R) UE positioned on 2 pillows for comfort and to avoid swelling in hand. Pillow behind head, pt legs elevated and pt reclined somewhat to comfort. Assessment Current Status: Fair Progress Pt urvashi very well, agreeable throughout. Pt with call light and changing channels post therapy session. Pt needs met and indicated he was comfortable. PT Short Term Goals Short Term Goals Time Frame: Oct 22, 2017 Transfers (B,C,W/C) (FIM): 2 Wheelchair (FIM): 2 PT Retail Client Solutions Analyst Goals Retail Client Solutions Analyst Goals PT Retail Client Solutions Analyst Goals Time Frame: Nov 05, 2017 Transfers (B,C,W/C) (FIM): 3 Sit to Lying (QC): 3 Lying-Sitting on Side/Bed(QC): 3 Sit to Stand (QC): 3 Rollin Roll Left to Right (QC): 3 Chair/Uke-og-Qraij Xfer(QC): 3 Car Transfer (QC): 3 Does the Patient Walk: No and Walking Goal IS indicated Gait (FIM): 2 Gait distance (FIM): 1=up to 49 ft Distance: steps only Walk 10 feet (QC): 2 Walk 10ft-Uneven Surface(QC): 88 Walk 50ft with 2 Turns (QC): 88 Walk 150 ft (QC): 88 Gait Level of Assist: 2 Does the Pt use WC or Scooter?: Yes Wheelchair (FIM): 2 Wheelchair distance (FIM): 3=479-51 ft Distance: 50 ft Wheelchair Level of Assist: 4 Wheel 50 feet with 2 turns (QC: 4 Stairs (FIM): 1 1 Step (curb) (QC): 1 4 Steps (QC): 1 12 Steps (QC): 1 Picking up an Object (QC): 1 PT Plan Treatment/Plan Treatment Plan: Continue Plan of Care Treatment Plan: Bed Mobility, Education, Functional Activity Zunilda, Functional Strength, Group Therapy, Gait, Safety, Therapeutic Exercise, Transfers Treatment Duration: Nov 05, 2017 Frequency: At least 5 of 7 days/Wk (IRF) Estimated Hrs Per Day: 1.5 hours per day Patient and/or Family Agrees t: Yes Time/GCodes Time In: 930 Time Out: 1005 Total Billed Treatment Time: 35 Total Billed Treatment 1, Ex x 15min, FA x 20min CLARENCE MIRANDA CPTA Oct 20, 2017 11:53
[2017-10-20 15:58] VITALS: BP 151/78
[2017-10-20] MEDS: traZODone 50 MG (DESYREL) TAB PO SCH (21:01)
[2017-10-20] MEDS: POLYETHYLENE GLYCOL 17 GM (MIRALAX) PACK PO SCH (21:01)
[2017-10-20] MEDS: ATORVASTATIN 40 MG (LIPITOR) TABLET GT SCH (21:01)
[2017-10-21] MEDS: BETHANECHOL 25 MG (URECHOLINE) TAB GT SCH ×4 (05:02→20:01)
[2017-10-21 05:03] VITALS: BP 134/76
[2017-10-21] MEDS: RT-BUDESONIDE NEBS 0.5 MG/2ML (PULMICORT) AMP INH SCH ×2 (06:25→19:05)
[2017-10-21] MEDS: RT-ALBUTEROL/IPRATROPIUM 3 ML (DUONEB) VIAL INH SCH ×4 (06:25→19:01)
[2017-10-21] MEDS: meTOprolol TARTRATE 50 MG (LOPRESSOR) TAB GT SCH ×2 (09:54→20:01)
[2017-10-21] MEDS: LEVETIRACETAM 500 MG/ 5 ML UDC ORAL SOLN (KEPPRA) GT SCH ×2 (09:54→20:01)
[2017-10-21] MEDS: ASPIRIN 325 MG (5 GR) TABLET GT SCH (09:54)
[2017-10-21] MEDS: ALLOPURINOL 100 MG (ZYLOPRIM) TAB GT SCH ×3 (09:54→20:01)
[2017-10-21] MEDS: SENNA W/DOCUSATE (SENOKOT S) TABLET GT SCH ×2 (09:54→20:01)
[2017-10-21] MEDS: FAMOTIDINE 20 MG (PEPCID) TABLET GT SCH ×2 (09:54→20:01)
[2017-10-21 17:35] VITALS: BP 160/82
[2017-10-21] MEDS: POLYETHYLENE GLYCOL 17 GM (MIRALAX) PACK PO SCH (19:35)
[2017-10-21 19:51] VITALS: BP 130/78
[2017-10-21] MEDS: ATORVASTATIN 40 MG (LIPITOR) TABLET GT SCH (20:01)
[2017-10-21] MEDS: traZODone 50 MG (DESYREL) TAB PO SCH (20:01)
[2017-10-22 05:00] VITALS: BP 141/79
[2017-10-22] MEDS: BETHANECHOL 25 MG (URECHOLINE) TAB GT SCH ×4 (05:47→21:58)
[2017-10-22] MEDS: RT-ALBUTEROL/IPRATROPIUM 3 ML (DUONEB) VIAL INH SCH ×4 (06:33→18:02)
[2017-10-22] MEDS: RT-BUDESONIDE NEBS 0.5 MG/2ML (PULMICORT) AMP INH SCH ×2 (06:36→18:02)
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
[2017-10-22] MEDS: LEVETIRACETAM 500 MG/ 5 ML UDC ORAL SOLN (KEPPRA) GT SCH ×2 (08:43→21:57)
[2017-10-22] MEDS: ALLOPURINOL 100 MG (ZYLOPRIM) TAB GT SCH ×3 (08:43→21:57)
[2017-10-22] MEDS: meTOprolol TARTRATE 50 MG (LOPRESSOR) TAB GT SCH ×2 (08:43→21:58)
[2017-10-22] MEDS: SENNA W/DOCUSATE (SENOKOT S) TABLET GT SCH ×2 (08:43→21:57)
[2017-10-22] MEDS: FAMOTIDINE 20 MG (PEPCID) TABLET GT SCH ×2 (08:43→21:58)
[2017-10-22] MEDS: ASPIRIN 325 MG (5 GR) TABLET GT SCH (08:43)
--- NOTE | 2017-10-22 09:18 | Occupational Ther Daily Note ---
OT Current Status-Daily Note Mental Status/Objective Functional [place] Measure 0=Not Assessed/NA 4=Minimal Assistance 1=Total Assistance 5=Supervision or Setup 2=Maximal Assistance 6=Modified [place] 3=Moderate Assistance 7=Complete [place] ADL-Treatment OT/PT co-treated due to pt's need for skilled intervention and decreased activity tolerance. Pt assists initiating roll toward R side in bed, dependent for rolling L. PT worked on transfers, mobility, LE ROM and LE wt bearing. OT worked on ADLs, UE wt bearing and fine motor for L UE activities in standing. PROM to R UE. Subluxation in R shldr. Pt was able to wash alicia area and face when instructed to do so. Dependent for cleansing buttocks. Dependent for lower body dressing. Mod A for upper body dressing. Pt continues to require verbal cues to initiate functional movement with L UE. No movement with R UE. Landen lift x2 to transfer into w/c. Pt worked on standing with standing frame. After therapy, pt sitting in recliner with call light in reach. All needs met in room. Nrsg present in room. Functional [place] Measure 0=Not Assessed/NA 4=Minimal Assistance 1=Total Assistance 5=Supervision or Setup 2=Maximal Assistance 6=Modified [place] 3=Moderate Assistance 7=Complete IndependenceIRFPAI Quality Coding Scale 6 Independent with activity with or without an assistive device 5 Patient requires set up or clean up by helper. Patient completes activity by themselves 4 Supervision or touching assist (CGA). [place] provide cues , steadying assist 3 The helper provides less than half the effort to complete the activity 2 The helper provides more than half the effort to complete the activity 1 Dependent. The helper does all the effort to complete an activity 7 Patient refused to complete or attempt activity 9 The patient did not perform the activity before the current illness or injury 88 Not attempted due to Medical conditions or safety concerns Upper Body (FIM): 3 Upper Body Dressing (QC): 3 Lower Body Dressing (FIM): 1 Lower Body Dressing (QC): 1 On/Off Footwear (QC): 1 OT Short Term Goals Short Term Goals Time Frame: Oct 22, 2017 Eating(FIM): 1 Grooming(FIM): 2 Bathing(FIM): 2 Upper Body Dressing(FIM): 2 Lower Body Dressing(FIM): 2 Toileting(FIM): 2 Transfers (B,C,W/C) (FIM): 2 Toilet/Commode Transfer(FIM): 2 Additional Short Term Goals: 1-Demonstrate ADL Tasks, 2-Verbalize Understanding , 3-ImproveStrength/Zunilda 1=Demonstrate adherence to instructed precautions during ADL tasks. 2=Patient will verbalize/demonstrate understanding of assistive devices/ modifications for ADL. 3=Patient will improve strength/tolerance for activity to enable patient to perform ADL's. OT Controls Designer Goals Controls Designer Goals Time Frame: Nov 05, 2017 Eating (FIM): 1 Groomin Oral Hygiene (QC): 3 Bathing(FIM): 3 Shower/Bathe Self (QC): 3 Upper Body Dressing(FIM): 3 Upper Body Dressing (QC): 3 Lower Body Dressing(FIM): 3 Lower Body Dressing (QC): 3 On/Off Footwear (QC): 3 Toileting(FIM): 3 Toileting Hygiene (QC): 3 Transfers (B,C,W/C) (FIM): 3 Toilet/Commode Transfer(FIM): 3 Toilet/Commode Transfer (QC): 3 Shower Transfer(FIM): 3 Comprehension(FIM): 2 Expression (FIM): 2 Social Interaction(FIM): 3 Problem Solving(FIM): 2 Memory(FIM): 2 Additional Goals: 1-Demonstrate ADL Tasks, 2-Verbalize Understanding, 3- ImproveStrength/Zunilda 1=Demonstrate adherence to instructed precautions during ADL tasks. 2=Patient will verbalize/demonstrate understanding of assistive devices/ modifications for ADL. 3=Patient will improve strength/tolerance for activity to enable patient to perform ADL's. OT Education/Plan Discharge Recommendations Plan/Recommendations: Continue POC Treatment Plan/Plan of Care Patient would benefit from OT for education, treatment and training to promote independence in ADL's, mobility, safety and/or upper extremity function for ADL' s. Plan of Care: ADL Retraining, Functional Mobility, UE Funct Exercise/Act Treatment Duration: Nov 05, 2017 Frequency: At least 5 of 7 days/Wk (IRF) Estimated Hrs Per Day: 1.5 hours per day Agreement: Yes Rehab Potential: Guarded Time/GCodes Start Time: 08:00 Stop Time: 09:15 Total Time Billed (hr/min): 75 Billed Treatment Time 1 visit-FA 5 (75 min) co-treat 75 min with PT NGUYEN FREEDMAN Oct 22, 2017 09:18
--- NOTE | 2017-10-22 09:18 | Physical Therapy Daily Note ---
PT Daily Note-Current Subjective Patient in bed pre tx, will be co-treating with OT for 75 min. Patient has no complaints of pain at rest. Patient is soaked in urine and will need to be cleaned and changed. His bottom is also red, nursing notified. Appearance Patient in bed post tx with nurse aide getting bed bath. Mental Status Patient Orientation: Person, Unable to Assess, Non-Verbal/Aphasic Attachments: PEG Tube Transfers Functional [place] Measure 0=Not Assessed/NA 4=Minimal Assistance 1=Total Assistance 5=Supervision or Setup 2=Maximal Assistance 6=Modified [place] 3=Moderate Assistance 7=Complete IndependenceIRFPAI Quality Coding Scale 6 Independent with activity with or without an assistive device 5 Patient requires set up or clean up by helper. Patient completes activity by themselves 4 Supervision or touching assist (CGA). [place] provide cues , steadying assist 3 The helper provides less than half the effort to complete the activity 2 The helper provides more than half the effort to complete the activity 1 Dependent. The helper does all the effort to complete an activity 7 Patient refused to complete or attempt activity 9 The patient did not perform the activity before the current illness or injury 88 Not attempted due to Medical conditions or safety concerns Transfers (B, C, W/C) (FIM): 1 Scootin Rollin Supine to/from Sit: 1 Sit to/from Stand: 1 Bed to/from Chair: 1 Patient will roll to the right side with max assist, brayan for transfers. Treatments Patient was rolled many times to get clean and get brief on and dressed. He was hoyered to wheelchair and taken to therapy gym and put into standing frame. He stood for about 15 min with PT providing trunk positioning and OT performing UE AROM. He then sat in wheelchair and OT performed UE ROM and PT performed LE ROM, and was taken back to his room and put into bed via brayan. He was rolled again many times back and forth to get sling out and get undressed for nursing to give him a bed bath. OT worked on UE ROM, rolling, dressing, cleaning. PT worked on LE ROM, rolling , transfers, trunk positioning. Assessment Current Status: Poor Progress no change in mobility PT Short Term Goals Short Term Goals Time Frame: Oct 22, 2017 Transfers (B,C,W/C) (FIM): 2 Wheelchair (FIM): 2 PT Residential Goals Residential Goals PT Residential Goals Time Frame: Nov 05, 2017 Transfers (B,C,W/C) (FIM): 3 Sit to Lying (QC): 3 Lying-Sitting on Side/Bed(QC): 3 Sit to Stand (QC): 3 Rollin Roll Left to Right (QC): 3 Chair/Kpb-ct-Dmoxs Xfer(QC): 3 Car Transfer (QC): 3 Does the Patient Walk: No and Walking Goal IS indicated Gait (FIM): 2 Gait distance (FIM): 1=up to 49 ft Distance: steps only Walk 10 feet (QC): 2 Walk 10ft-Uneven Surface(QC): 88 Walk 50ft with 2 Turns (QC): 88 Walk 150 ft (QC): 88 Gait Level of Assist: 2 Does the Pt use WC or Scooter?: Yes Wheelchair (FIM): 2 Wheelchair distance (FIM): 4=010-99 ft Distance: 50 ft Wheelchair Level of Assist: 4 Wheel 50 feet with 2 turns (QC: 4 Stairs (FIM): 1 1 Step (curb) (QC): 1 4 Steps (QC): 1 12 Steps (QC): 1 Picking up an Object (QC): 1 PT Plan Problem List Problem List: Activity Tolerance, Functional Strength, Safety, Balance, Transfer, Bed Mobility, ROM Treatment/Plan Treatment Plan: Continue Plan of Care Treatment Plan: Bed Mobility, Education, Functional Activity Zunilda, Functional Strength, Group Therapy, Gait, Safety, Therapeutic Exercise, Transfers Treatment Duration: Nov 05, 2017 Frequency: At least 5 of 7 days/Wk (IRF) Estimated Hrs Per Day: 1.5 hours per day Patient and/or Family Agrees t: Yes Safety Risks/Education Patient Education: Transfer Techniques, Correct Positioning, Safety Issues Teaching Recipient: Patient Teaching Methods: Demonstration, Discussion Response to Teaching: Reinforcement Needed Time/GCodes Time In: 0800 Time Out: 0915 Total Billed Treatment Time: 75 Total Billed Treatment 1 visit FA 75' ANA ALVAREZ PT Oct 22, 2017 09:18
--- NOTE | 2017-10-22 10:00 | Speech Therapy Daily Note ---
Speech Daily Progress Note Subjective Date Seen by Provider: Oct 22, 2017 Time Seen by Provider: 09:15 The patient was laying in bed, sleeping upon arrival. The patient required moderate consistent cueing for participation, frequently closing his eyes and saying, "no." Objective The clinician retrieved the patient's breakfast tray from the refrigerator and heated it for the patient. The items included pureed waffle and pureed eggs with nectar-thick milk. The clinician gave the patient one bite of the waffle. While pureed, the waffle still required mastication, which the patient failed to do. The patient attempted to swallow without mastication which resulted in immediate coughing. The patient expectorated the small bolus into a napkin. The patient refused additional trials. The patient refused pureed eggs. The patient refused nectar-thick milk. The patient agreed to drink cranberry juice thickened, therefore, the clinician ordered some for him. The patient consumed three sips of cranberry juice prior to refusing additional trials. The patient would not consume additional items which were offered by the clinician including pudding, yogurt, or pureed fruit. The patient continues to demonstrate poor progress with limited motivation. Assessment Assessment Current Status: Poor Progress Treatment Plan Continue Plan of Care Communication Comprehension: 2 Expression: 1 Social Cognition Social Interaction: 1 Problem Solvin Memory: 1 Speech Short Term Goals Short Term Goals Short Term Goals 1. The patient will display 75% accuracy with oropharyngeal swallowing exercises with moderate clinician verbal cueing. 2. The patient will tolerate 10/10 trials of honey-thick liquid without signs/ symptoms of aspiration or laryngeal penetration. 3. The patient will repeat functional phrases with 75% accuracy and mild clinician verbal cueing. 4. The patient will demonstrate adductor fold exercises with 75% accuracy and moderate clinician verbal cueing. Time Frame-STG: Three Weeks Speech Wood Scrap Handler Goals Wood Scrap Handler Goals 1. The patient will tolerate the least restrictive consistency (trials and diet ) without signs/symptoms of aspiration or laryngeal penetration. 2. The patient will display improved cognition linguistic function for increased function and safety. Time Frame: Four Weeks Comprehension: 2 Expression: 2 Social Interaction: 3 Problem Solvin Memory: 2 Speech-Plan Treatment Plan Speech Therapy Treatment Plan: Continue Plan of Care Continue swallow therapy in attempts to improve PO intake and safety. Treatment Duration: Nov 02, 2017 Frequency: 4 times per week Estimated Hrs Per Day: .5 hour per day Rehab Potential: Guarded Safety Risks/Education Teaching Recipient: Patient Teaching Methods: Discussion Response to Teaching: Reinforcement Needed Education Topics Provided: PO Trials, Importance of Continued Participation Time Speech Therapy Time In: 09:15 Speech Therapy Time Out: 09:45 Total Billed Time: 30 Billed Treatment Time 1DANDRE ELIZABETH ST Oct 22, 2017 10:00
[2017-10-22 18:00] VITALS: BP 155/73
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
[2017-10-22] MEDS: ATORVASTATIN 40 MG (LIPITOR) TABLET GT SCH (21:57)
[2017-10-22] MEDS: POLYETHYLENE GLYCOL 17 GM (MIRALAX) PACK PO SCH (21:58)
[2017-10-22] MEDS: traZODone 50 MG (DESYREL) TAB PO SCH (21:58)
[2017-10-23 05:02] VITALS: BP 128/81
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
[2017-10-23] MEDS: BETHANECHOL 25 MG (URECHOLINE) TAB GT SCH ×4 (06:16→21:53)
[2017-10-23] MEDS: RT-ALBUTEROL/IPRATROPIUM 3 ML (DUONEB) VIAL INH SCH ×4 (06:49→19:04)
[2017-10-23] MEDS: RT-BUDESONIDE NEBS 0.5 MG/2ML (PULMICORT) AMP INH SCH ×2 (06:49→19:04)
[2017-10-23] MEDS: ALLOPURINOL 100 MG (ZYLOPRIM) TAB GT SCH ×3 (08:40→21:53)
[2017-10-23] MEDS: LEVETIRACETAM 500 MG/ 5 ML UDC ORAL SOLN (KEPPRA) GT SCH ×2 (08:40→21:53)
[2017-10-23] MEDS: ASPIRIN 325 MG (5 GR) TABLET GT SCH (08:40)
[2017-10-23] MEDS: SENNA W/DOCUSATE (SENOKOT S) TABLET GT SCH ×2 (08:41→21:53)
[2017-10-23] MEDS: FAMOTIDINE 20 MG (PEPCID) TABLET GT SCH ×2 (08:41→21:53)
[2017-10-23] MEDS: meTOprolol TARTRATE 50 MG (LOPRESSOR) TAB GT SCH ×2 (08:41→21:20)
--- NOTE | 2017-10-23 09:26 | Occ Therapy Progress Note ---
Therapy Progress Note Attempted to see pt at 0800 for therapy session and shower. Pt refused to complete shower and participate in therapy. OT/PT returned at 0905 pt continued to refuse. When asked about shower pt stated tomorrow. OT/PT encouraged pt to participate in therapy and pt stated not now. OT/PT will attempt again in an hour. NGUYEN FREEDMAN Oct 23, 2017 09:26
--- NOTE | 2017-10-23 11:01 | Occupational Ther Daily Note ---
OT Current Status-Daily Note Subjective Pt lying in bed, alert. Pt refused to complete treatment initially. LORENZANA encouraged pt to participate in PROM and taping for shldr subluxation. Pt closed his eyes and ignored LORENZANA. Mental Status/Objective Functional [place] Measure 0=Not Assessed/NA 4=Minimal Assistance 1=Total Assistance 5=Supervision or Setup 2=Maximal Assistance 6=Modified [place] 3=Moderate Assistance 7=Complete [place] ADL-Treatment Functional [place] Measure 0=Not Assessed/NA 4=Minimal Assistance 1=Total Assistance 5=Supervision or Setup 2=Maximal Assistance 6=Modified [place] 3=Moderate Assistance 7=Complete IndependenceIRFPAI Quality Coding Scale 6 Independent with activity with or without an assistive device 5 Patient requires set up or clean up by helper. Patient completes activity by themselves 4 Supervision or touching assist (CGA). [place] provide cues , steadying assist 3 The helper provides less than half the effort to complete the activity 2 The helper provides more than half the effort to complete the activity 1 Dependent. The helper does all the effort to complete an activity 7 Patient refused to complete or attempt activity 9 The patient did not perform the activity before the current illness or injury 88 Not attempted due to Medical conditions or safety concerns Other Treatment Taping to R shldr to support 2" shldr subluxation. Humeral head anterior to shldr joint. Taping supporting shldr though unable to place humeral head into correct position. PROM to R shldr after taping. Shldr flexion to approx 125 degrees. R wrist tight for extension. PROM WFL for supination/pronation, elbow flex/ext, internal/external rotation. Behavior health to see pt at end of treatment. Call light/phone in reach. All needs met in room. OT Short Term Goals Short Term Goals Time Frame: Oct 22, 2017 Eating(FIM): 1 Grooming(FIM): 2 Bathing(FIM): 2 Upper Body Dressing(FIM): 2 Lower Body Dressing(FIM): 2 Toileting(FIM): 2 Transfers (B,C,W/C) (FIM): 2 Toilet/Commode Transfer(FIM): 2 Additional Short Term Goals: 1-Demonstrate ADL Tasks, 2-Verbalize Understanding , 3-ImproveStrength/Zunilda 1=Demonstrate adherence to instructed precautions during ADL tasks. 2=Patient will verbalize/demonstrate understanding of assistive devices/ modifications for ADL. 3=Patient will improve strength/tolerance for activity to enable patient to perform ADL's. OT Healthcare Or Medical Goals Healthcare Or Medical Goals Time Frame: Nov 05, 2017 Eating (FIM): 1 Groomin Oral Hygiene (QC): 3 Bathing(FIM): 3 Shower/Bathe Self (QC): 3 Upper Body Dressing(FIM): 3 Upper Body Dressing (QC): 3 Lower Body Dressing(FIM): 3 Lower Body Dressing (QC): 3 On/Off Footwear (QC): 3 Toileting(FIM): 3 Toileting Hygiene (QC): 3 Transfers (B,C,W/C) (FIM): 3 Toilet/Commode Transfer(FIM): 3 Toilet/Commode Transfer (QC): 3 Shower Transfer(FIM): 3 Comprehension(FIM): 2 Expression (FIM): 2 Social Interaction(FIM): 3 Problem Solving(FIM): 2 Memory(FIM): 2 Additional Goals: 1-Demonstrate ADL Tasks, 2-Verbalize Understanding, 3- ImproveStrength/Zunilda 1=Demonstrate adherence to instructed precautions during ADL tasks. 2=Patient will verbalize/demonstrate understanding of assistive devices/ modifications for ADL. 3=Patient will improve strength/tolerance for activity to enable patient to perform ADL's. OT Education/Plan Discharge Recommendations Plan/Recommendations: Continue POC Treatment Plan/Plan of Care Patient would benefit from OT for education, treatment and training to promote independence in ADL's, mobility, safety and/or upper extremity function for ADL' s. Plan of Care: ADL Retraining, Functional Mobility, UE Funct Exercise/Act Treatment Duration: Nov 05, 2017 Frequency: At least 5 of 7 days/Wk (IRF) Estimated Hrs Per Day: 1.5 hours per day Agreement: Yes Rehab Potential: Guarded Time/GCodes Start Time: 09:45 Stop Time: 10:15 Total Time Billed (hr/min): 30 Billed Treatment Time 1 visit-NM 2 (30 min) NGUYEN FREEDMAN Oct 23, 2017 11:01
--- NOTE | 2017-10-23 11:54 | Occupational Ther Daily Note ---
OT Current Status-Daily Note Subjective Pt alert, lying in bed. Pt tolerated therapy. No c/o pain. Mental Status/Objective Patient Orientation: Person, Place, Non-Verbal/Aphasic, Time, Situation Functional [place] Measure 0=Not Assessed/NA 4=Minimal Assistance 1=Total Assistance 5=Supervision or Setup 2=Maximal Assistance 6=Modified [place] 3=Moderate Assistance 7=Complete [place] Attachments: PEG Tube ADL-Treatment Pt completed bed bath today. LORENZANA and nrsg completed. Pt did assist with turning to each side. Pt assist more turning toward L. Total care with bed bath. Pt incontinent of bowel and bladder. After set up, pt able to scoop and bring food to mouth using spoon. Had difficulty with using fork. After therapy , pt lying on L side with call light in reach. All needs met in room. Functional [place] Measure 0=Not Assessed/NA 4=Minimal Assistance 1=Total Assistance 5=Supervision or Setup 2=Maximal Assistance 6=Modified [place] 3=Moderate Assistance 7=Complete IndependenceIRFPAI Quality Coding Scale 6 Independent with activity with or without an assistive device 5 Patient requires set up or clean up by helper. Patient completes activity by themselves 4 Supervision or touching assist (CGA). [place] provide cues , steadying assist 3 The helper provides less than half the effort to complete the activity 2 The helper provides more than half the effort to complete the activity 1 Dependent. The helper does all the effort to complete an activity 7 Patient refused to complete or attempt activity 9 The patient did not perform the activity before the current illness or injury 88 Not attempted due to Medical conditions or safety concerns Eating (FIM): 4 Eating (QC): 3 OT Short Term Goals Short Term Goals Time Frame: Oct 22, 2017 Eating(FIM): 1 Grooming(FIM): 2 Bathing(FIM): 2 Upper Body Dressing(FIM): 2 Lower Body Dressing(FIM): 2 Toileting(FIM): 2 Transfers (B,C,W/C) (FIM): 2 Toilet/Commode Transfer(FIM): 2 Additional Short Term Goals: 1-Demonstrate ADL Tasks, 2-Verbalize Understanding , 3-ImproveStrength/Zunilda 1=Demonstrate adherence to instructed precautions during ADL tasks. 2=Patient will verbalize/demonstrate understanding of assistive devices/ modifications for ADL. 3=Patient will improve strength/tolerance for activity to enable patient to perform ADL's. OT Greaser Helper Goals Greaser Helper Goals Time Frame: Nov 05, 2017 Eating (FIM): 1 Groomin Oral Hygiene (QC): 3 Bathing(FIM): 3 Shower/Bathe Self (QC): 3 Upper Body Dressing(FIM): 3 Upper Body Dressing (QC): 3 Lower Body Dressing(FIM): 3 Lower Body Dressing (QC): 3 On/Off Footwear (QC): 3 Toileting(FIM): 3 Toileting Hygiene (QC): 3 Transfers (B,C,W/C) (FIM): 3 Toilet/Commode Transfer(FIM): 3 Toilet/Commode Transfer (QC): 3 Shower Transfer(FIM): 3 Comprehension(FIM): 2 Expression (FIM): 2 Social Interaction(FIM): 3 Problem Solving(FIM): 2 Memory(FIM): 2 Additional Goals: 1-Demonstrate ADL Tasks, 2-Verbalize Understanding, 3- ImproveStrength/Zunilda 1=Demonstrate adherence to instructed precautions during ADL tasks. 2=Patient will verbalize/demonstrate understanding of assistive devices/ modifications for ADL. 3=Patient will improve strength/tolerance for activity to enable patient to perform ADL's. OT Education/Plan Discharge Recommendations Plan/Recommendations: Continue POC Treatment Plan/Plan of Care Patient would benefit from OT for education, treatment and training to promote independence in ADL's, mobility, safety and/or upper extremity function for ADL' s. Plan of Care: ADL Retraining, Functional Mobility, UE Funct Exercise/Act Treatment Duration: Nov 05, 2017 Frequency: At least 5 of 7 days/Wk (IRF) Estimated Hrs Per Day: 1.5 hours per day Agreement: Yes Rehab Potential: Guarded Time/GCodes Start Time: 11:00 Stop Time: 12:00 Total Time Billed (hr/min): 60 Billed Treatment Time 1 visit-ADL 4 (60 min) NGUYEN FREEDMAN Oct 23, 2017 11:54
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
--- NOTE | 2017-10-23 12:26 | Physical Therapy Progress Note ---
Therapy Progress Note Attempted to see pt at 0800 for therapy session. Pt refused to complete shower and participate in therapy. OT/PT returned at 0905 pt continued to refuse. When asked about shower pt stated tomorrow. OT/PT encouraged pt to participate in therapy and pt stated not now. OT/PT will attempt again after lunch. 1 visit, no tx rendered JOSE LUIS BRITT PRESCHOOL ASSOCIATE TEACHER Oct 23, 2017 12:25
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
--- NOTE | 2017-10-23 13:39 | Occupational Ther Daily Note ---
OT Current Status-Daily Note Subjective Pt alert, lying in bed. No c/o pain at this time. Mental Status/Objective Patient Orientation: Person, Place, Non-Verbal/Aphasic, Time, Situation Functional [place] Measure 0=Not Assessed/NA 4=Minimal Assistance 1=Total Assistance 5=Supervision or Setup 2=Maximal Assistance 6=Modified [place] 3=Moderate Assistance 7=Complete [place] ADL-Treatment OT/PT co-treated due to pt's need for skilled intervention and decreased activity tolerance. Pt assists initiating roll toward R side in bed, dependent for rolling L. PT worked on transfers, mobility, LE ROM and LE wt bearing. OT worked on ADLs. After therapy, pt lying in bed with call light/phone in reach. All needs met in room. Functional [place] Measure 0=Not Assessed/NA 4=Minimal Assistance 1=Total Assistance 5=Supervision or Setup 2=Maximal Assistance 6=Modified [place] 3=Moderate Assistance 7=Complete IndependenceIRFPAI Quality Coding Scale 6 Independent with activity with or without an assistive device 5 Patient requires set up or clean up by helper. Patient completes activity by themselves 4 Supervision or touching assist (CGA). [place] provide cues , steadying assist 3 The helper provides less than half the effort to complete the activity 2 The helper provides more than half the effort to complete the activity 1 Dependent. The helper does all the effort to complete an activity 7 Patient refused to complete or attempt activity 9 The patient did not perform the activity before the current illness or injury 88 Not attempted due to Medical conditions or safety concerns OT Short Term Goals Short Term Goals Time Frame: Oct 22, 2017 Eating(FIM): 1 Grooming(FIM): 2 Bathing(FIM): 2 Upper Body Dressing(FIM): 2 Lower Body Dressing(FIM): 2 Toileting(FIM): 2 Transfers (B,C,W/C) (FIM): 2 Toilet/Commode Transfer(FIM): 2 Additional Short Term Goals: 1-Demonstrate ADL Tasks, 2-Verbalize Understanding , 3-ImproveStrength/Zunilda 1=Demonstrate adherence to instructed precautions during ADL tasks. 2=Patient will verbalize/demonstrate understanding of assistive devices/ modifications for ADL. 3=Patient will improve strength/tolerance for activity to enable patient to perform ADL's. OT Longterm Goals Brick And Tile Making Machine Operator Goals Time Frame: Nov 05, 2017 Eating (FIM): 1 Groomin Oral Hygiene (QC): 3 Bathing(FIM): 3 Shower/Bathe Self (QC): 3 Upper Body Dressing(FIM): 3 Upper Body Dressing (QC): 3 Lower Body Dressing(FIM): 3 Lower Body Dressing (QC): 3 On/Off Footwear (QC): 3 Toileting(FIM): 3 Toileting Hygiene (QC): 3 Transfers (B,C,W/C) (FIM): 3 Toilet/Commode Transfer(FIM): 3 Toilet/Commode Transfer (QC): 3 Shower Transfer(FIM): 3 Comprehension(FIM): 2 Expression (FIM): 2 Social Interaction(FIM): 3 Problem Solving(FIM): 2 Memory(FIM): 2 Additional Goals: 1-Demonstrate ADL Tasks, 2-Verbalize Understanding, 3- ImproveStrength/Zunilda 1=Demonstrate adherence to instructed precautions during ADL tasks. 2=Patient will verbalize/demonstrate understanding of assistive devices/ modifications for ADL. 3=Patient will improve strength/tolerance for activity to enable patient to perform ADL's. OT Education/Plan Discharge Recommendations Plan/Recommendations: Continue POC Treatment Plan/Plan of Care Patient would benefit from OT for education, treatment and training to promote independence in ADL's, mobility, safety and/or upper extremity function for ADL' s. Plan of Care: ADL Retraining, Functional Mobility, UE Funct Exercise/Act Treatment Duration: Nov 05, 2017 Frequency: At least 5 of 7 days/Wk (IRF) Estimated Hrs Per Day: 1.5 hours per day Agreement: Yes Rehab Potential: Guarded Time/GCodes Start Time: 12:55 Stop Time: 13:25 Total Time Billed (hr/min): 30 Billed Treatment Time 1 visit-FA 2 (30 min) NGUYEN FREEDMAN Oct 23, 2017 13:39
--- NOTE | 2017-10-23 14:09 | Physical Therapy Daily Note ---
PT Daily Note-Current Subjective Pt is R sidelying upon arrival. Pt agrees to PT/OT assisting pt with donning/ doffing brief & clean up. Pain Location: No Pain Reported Mental Status Patient Orientation: Person Transfers Functional [place] Measure 0=Not Assessed/NA 4=Minimal Assistance 1=Total Assistance 5=Supervision or Setup 2=Maximal Assistance 6=Modified [place] 3=Moderate Assistance 7=Complete IndependenceIRFPAI Quality Coding Scale 6 Independent with activity with or without an assistive device 5 Patient requires set up or clean up by helper. Patient completes activity by themselves 4 Supervision or touching assist (CGA). [place] provide cues , steadying assist 3 The helper provides less than half the effort to complete the activity 2 The helper provides more than half the effort to complete the activity 1 Dependent. The helper does all the effort to complete an activity 7 Patient refused to complete or attempt activity 9 The patient did not perform the activity before the current illness or injury 88 Not attempted due to Medical conditions or safety concerns Scootin Rollin Roll Left to Right (QC): 1 Gait Training Does the Patient Walk?: No and Walking Goal NOT indicated Exercises Supine Ex: Ankle pumps, Quad Set, Heel Slides, Straight leg raise, Hip abd/add Supine Reps: 10 Treatments PT & OT assisted pt in rolling for cleanup of brief & bed pad. Pt then completes Supine Ex in bed at [facility]. Pt resting Supine in bed at end of tx with all needs met & ST to arrive shortly. Assessment Current Status: Fair Progress Pt has lack of motivation to complete tx and continues to demonstrate a lack of strength that will be present for the future. PT Short Term Goals Short Term Goals Time Frame: Oct 22, 2017 Transfers (B,C,W/C) (FIM): 2 Wheelchair (FIM): 2 PT Director Of Assessing Goals Snf Goals PT Snf Goals Time Frame: Nov 05, 2017 Transfers (B,C,W/C) (FIM): 3 Sit to Lying (QC): 3 Lying-Sitting on Side/Bed(QC): 3 Sit to Stand (QC): 3 Rollin Roll Left to Right (QC): 3 Chair/Lzu-zy-Ptcjv Xfer(QC): 3 Car Transfer (QC): 3 Does the Patient Walk: No and Walking Goal IS indicated Gait (FIM): 2 Gait distance (FIM): 1=up to 49 ft Distance: steps only Walk 10 feet (QC): 2 Walk 10ft-Uneven Surface(QC): 88 Walk 50ft with 2 Turns (QC): 88 Walk 150 ft (QC): 88 Gait Level of Assist: 2 Does the Pt use WC or Scooter?: Yes Wheelchair (FIM): 2 Wheelchair distance (FIM): 0=818-38 ft Distance: 50 ft Wheelchair Level of Assist: 4 Wheel 50 feet with 2 turns (QC: 4 Stairs (FIM): 1 1 Step (curb) (QC): 1 4 Steps (QC): 1 12 Steps (QC): 1 Picking up an Object (QC): 1 PT Plan Problem List Problem List: Activity Tolerance, Functional Strength, Safety, Balance, Gait, Transfer, Bed Mobility, ROM Treatment/Plan Treatment Plan: Continue Plan of Care Treatment Plan: Bed Mobility, Education, Functional Activity Zunilda, Functional Strength, Group Therapy, Gait, Safety, Therapeutic Exercise, Transfers Treatment Duration: Nov 05, 2017 Frequency: At least 5 of 7 days/Wk (IRF) Estimated Hrs Per Day: 1.5 hours per day Patient and/or Family Agrees t: Yes Safety Risks/Education Patient Education: Correct Positioning, Safety Issues Teaching Recipient: Patient Teaching Methods: Discussion Response to Teaching: Reinforcement Needed Time/GCodes Time In: 1255 Time Out: 1325 Total Billed Treatment Time: 30 Total Billed Treatment 1, EX (15m) & FA (15m) Co-treat for 30m; PT worked on LE ROM, WT Bearing & transfers and OT worked on ADLs. G Codes Necessary: JOSE LUIS Huitron PTA Oct 23, 2017 14:09
--- NOTE | 2017-10-23 14:28 | Speech Therapy Daily Note ---
Speech Daily Progress Note Subjective Time Seen by Provider: 13:30 The pt was watching TV in bed. Greeted LITHOGRAPHIC PROOFER APPRENTICE with eye gaze. This pt is known to this LITHOGRAPHIC PROOFER APPRENTICE as pt was seen by this LITHOGRAPHIC PROOFER APPRENTICE at [facility] rehab unit. Pt verbalizes answers simple questions with decreased vocal intensity. Pt agreeable to snack of applesauce. Objective Pt tolerated 3 bites of applesauce and then verbalized "no more". Encouragement provided for more intake, but he denied. Effortful swallow completed x5 with encouragement. Hard glottal attack words with k/g completed x30 words. Assessment Pt has demonstrated improvements compared to this cutter down last visit with pt at [facility] as pt is now verbalizing/vocalizing simple words/phrases. Treatment Plan Continue Plan of Care Communication Comprehension: 2 Expression: 1 Social Cognition Social Interaction: 1 Problem Solvin Memory: 1 Speech Short Term Goals Short Term Goals Short Term Goals 1. The patient will display 75% accuracy with oropharyngeal swallowing exercises with moderate clinician verbal cueing. 2. The patient will tolerate 10/10 trials of honey-thick liquid without signs/ symptoms of aspiration or laryngeal penetration. 3. The patient will repeat functional phrases with 75% accuracy and mild clinician verbal cueing. 4. The patient will demonstrate adductor fold exercises with 75% accuracy and moderate clinician verbal cueing. Time Frame-STG: Three Weeks Speech Clerical Methods Analyst Goals Senior Care Goals 1. The patient will tolerate the least restrictive consistency (trials and diet ) without signs/symptoms of aspiration or laryngeal penetration. 2. The patient will display improved cognition linguistic function for increased function and safety. Time Frame: Four Weeks Comprehension: 2 Expression: 2 Social Interaction: 3 Problem Solvin Memory: 2 Speech-Plan Treatment Plan Speech Therapy Treatment Plan: Continue Plan of Care CONTINUE DYSPHAGIA TX Treatment Duration: Nov 02, 2017 Frequency: 4 times per week Estimated Hrs Per Day: .5 hour per day Rehab Potential: Guarded Time Speech Therapy Time In: 13:30 Speech Therapy Time Out: 14:00 Billed Treatment Time 1, DYST 30 MIN DOROTHY DAMON Oct 23, 2017 14:28
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
[2017-10-23 15:47] VITALS: BP 148/82
[2017-10-23] MEDS: ATORVASTATIN 40 MG (LIPITOR) TABLET GT SCH (21:53)
[2017-10-23] MEDS: traZODone 50 MG (DESYREL) TAB PO SCH (21:53)
[2017-10-23] MEDS: POLYETHYLENE GLYCOL 17 GM (MIRALAX) PACK PO SCH (21:53)
[2017-10-24 06:00] VITALS: BP 134/80
[2017-10-24] MEDS: BETHANECHOL 25 MG (URECHOLINE) TAB GT SCH ×4 (06:24→20:54)
[2017-10-24] MEDS: RT-BUDESONIDE NEBS 0.5 MG/2ML (PULMICORT) AMP INH SCH ×2 (06:59→19:20)
[2017-10-24] MEDS: RT-ALBUTEROL/IPRATROPIUM 3 ML (DUONEB) VIAL INH SCH ×4 (06:59→19:20)
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
--- NOTE | 2017-10-24 09:03 | Speech Therapy Daily Note ---
Speech Daily Progress Note Subjective Date Seen by Provider: Oct 24, 2017 Time Seen by Provider: 08:00 The patient was laying in bed, watching TV upon entrance. The patient glanced at the clinician, however, did not greet the clinician on this date. The patient did not refuse therapy, however, did not participate independently. Maximum, consistent encouragement was required for participation in the session. The patient displayed reduced participation and motivation in comparison to his previously limited participation with the clinician ( regressing). Objective The patient refused PO trials on this date regardless of consistent offering by clinician. Dysphagia Exercises: The patient performed three repetitions of lingual protrusion, two repetitions of velar productions, five pitch glides, and four loud /ah's/ with maximum consistent verbal prompting. The patient was asked to complete ten repetitions of each exercise. The patient would close eyes and turn away from the clinician. Assessment Assessment Current Status: Poor Progress, Regressing Treatment Plan Continue Plan of Care Communication Comprehension: 4 (Patient displays a high level of comprehension, however, poor motivation.) Expression: 1 (The patient is able to communicate via one word responses, however, does not initiate and requires maximum prompting for participation.) Social Cognition Social Interaction: 1 Problem Solvin (Patient lacks motivation to demonstrate functional problem solving.) Memory: 1 Speech Short Term Goals Short Term Goals Short Term Goals 1. The patient will display 75% accuracy with oropharyngeal swallowing exercises with moderate clinician verbal cueing. NOT MET 2. The patient will tolerate 10/10 trials of honey-thick liquid without signs/ symptoms of aspiration or laryngeal penetration. MET 3. The patient will repeat functional phrases with 75% accuracy and mild clinician verbal cueing. NOT MET 4. The patient will demonstrate adductor fold exercises with 75% accuracy and moderate clinician verbal cueing. NOT MET Time Frame-STG: Three Weeks Speech Whizzer Goals Whizzer Goals 1. The patient will tolerate the least restrictive consistency (trials and diet ) without signs/symptoms of aspiration or laryngeal penetration. MET 2. The patient will display improved cognition linguistic function for increased function and safety. NOT MET Time Frame: Four Weeks Comprehension: 2 (MET) Expression: 2 (NOT MET) Social Interaction: 3 (NOT MET) Problem Solvin (NOT MET) Memory: 2 (NOT MET) Speech-Plan Treatment Plan Speech Therapy Treatment Plan: Discontinue ST The patient to discharge on 10/25/2017 due to lack of progress. Treatment Duration: Nov 02, 2017 Frequency: 4 times per week Estimated Hrs Per Day: .5 hour per day Rehab Potential: Guarded Safety Risks/Education Teaching Recipient: Patient Teaching Methods: Discussion Response to Teaching: Reinforcement Needed Education Topics Provided: Plan of Care, Dysphagia Exercises Discharge Recommendations Speech Therapy Home Care, Other, See Comments (24 hour care.) Time Speech Therapy Time In: 08:00 Speech Therapy Time Out: 08:30 Total Billed Time: 30 Billed Treatment Time 1, DANDRE THERESA RIVERO Oct 24, 2017 09:03
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
[2017-10-24] MEDS: FAMOTIDINE 20 MG (PEPCID) TABLET GT SCH ×2 (10:00→20:54)
[2017-10-24] MEDS: meTOprolol TARTRATE 50 MG (LOPRESSOR) TAB GT SCH ×2 (10:00→20:54)
[2017-10-24] MEDS: LEVETIRACETAM 500 MG/ 5 ML UDC ORAL SOLN (KEPPRA) GT SCH ×2 (10:00→20:54)
[2017-10-24] MEDS: SENNA W/DOCUSATE (SENOKOT S) TABLET GT SCH ×2 (10:00→20:54)
[2017-10-24] MEDS: ALLOPURINOL 100 MG (ZYLOPRIM) TAB GT SCH ×3 (10:00→20:54)
[2017-10-24] MEDS: ASPIRIN 325 MG (5 GR) TABLET GT SCH (10:00)
--- NOTE | 2017-10-24 10:06 | Physical Therapy Daily Note ---
PT Daily Note-Current Subjective Patient in bed pre tx, will be co-treating with OT and doing family training with patient's . Patient has no complaints of pain. Appearance Patient in bed post tx, on side for pressure relief with pillow support. Patient has nurse call, in the room. Mental Status Patient Orientation: Person, Unable to Assess, Non-Verbal/Aphasic Attachments: PEG Tube Transfers Functional [place] Measure 0=Not Assessed/NA 4=Minimal Assistance 1=Total Assistance 5=Supervision or Setup 2=Maximal Assistance 6=Modified [place] 3=Moderate Assistance 7=Complete IndependenceIRFPAI Quality Coding Scale 6 Independent with activity with or without an assistive device 5 Patient requires set up or clean up by helper. Patient completes activity by themselves 4 Supervision or touching assist (CGA). [place] provide cues , steadying assist 3 The helper provides less than half the effort to complete the activity 2 The helper provides more than half the effort to complete the activity 1 Dependent. The helper does all the effort to complete an activity 7 Patient refused to complete or attempt activity 9 The patient did not perform the activity before the current illness or injury 88 Not attempted due to Medical conditions or safety concerns Transfers (B, C, W/C) (FIM): 1 Scootin Rollin Roll Left to Right (QC): 2 Supine to/from Sit: 1 Sit to/from Stand: 1 Sit to Lying (QC): 1 Sit to Stand (QC): 1 Chair/Flt-vw-Xjiad Xfer(QC): 1 Bed to/from Chair: 1 Car Transfer (QC): 1 Patient is dependent for all mobility except he can roll to the right side with max assist. Patient has been using a brayan for transfers or dependent stand pivot. Treatments Patient refused to transfer to a shower chair and get a shower and help perform family training with his . Instead he got a bed bath. He also had to roll to each side many times for undressing, cleaning BM, cleaning his backside during bath, and dressing. Therapist discussed the correct use of brayan and sling and how to roll from side to side and bed mobility. OT worked on cleaning , dressing, bathing. PT worked on rolling, positioning, and assisted with bathing and dressing. Assessment Current Status: Poor Progress no change in mobility PT Short Term Goals Short Term Goals Time Frame: Oct 22, 2017 Transfers (B,C,W/C) (FIM): 2 Wheelchair (FIM): 2 PT Long-Term Goals Long-Term Goals PT Long-Term Goals Time Frame: Nov 05, 2017 Transfers (B,C,W/C) (FIM): 3 Sit to Lying (QC): 3 Lying-Sitting on Side/Bed(QC): 3 Sit to Stand (QC): 3 Rollin Roll Left to Right (QC): 3 Chair/Qja-nw-Pliss Xfer(QC): 3 Car Transfer (QC): 3 Does the Patient Walk: No and Walking Goal IS indicated Gait (FIM): 2 Gait distance (FIM): 1=up to 49 ft Distance: steps only Walk 10 feet (QC): 2 Walk 10ft-Uneven Surface(QC): 88 Walk 50ft with 2 Turns (QC): 88 Walk 150 ft (QC): 88 Gait Level of Assist: 2 Does the Pt use WC or Scooter?: Yes Wheelchair (FIM): 2 Wheelchair distance (FIM): 8=885-25 ft Distance: 50 ft Wheelchair Level of Assist: 4 Wheel 50 feet with 2 turns (QC: 4 Stairs (FIM): 1 1 Step (curb) (QC): 1 4 Steps (QC): 1 12 Steps (QC): 1 Picking up an Object (QC): 1 PT Plan Problem List Problem List: Activity Tolerance, Functional Strength, Safety, Balance, Gait, Transfer, Bed Mobility, ROM Treatment/Plan Treatment Plan: Continue Plan of Care Treatment Plan: Bed Mobility, Education, Functional Activity Zunilda, Functional Strength, Group Therapy, Gait, Safety, Therapeutic Exercise, Transfers Treatment Duration: Nov 05, 2017 Frequency: At least 5 of 7 days/Wk (IRF) Estimated Hrs Per Day: 1.5 hours per day Patient and/or Family Agrees t: Yes Safety Risks/Education Patient Education: Transfer Techniques, Correct Positioning, Safety Issues Teaching Recipient: Patient Teaching Methods: Demonstration, Discussion Response to Teaching: Reinforcement Needed Time/GCodes Time In: 0900 Time Out: 1000 Total Billed Treatment Time: 60 Total Billed Treatment 1 visit FA 60' ANA ALVAREZ PT Oct 24, 2017 10:06
--- NOTE | 2017-10-24 12:53 | Occupational Ther Daily Note ---
OT Current Status-Daily Note Subjective Pt. states, "no" repeatedly when OT and PT ask him about getting out of bed or showering. Appearance Spouse present for family training. Spouse encourages pt. to shower. Pt. adamant "no." Mental Status/Objective Patient Orientation: Unable to Assess Functional [place] Measure 0=Not Assessed/NA 4=Minimal Assistance 1=Total Assistance 5=Supervision or Setup 2=Maximal Assistance 6=Modified [place] 3=Moderate Assistance 7=Complete [place] ADL-Treatment Functional [place] Measure 0=Not Assessed/NA 4=Minimal Assistance 1=Total Assistance 5=Supervision or Setup 2=Maximal Assistance 6=Modified [place] 3=Moderate Assistance 7=Complete IndependenceIRFPAI Quality Coding Scale 6 Independent with activity with or without an assistive device 5 Patient requires set up or clean up by helper. Patient completes activity by themselves 4 Supervision or touching assist (CGA). [place] provide cues , steadying assist 3 The helper provides less than half the effort to complete the activity 2 The helper provides more than half the effort to complete the activity 1 Dependent. The helper does all the effort to complete an activity 7 Patient refused to complete or attempt activity 9 The patient did not perform the activity before the current illness or injury 88 Not attempted due to Medical conditions or safety concerns Grooming (FIM): 2 (Pt. will swipe face one time with washcloth, but then does not do anymore.) Oral Hygiene (QC): 7 Bathing (FIM): 1 (Pt. does not initiate or assist at all with bed bath. OT/PT facilitate rolling, washing, and positioning.) Shower/Bathe Self (QC): 1 Upper Body (FIM): 1 Upper Body Dressing (QC): 1 Lower Body Dressing (FIM): 1 Lower Body Dressing (QC): 1 On/Off Footwear (QC): 1 Toileting (FIM): 1 Toileting Hygiene (QC): 1 Transfers (B, C, W/C) (FIM): 1 Toilet/Commode Transfer (FIM): 1 Toilet Transfer (QC): 7 Other Treatment PT/OT co-treat due to pt's need for skilled treatment. Spouse in room for family training. Pt. refused to shower, or to transfer to chair via brayan lift. Spouse states that she does know how to use the brayan, as she was using it in [place] before this placement. Spouse states that she either has everything she needs, or is in process of getting everything she needs for safe return home. Spouse did observe pt. while OT/PT completed all ADLs at bed level. OT facilitated ADLs and encouragement for him to complete while PT facilitated transfers and mobility. Pt. re-positioned in bed to comfort level after ADLs, and declined all efforts or attempts to get out of bed. Education OT Patient Education: Correct positioning, Instructions to caregiver, Modified ADL techniques, Progress toward Goal/Update tx plan, Purpose of tx/functional activities, Reviewed precautions, Rehab process, Transfer techniques Teaching Recipient: Patient, Primary Caregiver Teaching Methods: Demonstration, Discussion Response to Teaching: Unable to Return Demonstration OT Short Term Goals Short Term Goals Time Frame: Oct 22, 2017 Eating(FIM): 1 Grooming(FIM): 2 Bathing(FIM): 2 Upper Body Dressing(FIM): 2 Lower Body Dressing(FIM): 2 Toileting(FIM): 2 Transfers (B,C,W/C) (FIM): 2 Toilet/Commode Transfer(FIM): 2 Additional Short Term Goals: 1-Demonstrate ADL Tasks, 2-Verbalize Understanding , 3-ImproveStrength/Zunilda 1=Demonstrate adherence to instructed precautions during ADL tasks. 2=Patient will verbalize/demonstrate understanding of assistive devices/ modifications for ADL. 3=Patient will improve strength/tolerance for activity to enable patient to perform ADL's. OT Boring Machine Operator Helper Goals Boring Machine Operator Helper Goals Time Frame: Nov 05, 2017 Eating (FIM): 1 Groomin Oral Hygiene (QC): 3 Bathing(FIM): 3 Shower/Bathe Self (QC): 3 Upper Body Dressing(FIM): 3 Upper Body Dressing (QC): 3 Lower Body Dressing(FIM): 3 Lower Body Dressing (QC): 3 On/Off Footwear (QC): 3 Toileting(FIM): 3 Toileting Hygiene (QC): 3 Transfers (B,C,W/C) (FIM): 3 Toilet/Commode Transfer(FIM): 3 Toilet/Commode Transfer (QC): 3 Shower Transfer(FIM): 3 Comprehension(FIM): 2 (MET (4)) Expression (FIM): 2 (NOT MET (1)) Social Interaction(FIM): 3 (NOT MET (1)) Problem Solving(FIM): 2 (NOT MET (1)) Memory(FIM): 2 (NOT MET (1)) Additional Goals: 1-Demonstrate ADL Tasks, 2-Verbalize Understanding, 3- ImproveStrength/Zunilda 1=Demonstrate adherence to instructed precautions during ADL tasks. 2=Patient will verbalize/demonstrate understanding of assistive devices/ modifications for ADL. 3=Patient will improve strength/tolerance for activity to enable patient to perform ADL's. OT Education/Plan Problem List/Assessment Assessment: Decreased Activ Tolerance, Decreased Safety Aware, Decreased UE Strength, Dependent Transfers, Impaired Bed Mobility, Impaired Cognition, Impaired Coordination, Impaired Funct Balance, Impaired I ADL's, Impaired Self- Care Skills, Restricted Funct UE ROM, Visual-Perceptual Deficit Discharge Recommendations Plan/Recommendations: Continue POC Therapy D/C Recommendations: Bath Aide, Home w/ Family Support, Occupational Therapy Home Care Treatment Plan/Plan of Care Treatment,Training & Education: Yes Patient would benefit from OT for education, treatment and training to promote independence in ADL's, mobility, safety and/or upper extremity function for ADL' s. Plan of Care: ADL Retraining, Functional Mobility, UE Funct Exercise/Act Treatment Duration: Nov 05, 2017 Frequency: At least 5 of 7 days/Wk (IRF) Estimated Hrs Per Day: 1.5 hours per day Agreement: Yes Rehab Potential: Guarded Time/GCodes Start Time: 09:00 Stop Time: 10:00 Total Time Billed (hr/min): 60 Billed Treatment Time 1, ADL x 4 DELONTE FENTON OT Oct 24, 2017 12:53
--- NOTE | 2017-10-24 13:31 | Physical Therapy Daily Note ---
PT Daily Note-Current Subjective Patient in bed pre tx, agrees to PT, will perform LE ROM/stretching, no complains of pain at rest. Appearance Patient in bed post tx with nurse call, in room, tray, all needs met. Family training with for LE ROM/stretching. Mental Status Patient Orientation: Person, Unable to Assess, Non-Verbal/Aphasic Attachments: PEG Tube Transfers Functional [place] Measure 0=Not Assessed/NA 4=Minimal Assistance 1=Total Assistance 5=Supervision or Setup 2=Maximal Assistance 6=Modified [place] 3=Moderate Assistance 7=Complete IndependenceIRFPAI Quality Coding Scale 6 Independent with activity with or without an assistive device 5 Patient requires set up or clean up by helper. Patient completes activity by themselves 4 Supervision or touching assist (CGA). [place] provide cues , steadying assist 3 The helper provides less than half the effort to complete the activity 2 The helper provides more than half the effort to complete the activity 1 Dependent. The helper does all the effort to complete an activity 7 Patient refused to complete or attempt activity 9 The patient did not perform the activity before the current illness or injury 88 Not attempted due to Medical conditions or safety concerns Treatments LE ROM/stretching in all planes. educated on how to perform this at home. Assessment Current Status: Poor Progress No change in mobility, left knee flexion contracture. PT Short Term Goals Short Term Goals Time Frame: Oct 22, 2017 Transfers (B,C,W/C) (FIM): 2 Wheelchair (FIM): 2 PT Tear Down Man Goals Prison Goals PT Prison Goals Time Frame: Nov 05, 2017 Transfers (B,C,W/C) (FIM): 3 Sit to Lying (QC): 3 Lying-Sitting on Side/Bed(QC): 3 Sit to Stand (QC): 3 Rollin Roll Left to Right (QC): 3 Chair/Kfu-vp-Mofne Xfer(QC): 3 Car Transfer (QC): 3 Does the Patient Walk: No and Walking Goal IS indicated Gait (FIM): 2 Gait distance (FIM): 1=up to 49 ft Distance: steps only Walk 10 feet (QC): 2 Walk 10ft-Uneven Surface(QC): 88 Walk 50ft with 2 Turns (QC): 88 Walk 150 ft (QC): 88 Gait Level of Assist: 2 Does the Pt use WC or Scooter?: Yes Wheelchair (FIM): 2 Wheelchair distance (FIM): 0=305-90 ft Distance: 50 ft Wheelchair Level of Assist: 4 Wheel 50 feet with 2 turns (QC: 4 Stairs (FIM): 1 1 Step (curb) (QC): 1 4 Steps (QC): 1 12 Steps (QC): 1 Picking up an Object (QC): 1 PT Plan Problem List Problem List: Activity Tolerance, Functional Strength, Safety, Balance, Gait, Transfer, Bed Mobility, ROM Treatment/Plan Treatment Plan: Continue Plan of Care Treatment Plan: Bed Mobility, Education, Functional Activity Zunilda, Functional Strength, Group Therapy, Gait, Safety, Therapeutic Exercise, Transfers Treatment Duration: Nov 05, 2017 Frequency: At least 5 of 7 days/Wk (IRF) Estimated Hrs Per Day: 1.5 hours per day Patient and/or Family Agrees t: Yes Safety Risks/Education Patient Education: Correct Positioning, Safety Issues Teaching Recipient: Patient, Significant Other Teaching Methods: Demonstration, Discussion Response to Teaching: Verbalize Understanding Time/GCodes Time In: 1310 Time Out: 1325 Total Billed Treatment Time: 15 Total Billed Treatment 1 EX 15' ANA ALVAREZ PT Oct 24, 2017 13:31
--- NOTE | 2017-10-24 14:19 | Occupational Ther Daily Note ---
OT Current Status-Daily Note Subjective Pt. in bed asleep. Did wake up and talk with therapist. Appearance Pt. in bed. OT and home health coordinator came into room to talk with pt. regarding home care and discharge. Mental Status/Objective Patient Orientation: Person, Eyes Open Functional [place] Measure 0=Not Assessed/NA 4=Minimal Assistance 1=Total Assistance 5=Supervision or Setup 2=Maximal Assistance 6=Modified [place] 3=Moderate Assistance 7=Complete [place] ADL-Treatment Functional [place] Measure 0=Not Assessed/NA 4=Minimal Assistance 1=Total Assistance 5=Supervision or Setup 2=Maximal Assistance 6=Modified [place] 3=Moderate Assistance 7=Complete IndependenceIRFPAI Quality Coding Scale 6 Independent with activity with or without an assistive device 5 Patient requires set up or clean up by helper. Patient completes activity by themselves 4 Supervision or touching assist (CGA). [place] provide cues , steadying assist 3 The helper provides less than half the effort to complete the activity 2 The helper provides more than half the effort to complete the activity 1 Dependent. The helper does all the effort to complete an activity 7 Patient refused to complete or attempt activity 9 The patient did not perform the activity before the current illness or injury 88 Not attempted due to Medical conditions or safety concerns Other Treatment OT and home health coordinator went into room. Spoke with pt. regarding home health set up and pt. discharging home. Pt. verbalizes understanding. After home health coordinator left room, pt. participated in UE ROM tasks with OT assist. Pt. able to move left UE ROM to approximately 90 degrees in supine position. OT assisted UE into full ROM wfl. Completed elbow flexion as well x 10 reps. OT facilitated right UE PROM in elbow and shoulder flexion x 10 reps. All needs met. Education OT Patient Education: Correct positioning, Progress toward Goal/Update tx plan , Purpose of tx/functional activities, Reviewed precautions, Rehab process Teaching Recipient: Patient Teaching Methods: Demonstration Response to Teaching: Verbalize Understanding, Return Demonstration OT Short Term Goals Short Term Goals Time Frame: Oct 22, 2017 Eating(FIM): 1 Grooming(FIM): 2 Bathing(FIM): 2 Upper Body Dressing(FIM): 2 Lower Body Dressing(FIM): 2 Toileting(FIM): 2 Transfers (B,C,W/C) (FIM): 2 Toilet/Commode Transfer(FIM): 2 Additional Short Term Goals: 1-Demonstrate ADL Tasks, 2-Verbalize Understanding , 3-ImproveStrength/Zunilda 1=Demonstrate adherence to instructed precautions during ADL tasks. 2=Patient will verbalize/demonstrate understanding of assistive devices/ modifications for ADL. 3=Patient will improve strength/tolerance for activity to enable patient to perform ADL's. OT [place] Sewer Goals Longterm Goals Time Frame: Nov 05, 2017 Eating (FIM): 1 Groomin Oral Hygiene (QC): 3 Bathing(FIM): 3 Shower/Bathe Self (QC): 3 Upper Body Dressing(FIM): 3 Upper Body Dressing (QC): 3 Lower Body Dressing(FIM): 3 Lower Body Dressing (QC): 3 On/Off Footwear (QC): 3 Toileting(FIM): 3 Toileting Hygiene (QC): 3 Transfers (B,C,W/C) (FIM): 3 Toilet/Commode Transfer(FIM): 3 Toilet/Commode Transfer (QC): 3 Shower Transfer(FIM): 3 Comprehension(FIM): 2 (MET (4)) Expression (FIM): 2 (NOT MET (1)) Social Interaction(FIM): 3 (NOT MET (1)) Problem Solving(FIM): 2 (NOT MET (1)) Memory(FIM): 2 (NOT MET (1)) Additional Goals: 1-Demonstrate ADL Tasks, 2-Verbalize Understanding, 3- ImproveStrength/Zunilda 1=Demonstrate adherence to instructed precautions during ADL tasks. 2=Patient will verbalize/demonstrate understanding of assistive devices/ modifications for ADL. 3=Patient will improve strength/tolerance for activity to enable patient to perform ADL's. OT Education/Plan Problem List/Assessment Assessment: Decreased Activ Tolerance, Decreased UE Strength, Dependent Transfers, Impaired Bed Mobility, Impaired Cognition, Impaired Coordination, Impaired Funct Balance, Impaired I ADL's, Impaired Self-Care Skills, Restricted Funct UE ROM, Visual-Perceptual Deficit Discharge Recommendations Plan/Recommendations: Continue POC Therapy D/C Recommendations: Home w/ Family Support, Occupational Therapy Home Care, Scheduled Assistance Comment laboratory worker working on getting pt. needed equipment. Treatment Plan/Plan of Care Treatment,Training & Education: Yes Patient would benefit from OT for education, treatment and training to promote independence in ADL's, mobility, safety and/or upper extremity function for ADL' s. Plan of Care: ADL Retraining, Functional Mobility, UE Funct Exercise/Act Treatment Duration: Nov 05, 2017 Frequency: At least 5 of 7 days/Wk (IRF) Estimated Hrs Per Day: 1.5 hours per day Agreement: Yes Rehab Potential: Guarded Time/GCodes Start Time: 13:40 Stop Time: 13:55 Total Time Billed (hr/min): 15 Billed Treatment Time 1, Ex DELONTE FENTON OT Oct 24, 2017 14:19
[2017-10-24] MEDS ORDERED: CITA20TA9 GT (14:21)
[2017-10-24] MEDS ORDERED: BUDE0.5A INH (15:43)
[2017-10-24] MEDS ORDERED: IPRA3AMP31 INH ×2 (15:43)
[2017-10-24] MEDS ORDERED: RANI150T46 PO (17:04)
[2017-10-24] MEDS ORDERED: METO100T12 GT (17:04)
[2017-10-24] MEDS ORDERED: ASPI325T32 GT (17:04)
[2017-10-24] MEDS ORDERED: ATOR40TA70 GT (17:04)
[2017-10-24] MEDS ORDERED: ALLO100T GT (17:04)
[2017-10-24] MEDS ORDERED: FINA5TAB6 GT (17:04)
[2017-10-24] MEDS ORDERED: TAMS0.4C2 GT (17:04)
[2017-10-24] MEDS ORDERED: SENN-145 GT (17:04)
[2017-10-24] MEDS ORDERED: LEVE100S GT (17:04)
[2017-10-24] MEDS ORDERED: BETH25TA GT (17:04)
[2017-10-24 18:00] VITALS: BP 169/81
[2017-10-24] MEDS: ATORVASTATIN 40 MG (LIPITOR) TABLET GT SCH (20:54)
[2017-10-24] MEDS: POLYETHYLENE GLYCOL 17 GM (MIRALAX) PACK PO SCH (20:54)
[2017-10-24] MEDS: traZODone 50 MG (DESYREL) TAB PO SCH (20:54)
[2017-10-25 05:35] VITALS: BP 140/83
[2017-10-25] MEDS: BETHANECHOL 25 MG (URECHOLINE) TAB GT SCH ×2 (06:21→11:36)
[2017-10-25] MEDS: RT-BUDESONIDE NEBS 0.5 MG/2ML (PULMICORT) AMP INH SCH (06:39)
[2017-10-25] MEDS: RT-ALBUTEROL/IPRATROPIUM 3 ML (DUONEB) VIAL INH SCH ×2 (06:39→11:25)
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
--- NOTE | 2017-10-25 07:53 | PM & R (SOAP) Progress Note ---
Subjective This was a face to face visit with the patient. Date Seen by Provider: Oct 25, 2017 Time Seen by Provider: 07:35 Subjective/Events-last exam Patient was seen in his room this AM Discussed case with RN last evening DR Juliann MEADOWS has arranged for SVN machine and treatments for home Current meds reviewed.Family training bernadette. Objective Physician Exam Last Set of Vital Signs Vital Signs Date Time Temp Pulse Resp B/P (MAP) Pulse Ox O2 Delivery O2 Flow Rate FiO2 10/25/17 06:40 96 Trach Collar 6.00 28 10/25/17 05:35 97.8 60 17 140/83 (102) Capillary Refill : I&O Intake and Output 10/25/17 00:00 Intake Total 400 ml Balance 400 ml Intake Oral 150 ml Other 250 ml # Urine Diapers 6 # Bowel Movements 1 General: Alert, Cooperative, No Acute Distress HEENT: Atraumatic, PERRLA, EOMI, Mucous Memb Moist/[place] Neck: Supple, No JVD, Other ( Trach in place with speaking valve in place) Lungs: Clear to Auscultation Heart: Regular Rate Abdomen: Normal Bowel Sounds, Soft, No Tenderness, Other (G TUBE in place) Extremities: No Edema Neuro: Other (RT HP with increased tone RLE Expressive aphasia Dysarthria Dysphagia cognitive deficts able to follow simple 1 step commands) Assessment/Plan Assessment and Plan Home today with spouse and HHC F/U with DR Suggs and Juliann See orders. (1) CVA (cerebral vascular accident) Status: Acute Co-Morbidities that are continuing to impact the rehab process: (include details ) WILNER DANIELLE MD Oct 25, 2017 07:53
[2017-10-25] MEDS: LEVETIRACETAM 500 MG/ 5 ML UDC ORAL SOLN (KEPPRA) GT SCH (08:15)
[2017-10-25] MEDS: meTOprolol TARTRATE 50 MG (LOPRESSOR) TAB GT SCH (08:16)
[2017-10-25] MEDS: FAMOTIDINE 20 MG (PEPCID) TABLET GT SCH (08:16)
[2017-10-25] MEDS: ASPIRIN 325 MG (5 GR) TABLET GT SCH (08:16)
[2017-10-25] MEDS: ALLOPURINOL 100 MG (ZYLOPRIM) TAB GT SCH ×2 (08:16→11:36)
[2017-10-25] MEDS: SENNA W/DOCUSATE (SENOKOT S) TABLET GT SCH (08:16)
--- NOTE | 2017-10-25 10:50 | D/C HH Face to Face Order ---
D/C Face to Face Orders Instructions for Patient Patient Instructions/FollowUp: Dr. Suggs Physician to follow Patient: Dr. Suggs Discharge Diet for Home: Dysphagia, Tube Feeding (Jevity 1.5@ 100ml/hr nocturnally), other diet (pureed with nectar thickened liquids) Patient Data-Allergies,Ht & Wt Patient Allergies: Coded Allergies: No Known Drug Allergies (Unverified , 09/09/10) Height (Feet): 6 Height (Inches): 2.00 Weight (Pounds): 226 Weight (Ounces): 6.4 Home Health Need/Face to Face Date of Face to Face: Oct 25, 2017 Clinical Findings: Generalized weakness and fatigue, Instability, Muscle weakness I have seen Pt [id number]: Yes Discharged To: Home Diagnosis/Conditions: Hemiplega following CVA affecting R dominant side Patient is Homebound due to: CognItive deficits, Bailey fall risk due to instabilty, Muscle weakness Homebound Status Due to the above stated illness, injury or surgical procedure (medical condition or diagnosis) and associated clinical findings, the patient is homebound because of his/her inability to leave home except with aid of a supportive device and/or person AND leaving the home requires a considerable and taxing effort or is medically contraindicated. Pt req the following assistanc: Aid of another person, Wheelchair Home Health Nursing Orders Home Health Services Order: Nursing Services, [employer] Technician-Evaluate & Treat, Physical Therapy-Evaluate & Treat, Speech Language-Evaluate & Treat Nocturnal tube feeding to begin at 2000. Jevity 1.5 at 100ml/hr until 0600am with water flush 250ml q4hrs. Peg site management. Nursing for education and training on tube feedings. RN to complete education and training on day of discharge (10/25/17) in evening for feeding administration. Education and training on trach care, disease management and medication management. Nursing to complete weekly weights and monitor need to adjust tube feeding, with goal to increase oral intake and decrease tube feeding. Toston thickened liquids for pureed diet. Home Health Infusion Therapy Type of Feeding Tube: PEJG Formula: Glucerna 1 (5 cans daily, nocturnally) Therapy Orders Therapy Orders: OT (must have SN or PT order), Physical Therapy, Speech Language Pathology Therapy Specific Orders: Eval assistive deivces, Teach strategies/cognitive deficits, Teach enviro modifications/safety, Eval & treat dysphagia, Gait training, Increase strength/endurance, Restore ROM Certify Stmt I certify that this patient is under my care and that I, a nurse practitioner or a physician; a dietitian assistant working with me, had a face to face encounter that - meets the physician face to face encounter requirements with this patient as dated. I personally scribed for WILNER DANIELLE MD) on 10/22/17 at 12:15. Electronically submitted by Brooklyn Stanley ([id number]). I personally scribed for WILNER DANIELLE MD) on 10/23/17 at 09:32. Electronically submitted by Brooklyn Stanley ([id number]). I personally scribed for IWLNER DANIELLE MD) on 10/24/17 at 10:31. Electronically submitted by Brooklyn Stanley ([id number]). I personally scribed for WILNER DANIELLE MD) on 10/25/17 at 10:50. Electronically submitted by Brooklyn Stanley ([id number]). WILNER DANIELLE MD Oct 22, 2017 12:10
--- NOTE | 2017-10-25 12:09 | Therapy Team Discharge Summary ---
Therapy Discharge Summary Discharge Recommendations Date of Discharge 10-25-17 Therapy D/C Recommendations: 24 hr Supervision, Home w/ Family Support, Occupational Therapy Home Care, Scheduled Assistance Occupational Therapy Pt. has been seen in conjunction with OT to increase overall strength and independence. Unfortunately, pt. has not met goals, as pt. has had difficulty with motivation and being encouraged. Pt. required dependent assist with all tasks. Pt. is discharging home today with spouse. Spouse has all needed equipment, including brayan lift, wheelchair, and other needs met. Spouse has also been trained as to care of pt. Would recommend home health OT. Decreased Activ Tolerance, Decreased UE Strength, Dependent Transfers, Impaired Bed Mobility, Impaired Cognition, Impaired Coordination, Impaired Funct Balance , Impaired I ADL's, Impaired Self-Care Skills, Restricted Funct UE ROM, Visual- Perceptual Deficit PT [employer] Goals [facility] Goals PT [employer]cher Goals Time Frame: Nov 05, 2017 Transfers (B,C,W/C) (FIM): 3 Roll Left to Right (QC): 3 Sit to Lying (QC): 3 Lying-Sitting on Side/Bed(QC): 3 Sit to Stand (QC): 3 Chair/Sdi-dx-Eckde Xfer(QC): 3 Car Transfer (QC): 3 Does the Patient Walk: No and Walking Goal IS indicated Gait (FIM): 2 Gait distance (FIM): 1=up to 49 ft Distance: steps only Walk 10 feet (QC): 2 Walk 10ft-Uneven Surface(QC): 88 Walk 50ft with 2 Turns (QC): 88 Walk 150 ft (QC): 88 Gait Level of Assist: 2 Does the Pt use WC or Scooter?: Yes Wheelchair (FIM): 2 Wheelchair distance (FIM): 1=153-94 ft Distance: 50 ft Wheelchair Level of Assist: 4 Wheel 50 feet with 2 turns (QC: 4 Stairs (FIM): 1 1 Step (curb) (QC): 1 4 Steps (QC): 1 12 Steps (QC): 1 Picking up an Object (QC): 1 OT Box Shook Patcher Goals [facility] Goals Time Frame: Nov 05, 2017 Eating (FIM): 1 (met) Oral Hygiene (QC): 3 (not met) Grooming(FIM): 3 (not met) Bathing(FIM): 3 (not met) Shower/Bathe Self (QC): 3 (not met) Upper Body Dressing(FIM): 3 (not met) Upper Body Dressing (QC): 3 (not met) Lower Body Dressing(FIM): 3 (not met) Lower Body Dressing (QC): 3 (not met) On/Off Footwear (QC): 3 (not met) Toileting(FIM): 3 (not met) Toileting Hygiene (QC): 3 (not met) Transfers (B,C,W/C) (FIM): 3 (not met) Toilet/Commode Transfer(FIM): 3 (not met) Toilet/Commode Transfer (QC): 3 (not met) Shower Transfer(FIM): 3 (not met) Comprehension(FIM): 2 (MET (4)) Expression (FIM): 2 (NOT MET (1)) Social Interaction(FIM): 3 (NOT MET (1)) Problem Solving(FIM): 2 (NOT MET (1)) Memory(FIM): 2 (NOT MET (1)) Additional Goals: 1-Demonstrate ADL Tasks, 2-Verbalize Understanding, 3- ImproveStrength/Zunilda 1=Demonstrate adherence to instructed precautions during ADL tasks. 2=Patient will verbalize/demonstrate understanding of assistive devices/ modifications for ADL. 3=Patient will improve strength/tolerance for activity to enable patient to perform ADL's. Speech [facility] Goals [facility] Goals 1. The patient will tolerate the least restrictive consistency (trials and diet ) without signs/symptoms of aspiration or laryngeal penetration. MET 2. The patient will display improved cognition linguistic function for increased function and safety. NOT MET Time Frame: Four Weeks Comprehension: 2 (MET (4)) Expression: 2 (NOT MET (1)) Social Interaction: 3 (NOT MET (1)) Problem Solvin (NOT MET (1)) Memory: 2 (NOT MET (1)) DELONTE FENTON OT Oct 25, 2017 12:08
[2017-10-25 14:19] VITALS: BP 140/83
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
== END 2017-10-25 14:30 | disposition home health service (06) | DRG 57 ==
PROVIDERS: ADMIT Physical Medicine & Rehabilitation; ATTEND Physical Medicine & Rehabilitation
DX: I69.351 Hemiplegia and hemiparesis following cerebral infarction affecting right dominant side (principal); I69.391 Dysphagia following cerebral infarction; I69.315 Cognitive social or emotional deficit following cerebral infarction; I69.320 Aphasia following cerebral infarction; I69.322 Dysarthria following cerebral infarction; J38.01 Paralysis of vocal cords and larynx, unilateral; Z93.0 Tracheostomy status; Z93.1 Gastrostomy status; M17.0 Bilateral primary osteoarthritis of knee; M10.9 Gout, unspecified; N40.1 Benign prostatic hyperplasia with lower urinary tract symptoms; R32 Unspecified urinary incontinence; R15.9 Full incontinence of feces; F32.9 Major depressive disorder, single episode, unspecified; H53.2 Diplopia; J30.2 Other seasonal allergic rhinitis; R09.02 Hypoxemia; S11.9 Open wound of unspecified part of neck; S12.000S Unspecified displaced fracture of first cervical vertebra, sequela; S12.100S Unspecified displaced fracture of second cervical vertebra, sequela; Y24.9XXS Unspecified firearm discharge, undetermined intent, sequela; Z87.891 Personal history of nicotine dependence; I10 Essential (primary) hypertension; R00.1 Bradycardia, unspecified
CPT/HCPCS: 36415; 71045; 74230; 80053; 81000; 83735; 83880; 84100; 85025; 94640; 94760; 94799

== ENCOUNTER 2018-01-10 14:58 | Outpatient (RCR) | payer MEDICARE ==
[~2018-01-10 14:58] MED LIST changes: +ACET325T38 GT; +ACET325T38 PO; +ALLO100T GT; +ASPI325T32 GT; +ATOR40TA70 GT; +BETH25TA GT; +BISA10SU6 RC; +BUDE0.5A INH; +CITA20TA9 GT; +DICL100G18 TOP; +FINA5TAB6 GT; +GUAI-557 GT; +IPRA3AMP31 INH; +LACT-72 GT; +LACT1CAP39 PEG; +LEVE100S GT; +MELA3TAB PO; +METO100T12 GT; +NAPH15DR6 OS; +RANI150T46 PO; +SENN-145 GT; +TAMS0.4C2 GT
== END 2018-01-13 | disposition home or self-care (01) ==
PROVIDERS: ATTEND Family Medicine
DX: I69.351 Hemiplegia and hemiparesis following cerebral infarction affecting right dominant side (principal); I69.318 Other symptoms and signs involving cognitive functions following cerebral infarction; I10 Essential (primary) hypertension; F32.9 Major depressive disorder, single episode, unspecified

== ENCOUNTER 2018-01-25 13:06 | Outpatient (RCR) | payer MEDICARE | END 2018-01-25 14:02 | disposition home or self-care (01) | PROVIDERS: ATTEND Family Medicine | DX: I69.351 Hemiplegia and hemiparesis following cerebral infarction affecting right dominant side (principal); I69.318 Other symptoms and signs involving cognitive functions following cerebral infarction; I10 Essential (primary) hypertension; F32.9 Major depressive disorder, single episode, unspecified ==

== ENCOUNTER → 2018-01-25 | Outpatient (CLI) | payer MEDICARE ==
--- NOTE | 2018-01-25 09:11 | Diagnostic Imaging Report ---
EXAM: ABDOMEN COMPLETE ULTRASOUND DATE: January 25, 2018 COMPARISON: None available. INDICATION: 67-year-old male, inguinal lymph nodes bilaterally. PROCEDURE: Two-dimensional ultrasound examination of the abdomen is performed. FINDINGS: There are significant limitations of the exam relating to difficulty positioning patient. Liver: There is not a provided image 12 demonstrating both the kidney and liver are within the same image to optimally assess overall liver echogenicity and to evaluate for potential fatty infiltration of the liver. The outer liver contours are not grossly nodular. There is no sonographically demonstrated solid or cystic liver mass. Bile ducts and gallbladder: There is no pericholecystic fluid, gallbladder wall thickening or gallstones. The gallbladder wall measures 0.2 cm. There is no intrahepatic bile duct dilation. The common bile duct is not well seen. Spleen: The spleen is not well demonstrated. Right kidney: The right kidney is of normal size and contour with good corticomedullary differentiation. There are no shadowing calculi or cortical deforming solid or cystic masses. No hydronephrosis. The right kidney measures 10.7 cm x 5.2 cm x 5.4 cm. Left kidney: The left kidney is of normal size and contour with good corticomedullary differentiation. There are no shadowing calculi or cortical deforming solid or cystic masses. No hydronephrosis. The left kidney measures 11.5 cm x 6.1 cm x 6.9 cm. Pancreas: The pancreas is not well seen. The aorta and inferior vena cava are not well demonstrated. IMPRESSION: 1. Significant limitations of the exam relating to difficulty positioning patient. 2. No sonographically demonstrated liver lesion or visualized concerning masses within the kidneys. 3. The spleen is not well demonstrated. The pancreas is not well seen. Significant additional limitations of the exam. 4. Unremarkable appearance of the gallbladder. Dictated by: Dictated on workstation # [id number]
--- NOTE | 2018-01-25 10:16 | Diagnostic Imaging Report ---
Scrotal ultrasound. INDICATION: Bilateral groin nodules. There are no prior studies available for comparison. Spectral and color flow imaging of the testicles was performed. FINDINGS: Both testicles were identified. Right testicle measures 4.1 x 2.3 x 2.6 cm while left testicle is estimated to be 4.0 x 2.1 x 2.4 CM. There is no evidence for solid testicular mass and there is no sign of torsion. There is no evidence for epididymitis either. There is no significant hydrocele formation evident and there is no sign of varicocele. Reportedly, the patient has suprapubic nodes bilaterally. The ultrasound examination of each inguinal region does show a small 0.7 x 0.9 x 0.4 CM node in the left inguinal canal region. There were no lymph nodes evident in the right inguinal region. IMPRESSION: 1. There is no evidence for solid testicular mass and there is no sign of torsion. 2. There is a subcentimeter lymph node in the left inguinal region. No other lymph nodes are identified. Dictated by: Dictated on workstation # [id number]
== END ==
LOC: RAD 08:01
PROVIDERS: ATTEND Family Medicine
DX: R19.09 Other intra-abdominal and pelvic swelling, mass and lump (principal); R10.30 Lower abdominal pain, unspecified
CPT/HCPCS: 76700; 76870

== ENCOUNTER → 2018-05-03 | Outpatient (CLI) | payer MEDICARE ==
--- NOTE | 2018-05-03 16:33 | Diagnostic Imaging Report ---
PROCEDURE: CT abdomen and pelvis without contrast. TECHNIQUE: Multiple contiguous axial images were obtained through the abdomen and pelvis without the use of intravenous contrast. INDICATION: Lower abdominal pain. FINDINGS: There is coronary atherosclerosis. There is some atelectasis at both lung bases. Liver appears normal. Gallbladder is present. There is a gastrostomy tube in place. Pancreas appears normal. Spleen is not enlarged. Adrenals are normal. There is a calculus in the upper pole calyx of the right kidney. The stone measures 7 mm in diameter. Ureters are not dilated. Appendix is normal. Small bowel is not dilated. There is some diverticulosis of the colon but no evidence of diverticulitis. There appears to be a rectal fecal impaction. Urinary bladder appears normal. IMPRESSION: Fecal stasis with rectal fecal impaction. Atherosclerosis. Right nephrolithiasis. Dictated by: Dictated on workstation # [id number]
== END ==
LOC: RAD 15:10
PROVIDERS: ATTEND Family Medicine
DX: K56.41 Fecal impaction (principal); N20.0 Calculus of kidney; I25.10 Atherosclerotic heart disease of native coronary artery without angina pectoris; Z93.1 Gastrostomy status
CPT/HCPCS: 74176

== ENCOUNTER → 2018-06-05 | Outpatient (CLI) | payer MEDICARE ==
[~2018-06-05] MED LIST changes: -ACET325T38 GT; -ACET325T38 PO; -ALLO100T GT; -ALLP100T PO; -ASPI325T32 GT; -ATEN100T88 PO; -ATOR40TA70 GT; +BARIUM SUSPENSION 105% (LIQUID POLIBAR PLUS) 240 ML/DOSE PO ONE; -BETH25TA GT; -BISA10SU6 RC; -BUDE0.5A INH; -CITA20TA9 GT; -DICL100G18 TOP; -FINA5TAB6 GT; -GUAI-557 GT; -HYDR-3454 PO; -IPRA3AMP31 INH; -LACT-72 GT; -LACT1CAP39 PEG; -LEVE100S GT; -MELA3TAB PO; -METO100T12 GT; -NAPH15DR6 OS; -RANI150T46 PO; -SENN-145 GT; -TADA5TAB2 PO; -TAMS0.4C2 GT
--- NOTE | 2018-06-05 14:17 | Diagnostic Imaging Report ---
INDICATION: Patient with previous PEG tube. PEG tube inadvertently pulled out approximately one month ago. There is some leakage from the prior PEG tube site. The study is performed to evaluate for fistulous tract between the skin and the stomach. TECHNIQUE: The patient ingested thick barium and serial spot films and overhead radiographs of the abdomen were obtained at multiple obliquities. Total of 1 minute and 13 seconds of fluoroscopy was also utilized. FINDINGS: The patient's PEG tube site was marked with a BB marker. Svp Group Director radiograph was obtained. Svp Group Director radiograph demonstrates bowel gas pattern to be unremarkable. Postingestion images demonstrate contrast throughout the stomach with prompt emptying into the small bowel loops. Lateral images were obtained postingestion. No abnormal fistulous tract is identified extending from the stomach towards the PEG tube insertion site. Frontal view does suggest a linear tract of contrast arising from the distal stomach towards the midline however this does not extend all the way to the marker BB. In addition, this is not seen on the lateral views. Small bowel loops are unremarkable. IMPRESSION: There may be a short blind-ending tract extending from the distal stomach seen on the frontal projections. No definite communication with the skin entry site is seen. If symptoms persist, perhaps fistulogram with attempt of injection of contrast through the patient's PEG tube skin entry site could be performed to evaluate for communication with hollow viscus. Dictated by: Dictated on workstation # [id number]
== END ==
LOC: RAD 11:02
PROVIDERS: ATTEND Family Medicine
DX: K94.23 Gastrostomy malfunction (principal); R13.10 Dysphagia, unspecified
CPT/HCPCS: 74241

== ENCOUNTER 2020-03-24 17:19 | Inpatient (IN) | payer MEDICARE ==
[~2020-03-24] VITALS: Ht 188 cm; Wt 104.1 kg
[~2020-03-24 17:19] MED LIST changes: +ACET325T38 GT; +ACET325T38 PO; +ALLO100T GT; +ALLP100T PO; +ASPI325T32 GT; +ATEN100T88 PO; +ATOR40TA70 GT; -BARIUM SUSPENSION 105% (LIQUID POLIBAR PLUS) 240 ML/DOSE PO ONE; +BETH25TA GT; +BISA10SU8 RC; +BUDE0.5A INH; +CITA20TA9 GT; +DICL100G18 TOP; +FINA5TAB6 GT; +GUAI-557 GT; +HYDR-3454 PO; +IPRA3AMP31 INH; +LACT-72 GT; +LACT1CAP39 PEG; +LEVE100S GT; +MELA3TAB39 PO; +METO100T12 GT; +NAPH15DR6 OS; +RANI-613 PO; +SENN-145 GT; +TADA5TAB2 PO; +TAMS0.4C2 GT
--- NOTE | 2020-03-24 17:54 | ED General ---
General Stated Complaint: SOB/LOW O2/POSS COVID Source of Information: Caregiver Exam Limitations: Physical Impairments History of Present Illness Date Seen by Provider: Mar 24, 2020 Time Seen by Provider: 17:53 Initial Comments This is a 69-year-old non verbal male with a history of CVA with residual right sided weakness who presents to the ER with his spouse for complaints of diarrhea, shortness of breath and low oxygen saturation at home of 85% on finger probe. States she was COVID positive around March 09, but he tested negative at that time. However expressed concerns that he may have COVID. States symptoms have been intermittent for 3 weeks, but worse since yesterday. Denies fevers, c/o of chills, abdominal pain, chest pain, headaches, difficulty eating. Allergies and Home Medications Allergies Coded Allergies: No Known Drug Allergies (Unverified , 09/09/10) Home Medications Acetaminophen 325 Mg Tablet, 650 MG PO Q6H PRN for PAIN-MILD OR TEMPATURE, (Reported) TAKES 2 (325MG) TABLETS Acetaminophen 325 Mg Tablet, 650 MG GT BID, (Reported) TAKES 2 (325MG) TABLETS Allopurinol 100 Mg Tablet, 100 MG GT TID Prescribed by: STAR RAMIREZ on 10/24/17 170 Aspirin 325 Mg Tablet.dr, 325 MG GT DAILY Prescribed by: STAR RAMIREZ on 10/24/17 170 Atorvastatin Calcium 40 Mg Tablet, 40 MG GT HS Prescribed by: STAR RAMIREZ on 10/24/17 170 Bethanechol Chloride 25 Mg Tablet, 25 MG GT QID Prescribed by: STAR RAMIREZ on 10/24/17 170 Budesonide 0.5 Mg/2 Ml Ampul.neb, 0.5 MG INH RTBID Prescribed by: STAR RAMIREZ on 10/24/17 1543 Citalopram Hydrobromide 20 Mg Tablet, 40 MG GT DAILY Prescribed by: WILNER DANIELLE on 10/24/17 1421 Finasteride 5 Mg Tablet, 5 MG GT DAILY Prescribed by: STAR RAMIREZ on 10/24/17 1704 Guaifenesin/Dextromethorphan 118 Ml Liquid, 10 ML GT Q6H PRN for INCREASED SECRETIONS, (Reported) Ipratropium/Albuterol Sulfate 3 Ml Ampul.neb, 3 ML INH Q2H PRN for SHORTNESS OF BREATH Prescribed by: STAR RAMIREZ on 10/24/17 154 Ipratropium/Albuterol Sulfate 3 Ml Ampul.neb, 3 ML INH RTQID Prescribed by: STAR RAMIREZ on 10/24/171542 Levetiracetam 100 Mg/Ml Solution, 7.5 ML GT BID Prescribed by: STAR RAMIREZ on 10/24/171703 Melatonin 3 Mg Tablet, 6 MG PO HS, (Reported) Metoprolol Tartrate 100 Mg Tablet, 100 MG GT BID HOLD IF SBP LESS THAN 100 OR PULSE LESS THAN 50 Prescribed by: STAR RAMIREZ on 10/24/171703 Naphazoline HCl/Pheniramine 15 Ml Drops, 2 DROPS OS Q6H PRN for LEFT EYE ALLERGIES, (Reported) Ranitidine HCl 150 Mg Tablet, 150 MG PO BID Prescribed by: STAR RAMIREZ on 10/24/171703 Sennosides/Docusate Sodium 1 Each Tablet, 2 TAB GT BID Prescribed by: STAR RAMIREZ on 10/24/171703 Tamsulosin HCl 0.4 Mg Cap.er.24h, 0.4 MG GT DAILY Prescribed by: STAR RAMIREZ on 10/24/171703 Patient Home Medication List Home Medication List Reviewed: Yes Review of Systems Review of Systems Constitutional: see HPI EENTM: no symptoms reported Respiratory: see HPI Cardiovascular: no symptoms reported Gastrointestinal: no symptoms reported Genitourinary: incontinence Musculoskeletal: see HPI Skin: no symptoms reported Psychiatric/Neurological: No Symptoms Reported Hematologic/Lymphatic: No Symptoms Reported Immunological/Allergic: no symptoms reported Past Mvjmqap-Drkzmb-Tzkive Hx Patient Social History Alcohol Beverage of Choice: Beer Former Smoker, Quit: Apr 16, 1989 Recent Foreign Travel: No Contact w/Someone Who Travel: No Recent Hopitalizations: No Seasonal Allergies Seasonal Allergies: Yes Past Medical History Surgeries: Yes (TOOTH EXTRACTION, CYST REMOVED FROM SHOULDER) Respiratory: Yes (Apr 2017) Pneumonia Currently Using CPAP: No Currently Using BIPAP: No Cardiac: No Neurological: Yes Genitourinary: Yes (UTI in past month) Benign Prostatic Hyperpl Gastrointestinal: No Musculoskeletal: Yes (knees) Arthritis Endocrine: No HEENT: Yes Dysphagia, Double Vision Hearing Impairment: Denies Cancer: No Psychosocial: No Sleep Difficulties Integumentary: Yes (dry scalp of head, ears) Blood Disorders: No Family Medical History CAD Over 55 Years Old Physical Exam Vital Signs Vital Signs - First Documented 03/24/20 03/24/20 17:30 18:41 Temp 36.1 Pulse 89 Resp 16 B/P (MAP) 135/86 (102) Pulse Ox 93 O2 Delivery Room Air O2 Flow Rate 2.00 Capillary Refill : Height, Weight, BMI Height: 6'2.00" Weight: 226lbs. 6.4oz. [id number]; 28.0 BMI Method:Estimated General Appearance: No Apparent Distress, WD/WN Eyes: Bilateral Eye Normal Inspection HEENT: PERRL/EOMI, Moist Mucous Membranes Neck: Normal Inspection, Non Tender Respiratory: Lungs Clear, No Respiratory Distress, Decreased Breath Sounds Cardiovascular: Regular Rate, Rhythm, Normal Peripheral Pulses Gastrointestinal: Normal Bowel Sounds, Non Tender, Soft Extremity: Normal Capillary Refill, Normal Inspection; No Normal Range of Motion (Paralysis of RUE) Neurologic/Psychiatric: No Normal Mood/Affect (flat affect ); Aphasia (expressive ), Motor Weakness, Sensory Deficit (Chronic ) Skin: Normal Color, Warm/Dry Focused Exam Lactate Level 03/24/20 18:40: Lactic Acid Level 2.20*H 03/24/20 20:55: Lactic Acid Level 3.64*H 03/24/20 23:12: Lactic Acid Level Laboratory Tests Test 03/24/20 20:55 03/24/20 23:12 Lactic Acid Level 3.64 MMOL/L (0.50-2.00) *H Procedures/Interventions Date of ETT Placement: Apr 03, 2017 Time of ETT Placement: 1300 Progress/Results/Core Measures Suspected Sepsis SIRS Temperature: Pulse: Respiratory Rate: Laboratory Tests 03/24/20 17:55: White Blood Count 13.8H Blood Pressure / Mean: 03/24/20 18:40: Lactic Acid Level 2.20*H 03/24/20 20:55: Lactic Acid Level 3.64*H 03/24/20 23:12: Laboratory Tests 03/24/20 17:55: Platelet Count 388 03/24/20 18:40: Creatinine 0.70, INR Comment 1.2, Total Bilirubin 0.7 Results/Orders Lab Results Laboratory Tests Test 03/24/20 17:55 03/24/20 18:40 129/20 19:55 03/24/20 20:02 Range/Units White Blood Count 13.8 H 4.3-11.0 10^3/uL Red Blood Count 4.64 4.30-5.52 10^6/uL Hemoglobin 14.3 13.3-17.7 g/dL Hematocrit 45 40-54 % Mean Corpuscular Volume 97 80-99 fL Mean Corpuscular Hemoglobin 31 25-34 pg Mean Corpuscular Hemoglobin Concent 32 32-36 g/dL Red Cell Distribution Width 12.6 10.0-14.5 % Platelet Count 388 130-400 10^3/uL Mean Platelet Volume 10.9 9.0-12.2 fL Immature Granulocyte % (Auto) 1 % Neutrophils (%) (Auto) 78 H 42-75 % Lymphocytes (%) (Auto) 16 12-44 % Monocytes (%) (Auto) 5 0-12 % Eosinophils (%) (Auto) 0 0-10 % Basophils (%) (Auto) 0 0-10 % Neutrophils # (Auto) 10.8 H 1.8-7.8 10^3/uL Lymphocytes # (Auto) 2.2 1.0-4.0 10^3/uL Monocytes # (Auto) 0.7 0.0-1.0 10^3/uL Eosinophils # (Auto) 0.0 0.0-0.3 10^3/uL Basophils # (Auto) 0.0 0.0-0.1 10^3/uL Immature Granulocyte # (Auto) 0.1 0.0-0.1 10^3/uL Coronavirus 2019 ([place]) Negative Negative Prothrombin Time 15.2 H 12.2-14.7 SEC INR Comment 1.2 0.8-1.4 Activated Partial Thromboplast Time 37 H 24-35 SEC D-Dimer 4.41 H 0.00-0.49 UG/ML Sodium Level 143 135-145 MMOL/L Potassium Level 3.6 3.6-5.0 MMOL/L Chloride Level 103 98-107 MMOL/L Carbon Dioxide Level 27 21-32 MMOL/L Anion Gap 13 5-14 MMOL/L Blood Urea Nitrogen 13 7-18 MG/DL Creatinine 0.70 0.60-1.30 MG/DL Estimat Glomerular Filtration Rate > 60 BUN/Creatinine Ratio 19 Glucose Level 121 H 70-105 MG/DL Lactic Acid Level 2.20 *H 0.50-2.00 MMOL/L Calcium Level 8.7 8.5-10.1 MG/DL Corrected Calcium 8.9 8.5-10.1 MG/DL Total Bilirubin 0.7 0.1-1.0 MG/DL Aspartate Amino Transf (AST/SGOT) 13 5-34 U/L Alanine Aminotransferase (ALT/SGPT) 9 0-55 U/L Alkaline Phosphatase 99 40-136 U/L Lactate Dehydrogenase 205 125-220 U/L C-Reactive Protein High Sensitivity 17.79 H 0.00-0.50 MG/DL Total Protein 7.6 6.4-8.2 GM/DL Albumin 3.7 3.2-4.5 GM/DL Urine Color YELLOW Urine Clarity CLEAR Urine pH 6.5 5-9 Urine Specific Crane 1.025 H 1.016-1.022 Urine Protein 1+ H NEGATIVE Urine Glucose (UA) NEGATIVE NEGATIVE Urine Ketones TRACE H NEGATIVE Urine Nitrite NEGATIVE NEGATIVE Urine Bilirubin NEGATIVE NEGATIVE Urine Urobilinogen 1.0 < = 1.0 MG/DL Urine Leukocyte Esterase NEGATIVE NEGATIVE Urine RBC (Auto) NEGATIVE NEGATIVE Urine RBC NONE /HPF Urine WBC 0-2 /HPF Urine Squamous Epithelial Cells 0-2 /HPF Urine Crystals NONE /LPF Urine Bacteria NEGATIVE /HPF Urine Casts NONE /LPF Urine Mucus NEGATIVE /LPF Urine Culture Indicated CULTURE PENDING Test 03/24/20 20:55 03/24/20 23:12 Range/Units Lactic Acid Level 3.64 *H 0.50-2.00 MMOL/L Micro Results Microbiology 03/24/20 Influenza Types A,B Antigen ([place]) - Final, Complete My Orders Orders - [employer] Cbc With Automated Diff (03/24/20 17:43) Comprehensive Metabolic Panel (03/24/20 17:43) Fibrin Degradation Products (03/24/20 17:43) Hs C Reactive Protein (03/24/20 17:43) LDH (03/24/20 17:43) Blood Culture (03/24/20 17:43) Ekg Tracing (03/24/20 17:43) Influenza A And B Antigens (03/24/20 17:43) Chest 1 View, Ap/Pa Only (03/24/20 17:43) Covid 19 Inhouse Test (03/24/20 17:43) Urinalysis (03/24/20 17:43) Urine Culture (03/24/20 17:43) Protime With Inr (03/24/20 17:43) Partial Thromboplastin Time (03/24/20 17:43) Ed Iv/Invasive Line Start (03/24/20 17:43) Vital Signs Adult Sepsis Patie Q15M (03/24/20 17:43) O2 (03/24/20 17:43) Lactic Acid Analyzer (03/24/20 17:43) Lactated Ringers (Lr 1000 Ml Iv Solution (03/24/20 19:30) Ceftriaxone For Iv Use (Rocephin For I (03/24/20 20:30) Iohexol Injection (Omnipaque 350 Mg/Ml 1 (03/24/20 21:15) Received Contrast (Hold Metformin- Contr (03/24/20 21:15) Ns (Ivpb) (Sodium Chloride 0.9% Ivpb Bag (03/24/20 21:15) Ct Chest/Abdomen/Pelvis Wo (03/24/20 22:04) Coronavirus Sars-Cov-2 So 2019 (03/24/20 22:37) Lactated Ringers (Lr 1000 Ml Iv Solution (03/24/20 23:46) Medications Given in ED Current Medications Medications Dose Ordered Sig/Bruce Route Start Time Stop Time Status Last Admin Dose Admin Ceftriaxone Sodium 1000 mg/ Sterile Water 10 ml @ 200 mls/hr ONCE ONCE IV 03/24/20 20:30 03/24/20 20:32 DC 03/24/20 21:00 200 MLS/HR Lactated Ringer's 1,000 ml @ 0 mls/hr Q0M ONCE IV 03/24/20 19:30 03/24/20 19:31 DC 03/24/20 19:48 1,000 MLS/HR Lactated Ringer's 1,000 ml @ ud STK-MED ONCE IV 03/24/20 23:46 03/24/20 23:48 DC 03/24/20 23:54 1,000 MLS/HR Vital Signs/I&O 03/24/20 03/24/20 17:30 18:41 Temp 36.1 Pulse 89 Resp 16 B/P (MAP) 135/86 (102) Pulse Ox 93 89 O2 Delivery Room Air Nasal Cannula O2 Flow Rate 2.00 Capillary Refill : Progress Note : Progress Note This is a non verbal patient due to h/o CVA with residual right sided weakness. Based on HPI, initiated COVID and Sepsis workup. Initial lactic >2, orders placed for 1 liter of LR. Ordres placed for Rocephin 1gm IV. Difficulty obtaining IV access. Repeat lactic >3, likely d/t issues with obtaining IV access. Elevated Ddimer >4. Discussed findings with spouse, agreeable with CTa. During CTa, IV access no longer patent, unable to obtain IV access >24g. Will plan for V/Q scan per provider preference in am. Fluids restarted after obtaining IV access. Non contrast CT chest/abd/pelvis ordered. Discussed case with Dr. Suggs, agreed with VQ scan in am d/t difficulty with IV access. Plan: Pneumonia -Rocephin 1gm IV q 24 hours-first dose in ED. -Azithromycin 500mg IV q24 hours -Blood cultures x2 pending -Trend lactic acid, repeat every 4 hours until <2 -LR at 125ml/hr. Received 2 liters in ED. -Turn q2 hours -IS q2 hours while awake -Albuterol inhaler 4 puffs with space every 4 hours PRN -COVID precautions, pending PCR. Rapid negative. 02 PRN to keep oxygen saturation above 94%. Aspiration risk -Feeder -HOB 30 degrees at all times -ST eval -Soft regular diet Pain/fever -Tylenol 650mg rectal suppository q4 hours PRN Nausea/Vomiting -Zofran 4mg IVP q 4 hours PRN VTE -Lovenox 40mg Subcut q24 hours, given first dose now. -Turn q2 hours ECG Initial ECG Impression Date: Mar 24, 2020 Initial ECG Impression Time: 18:13 Initial ECG Rate: 85 Initial ECG Rhythm: Normal Sinus Initial ECG Intervals: Normal Diagnostic Imaging Diagonstic Imaging: Xray Plain Films/CT/US/NM/MRI: chest Comments NAME: MARK BONDS [facility] MED REC#: [id number] PT STATUS: REG ER : 1950 PHYSICIAN: [employer] ADMIT DATE: 03/24/20/ER Draft Date of Exam:03/24/20 CHEST 1 VIEW, AP/PA ONLY INDICATION: Diarrhea and shortness of breath. Comparison made with prior study from October 12, 2017. FINDINGS: There are patchy opacities within the medial aspect of the right lung base. Pneumonia cannot be excluded. Linear density at the left lung base likely reflects atelectasis. There is no significant effusion. There is no pneumothorax. Heart size appears appropriate. Pulmonary vascularity appears within normal limits. IMPRESSION: 1. Patchy alveolar opacities within the medial aspect of the right lung base. While this could reflect a region of atelectasis, pneumonia cannot be excluded. Linear opacities at the left lung base are most compatible with discoid atelectasis. Dictated on workstation # [id number] Dict: 03/24/201912 Trans: 03/24/201915 [id number] Interpreted by: WAYNE FRANKEL MD Electronically signed by: [facility]ra Imaging: CT Plain Films/CT/US/NM/MRI: chest, abdomen, pelvis Comments CT chest impression: 1. Small right pleural effusion. Compressive atelectasis in the right lower lobe and right upper lobe. 2. Airspace opacities within the right lower lobe, which may all represent atelectasis. However, there may be component of infection in the appropriate clinical setting. 3. Aneurysmal thoracic aorta measuring 4.5 cm. 4. Coronary artery and aortic five-year calcifications. CT abdomen pelvis: 1. No acute abnormality. 2. Bilateral inguinal hernias containing fat and a portion of the ilium on the right. Time of Consult: 22:25 Reviewed: Reviewed [facility] Departure Communication (Admissions) Time/Spoke to Admitting Phy: 22:[address] Suggs, agreeable with inpatient admission. Impression Primary Impression: Pneumonia Additional Impression: Suspected COVID-19 virus infection Disposition: ADMITTED INPATIENT Condition: Stable/Unchanged Admissions Decision to Admit Reason: Admit from ER (General) Decision to Admit/Date: Mar 24, 2020 Time/Decision to Admit Time: 22:10 Departure-Patient Inst. Referrals: ALBERTINA SUGGS DO (PCP/Family) Primary Care Physician [employer] Mar 24, 2020 17:54
[2020-03-24 18:06] LABS: BASOPHILS % (AUTO) 0 % (0-10); EOSINOPHILS % (AUTO) 0 % (0-10); HEMATOCRIT 45 % (40-54); HEMOGLOBIN 14.3 g/dL (13.3-17.7); LYMPHOCYTES # (AUTO) 2.2 10^3/uL (1.0-4.0); LYMPHOCYTES % (AUTO) 16 % (12-44); MEAN CORPUSCULAR HEMOGLOBIN 31 pg (25-34); MEAN CORPUSCULAR HGB CONC 32 g/dL (32-36); MEAN CORPUSCULAR VOLUME 97 fL (80-99); MEAN PLATELET VOLUME 10.9 fL (9.0-12.2); MONOCYTES # (AUTO) 0.7 10^3/uL (0.0-1.0); MONOCYTES % (AUTO) 5 % (0-12); NEUTROPHILS # (AUTO) 10.8 10^3/uL (1.8-7.8); NEUTROPHILS % (AUTO) 78 % (42-75); PLATELET COUNT 388 10^3/uL (130-400); WHITE BLOOD COUNT 13.8 10^3/uL (4.3-11.0)
--- NOTE | 2020-03-24 18:24 | NUR ---
LAB IN ROOM AT THIS TIME.
--- NOTE | 2020-03-24 18:25 | NUR ---
DUE TO PT'S CONDITION ALLOWED TO STAY IN ROOM WITH HIM. CORRINE ESCOBAR AND DEVON NOTIFIED ET ARE FINE WITH THIS DECISION.
--- NOTE | 2020-03-24 18:42 | NUR ---
DEVON NOTIFIED THAT OXYGEN WAS PLACED ON THE PT DUE TO PULSE OX BEING 88-90% ROOM AIR.
--- NOTE | 2020-03-24 18:43 | NUR ---
Jill gutierrez in ED - 03/24/20 at 1843 by HLGIBBS pt father at pt bedside at this time.
--- NOTE | 2020-03-24 19:00 | NUR ---
ASSUMED CARE OF THIS PATIENT FROM BELTRAN BURTON.
[2020-03-24 19:13] LABS: ALBUMIN 3.7 GM/DL (3.2-4.5); CHLORIDE 103 MMOL/L (98-107); POTASSIUM 3.6 MMOL/L (3.6-5.0); SODIUM 143 MMOL/L (135-145)
[2020-03-24 19:14] LABS: CALCIUM 8.7 MG/DL (8.5-10.1)
[2020-03-24 19:15] LABS: GLUCOSE 121 MG/DL (70-105)
[2020-03-24 19:16] LABS: TOTAL PROTEIN 7.6 GM/DL (6.4-8.2)
--- NOTE | 2020-03-24 19:16 | Diagnostic Imaging Report ---
INDICATION: Diarrhea and shortness of breath. Comparison made with prior study from October 12, 2017. FINDINGS: There are patchy opacities within the medial aspect of the right lung base. Pneumonia cannot be excluded. Linear density at the left lung base likely reflects atelectasis. There is no significant effusion. There is no pneumothorax. Heart size appears appropriate. Pulmonary vascularity appears within normal limits. IMPRESSION: 1. Patchy alveolar opacities within the medial aspect of the right lung base. While this could reflect a region of atelectasis, pneumonia cannot be excluded. Linear opacities at the left lung base are most compatible with discoid atelectasis. Dictated by: Dictated on workstation # [id number]
[2020-03-24 19:17] LABS: BILIRUBIN,TOTAL 0.7 MG/DL (0.1-1.0); CARBON DIOXIDE 27 MMOL/L (21-32)
[2020-03-24 19:19] LABS: ALKALINE PHOSPHATASE 99 U/L (40-136); FIBRIN DEGRADATION PRODUCTS 4.41 UG/ML (0.00-0.49); GFR ESTIMATED > 60; INR 1.2 (0.8-1.4); PROTHROMBIN TIME PATIENT 15.2 SEC (12.2-14.7)
[2020-03-24 19:20] LABS: BUN/CREATININE RATIO 19
[2020-03-24 19:22] LABS: ALANINE AMINOTRANSFERASE 9 U/L (0-55)
[2020-03-24] MEDS ORDERED: LACTATED RINGERS 1,000 ML IV ONE ×2 (19:30→23:46)
[2020-03-24 20:09] LABS: BILIRUBIN,URINE NEGATIVE (NEGATIVE); CLARITY,URINE CLEAR; COLOR,URINE YELLOW; GLUCOSE, URINE (UA) NEGATIVE (NEGATIVE); KETONES,URINE TRACE (NEGATIVE); LEUKOCYTE ESTERASE ,URINE NEGATIVE (NEGATIVE); NITRITE,URINE NEGATIVE (NEGATIVE); PH,URINE 6.5 (5-9); PROTEIN,URINE 1+ (NEGATIVE)
--- NOTE | 2020-03-24 20:15 | NUR ---
IN ROOM TO ASSESS PATIENT NEEDS. CURRENTLY RESTING QUIETLY IN BED WITH AT BEDSIDE.
[2020-03-24 20:16] LABS: BACTERIA,URINE NEGATIVE /HPF; SQUAMOUS EPITHELIAL CELL,UR 0-2 /HPF; WBC,URINE 0-2 /HPF
[2020-03-24] MEDS ORDERED: cefTRIAXone FOR IV USE 1,000 MG in WATER (STERILE) FOR INJECTION 10 ML IV ONE (20:30)
[2020-03-24] MEDS ORDERED: NS 100 ML (IVPB) BAG IV ONE (21:15)
[2020-03-24] MEDS ORDERED: HOLD METFORMIN - RECEIVED CONTRAST 20 ML VIAL IV SCH (21:15)
[2020-03-24] MEDS ORDERED: IOHEXOL 350 MG/ML 100 ML (OMNIPAQUE 350) VIAL IV ONE (21:15)
[2020-03-25] VITALS (8 sets, daily range): BP systolic 16–147; BP diastolic 65–78
--- NOTE | 2020-03-25 00:53 | NUR ---
REPORT GIVEN TO AURELIANO BURTON, VERBALIZES WILL COME GET THE PATIENT AFTER SETTING UP THE ROOM.
[2020-03-25] MEDS ORDERED: LACTATED RINGERS 1,000 ML IV ONE ×3 (01:07→06:45)
[2020-03-25] MEDS ORDERED: ONDANSETRON 4 MG/2 ML (SDV) Z0FRAN IVP PRN (01:15)
[2020-03-25] MEDS ORDERED: ACETAMINOPHEN 650 MG SUPP (TYLENOL) PR PRN (01:15)
--- NOTE | 2020-03-25 01:25 | NUR ---
THIS NURSE TALKED TO PT'S WHEN GETTING PT FROM ED, LEFT PHONE NUMBER, AND SET UP A PASSWORD FOR PT. THIS NURSE TOLD PT'S THE ROOM NUMBER AND HOW TO GET AHOLD OF NURSE OR PT IF NEEDED.PT STATES SHE DOES NOT HAVE A MED LIST AT THIS TIME
--- NOTE | 2020-03-25 01:35 | NUR ---
MARK BONDS admitted to room 424-1, with an admitting diagnosis of PNEUMONIA, SUSPECTED COVID, on 03/24/20 from ED via CART, accompanied by STAFF.MARK BONDS introduced to surroundings, call light, bed controls, phone, TV, temperature control, lights, meal times, smoking policy, visitor policy, side rail policy, bathrooms and showers. Patient Rights given to patient in the handbook. MARK BONDS verbalizes understanding that [facility] is not responsible for the loss or damage to any personal effects or valuables that are kept in the patients posession during their hospitalization. MARK BONDS verbalizes understanding of Interdisciplinary Patient Education. Patient and/or family were informed about the Rapid Response Team and its purpose.
[2020-03-25] MEDS ORDERED: RT-ALBUTEROL INHALER HFA (VENTOLIN HFA) 18 GM IH PRN ×2 (02:00→02:15)
[2020-03-25] MEDS: LACTATED RINGERS 1,000 ML IV SCH ×3 (02:19→17:24)
[2020-03-25] MEDS ORDERED: AZITHROMYCIN INJECTION 500 MG/5 ML VIAL ONE (02:21)
[2020-03-25] MEDS ORDERED: NS (IVPB) 250 ML ONE (02:21)
[2020-03-25] MEDS: AZITHROMYCIN 500 MG/NS 250 ML IVPB IV SCH ×2 (02:29)
[2020-03-25 03:03] LABS: BASOPHILS # (AUTO) 0.1 10^3/uL (0.0-0.1); BASOPHILS % (AUTO) 0 % (0-10); EOSINOPHILS # (AUTO) 0.1 10^3/uL (0.0-0.3); EOSINOPHILS % (AUTO) 0 % (0-10); HEMATOCRIT 46 % (40-54); HEMOGLOBIN 14.4 g/dL (13.3-17.7); LYMPHOCYTES # (AUTO) 2.6 10^3/uL (1.0-4.0); LYMPHOCYTES % (AUTO) 18 % (12-44); MEAN CORPUSCULAR HEMOGLOBIN 31 pg (25-34); MEAN CORPUSCULAR HGB CONC 31 g/dL (32-36); MEAN CORPUSCULAR VOLUME 97 fL (80-99); MEAN PLATELET VOLUME 10.5 fL (9.0-12.2); MONOCYTES % (AUTO) 7 % (0-12); NEUTROPHILS # (AUTO) 10.9 10^3/uL (1.8-7.8); NEUTROPHILS % (AUTO) 74 % (42-75); PLATELET COUNT 313 10^3/uL (130-400); WHITE BLOOD COUNT 14.6 10^3/uL (4.3-11.0)
[2020-03-25 03:20] LABS: ALBUMIN 3.3 GM/DL (3.2-4.5); CHLORIDE 105 MMOL/L (98-107); POTASSIUM 3.6 MMOL/L (3.6-5.0); SODIUM 142 MMOL/L (135-145)
--- NOTE | 2020-03-25 03:20 | NUR ---
THIS NURSE CALLED ED NURSE DAMARIS TO CLARIFY BOLUS ORDER ON BRIDGE ORDER, ED RN NURSE STATES PT RECEIVED BOTH BOLUS IN ED, HE SHOULD HAVE FLUIDS ORDERED NOW
[2020-03-25 03:22] LABS: CALCIUM 8.4 MG/DL (8.5-10.1)
[2020-03-25 03:23] LABS: GLUCOSE 130 MG/DL (70-105); TOTAL PROTEIN 6.7 GM/DL (6.4-8.2)
[2020-03-25 03:24] LABS: CARBON DIOXIDE 24 MMOL/L (21-32)
[2020-03-25 03:25] LABS: BILIRUBIN,TOTAL 0.6 MG/DL (0.1-1.0)
[2020-03-25 03:26] LABS: ALKALINE PHOSPHATASE 89 U/L (40-136); CREATININE SERUM 0.72 MG/DL (0.60-1.30); GFR ESTIMATED > 60
[2020-03-25 03:27] LABS: BUN/CREATININE RATIO 17
[2020-03-25 03:29] LABS: ALANINE AMINOTRANSFERASE 9 U/L (0-55)
--- NOTE | 2020-03-25 04:05 | NUR ---
DR MAZARIEGOS NOTIFIED OF CRITICAL LACTIC ACID OF 2.23, AND THAT IT IS ELEVATED COMPARED TO THE LAST ONE. NO NEW ORDERS AT THIS TIME
[2020-03-25 04:20] LABS: EOSINOPHILS % (MANUAL) 1 %; LYMPHOCYTES % (MANUAL) 20 %; MONOCYTES % (MANUAL) 6 %; NEUTROPHILS % (MANUAL) 73 %; RBC MORPH NORMAL
--- NOTE | 2020-03-25 06:45 | NUR ---
NO URINE OUTPUT SINCE ADMISSION, BLADDER SCAN SHOWS 243ML, PT DENIES NEEDING TO URINATE. DR MAZARIEGOS NOTIFIED OF PT'S LACK OF OUTPUT, AND THAT PUTS HIM AT SEVERE SEPSIS RISK WITH THE ELEVATED WBC AND LACTIC ACID. DR ORDERED TO GIVE HIM 1 LITER BOLUS OF LR NOW
--- NOTE | 2020-03-25 07:12 | Diagnostic Imaging Report ---
PROCEDURE: CT chest, abdomen, and pelvis without contrast. TECHNIQUE: Multiple contiguous axial images were obtained through the chest, abdomen, and pelvis without the use of intravenous contrast. Auto Exposure Controls were utilized during the CT exam to meet ALARA standards for radiation dose reduction. INDICATION: Abdominal pain and leukocytosis There is right pleural effusion that layers out to a depth of 3.5 cm. There is some atelectasis in the dependent portion of both lung bases. There is aneurysm dilatation of the ascending aorta which measures 4.7 cm in diameter. There is calcific atherosclerosis of the descending thoracic aorta and coronary arteries. Liver appears normal. The gallbladder appears normal. Pancreas appears normal. Spleen is not enlarged. Kidneys and adrenals appear normal. There is abdominal aortic atherosclerosis but no aneurysm. Urinary bladder is unremarkable. Appendix is normal. Small bowel is not dilated. Colon is unremarkable. There are bilateral renal hernias with a loop of small bowel protruding into the hernia sac on the right. No evidence of obstruction or strangulation. IMPRESSION: Atherosclerosis. Bilateral inguinal hernias. Right pleural effusion with some basilar atelectasis. I agree with preliminary interpretation. Dictated by: Dictated on workstation # [id number]
[2020-03-25] MEDS: ENOXAPARIN 40 MG/0.4 ML (LOVENOX) SYR SC SCH (08:22)
--- NOTE | 2020-03-25 08:39 | Diagnostic Imaging Report ---
INDICATION: Shortness of breath, leukocytosis Single image view perfusion lung scan was done using 5.4 mCi of technetium 99m MAA which is injected intravenously. There are no appreciable perfusion defects in the left lung. There is a right pleural effusion. IMPRESSION: Limited perfusion lung scan shows right pleural effusion. Dictated by: Dictated on workstation # [id number]
--- NOTE | 2020-03-25 10:54 | NUR ---
Spoke with Joi and updated her on patients status regarding increased WBC and medications patient is receiving at this time. Joi requests daily updates.
[2020-03-25] MEDS ORDERED: BETHANECHOL PO (11:21)
[2020-03-25] MEDS ORDERED: MULT-1076 PO (11:21)
[2020-03-25] MEDS ORDERED: VNL75T PO ×2 (11:21)
[2020-03-25] MEDS ORDERED: MUPI22OI2 TOP (11:21)
[2020-03-25] MEDS ORDERED: LEVE750T5 PO (11:21)
[2020-03-25] MEDS ORDERED: ATOR40TA70 PO (11:21)
[2020-03-25] MEDS ORDERED: OMEP40CA27 PO (11:21)
[2020-03-25] MEDS ORDERED: TMSL.4C PO (11:21)
[2020-03-25] MEDS ORDERED: IRBE300T17 PO (11:21)
[2020-03-25] MEDS ORDERED: ASPI-1238 PO (11:21)
[2020-03-25] MEDS ORDERED: METO100T12 PO (11:21)
[2020-03-25] MEDS ORDERED: FINA5TAB6 PO (11:21)
--- NOTE | 2020-03-25 11:24 | NUR ---
SPOKE WITH THE PTS (BETH) AND WENT THRU THE EXT MED HISTORY TO COMPLETE THE MED REC BETH NAMED ALL THE PTS MEDICATIONS WELL WHEN/HOW HE TAKES EACH MED- ALL HER INFORMATION MATCHED THE EXT MED HISTORY OTC MEDS: MTV W/ IRON ASPIRIN 81MG TYLENOL BETH WANTED ME TO BE AWARE THAT THE PT CANT SWALLOW HIS PILLS AND SHE CRUSHED THEM UP AND PUT THEM IN SOFT FOOD, USUALLY PUDDING). SHE ALSO WANTED ME TO KNOW THAT ANYTIME THE PT IS ON ANTIBIOTIC HE GETS A YEAST INFECTION,- AND FOR THIS REASON HE TAKES FLUCONAZOLE PROPHYLACTICALLY. I LET BETH KNOW THAT I WOULD CONVEY THIS TO HIS NURSE
[2020-03-25] MEDS ORDERED: PIPERACILLIN/TAZO 4.5 GM/NS 100 ML IV NR ×2 (12:30)
[2020-03-25] MEDS ORDERED: FLUC150T2 PO (12:34)
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
[2020-03-25] MEDS ORDERED: PANTOPRAZOLE 40 MG (PROTONIX) TAB PO NR (13:00)
[2020-03-25] MEDS ORDERED: BETHANECHOL PO SCH (13:00)
--- NOTE | 2020-03-25 14:03 | ST Dysphagia Evaluation ---
Speech Evaluation-General Medical Diagnosis Pneumonia, COVID-19 Onset Date: Mar 24, 2020 Therapy Diagnosis Therapy Diagnosis: Oropharyngeal Dysphagia Precautions Precautions: Aspiration Referral Referring Physician: Dr. Suggs Medical History Pertinent Medical History: CVA Reviewed History: Yes Social History Current Living Status: Spouse Speech PLF/Current-Dysphagia Prior Level of Function Patient lives with his who is his caregiver. Patient's diet level prior to admission is unknown. Subjective Patient was cooperative with the dysphagia evaluation. Oral Motor Skills Dentition: Natural, Tumbled, Stained Current Food Consistancy: Mechanical Soft, Thin Liquids Ability to Follow Directions: Fair Oral Expression Ability: Unable Face Facial Symmetry: Asymmetrical Oral-Facial Assessment Oral-Facial Dentition: Normal Labial Seal Description: Weak, Poor Coordination Smile: Droops Left Lingual Protrusion: Abnormal Lingual ROM: Abnormal Lingual Strength: Abnormal Pharynx Velopharyngeal Move.: Normal Volitional Dry Swallow: No Voluntary Cough: Yes Can Clear Throat Volitionally: No Dysphagia Evaluation Consistencies Presented: Thin Liquid, Mechanical Soft, Pureed Oral Phase: Reduced Oral Transit Reduced A to P transit with mechanical soft texture Pharyngeal Phase: Decreased A/P Bolus Transit Patient demo good intake with puree and thin, mechanical soft was decreased A to P transit but was able to clear without s/s of aspiration. Dietary Recommendations: Mechanical Soft Liquid Recommendations: Thin Swallowing Precautions: Alternate Liquids/Solids, Double Swallow, Decreased Bolus 1/2 Tsp, Liquids from Cup, Liquids from Spoon, No Straw, Small Bites and Sips, Sitting Upright 90 Degrees, Sitting 90 Degrees 30 Post Intake Dysphagia Evaluation Summary Patient is a pleasant 69 y/o male who was admitted to the hospital due to COVID- 19 which he's had in January. He had virus s/s again and came to the ER. The patient was referred for a bedside dysphagia evaluation for assessment of least restrictive diet leve. The patient was given 1/2 tsp of thin liquids x3 without difficulty noted. He was also given small sips of water via straw without s/s of aspiration noted. The patient was given 1/2 tsp of puree and mechanical soft without difficulty with the puree, however he did have mild difficulty with A to P transit. Bolus management at the oral level is mildly decreased, however he did swallow ok once transit was complete without s/s of aspiration. Patient is recommended to continue with his current diet level. Barriers to Learning Patient's previous CVA deficits, nonverbal Speech-Plan Patient/Family Goals Patient/Family Goals: It is presumed patient will return home where he lives with his who is also his caregiver. Treatment Plan Speech Therapy Treatment Plan: Discontinue ST Treatment Duration: Mar 25, 2020 Frequency: 1 time per week Estimated Hrs Per Day: .25 hour per day Rehab Potential: Fair Barriers to Learning: Patient's previous CVA deficits, nonverbal Pt/Family Agrees to Plan: Yes Safety Risks/Education Teaching Recipient: Patient Teaching Methods: Discussion Response to Teaching: Reinforcement Needed Education Topics Provided: Safety of oral intake, diet level Time Speech Therapy Time In: 09:30 Speech Therapy Time Out: 09:50 Total Billed Time: 20 Billed Treatment Time 1, DANDRE MIRANDA BETHANIA ST Mar 25, 2020 14:03
--- NOTE | 2020-03-25 14:23 | NUR ---
"RD ASSESSMENT PMHx: CVA; pneumonia; BPH; dysphagia; PT INTERACTION: Note pt is currently in COVID isolation, per chart review. Note all diet information for nutrition assessment is per Sukhdeep RN, or per chart review. Sukhdeep states current appetite appears fair. Note PO intake 25% x1meal, per chart review. Note pt currently on DYS2 Mechanically Altered diet, as pt has PMH of dysphagia. Sukhdeep states no issues with nausea, vomiting, constipation, or diarrhea that she is aware of. Note pt has no recorded BM, and pt not currently on bowel regimen per chart review. Note unable to determine recent wt hx, per chart review. ABNORMAL NUTRITION-RELATED LAB VALUES LOW: Ca 8.4; HIGH: glu 130; Est. kcal needs: 4546-2425 kcal | 20-25 kcal/kg Est. Pro needs: 83-104 g Pro | 0.8-1.0 g Pro/kg PES STATEMENT: Inadequate oral intake (NI-2.1) related to loss of appetite, as evidenced by pt interview, and PO intake 25% x1meal. INTERVENTION: Continue with current diet order of DYS2 Mechanically Altered diet. Continue with current supplementation order of Ensure Enlive with meals TID, for increased kcal intake. Provides 350 kcal and 20 g Pro per serving. Would encourage pt to eat when able. Will continue to follow and reassess as pt needs, intake, and status change. Zaki FERREIRA, MS RD LD [phone] cell"
[2020-03-25] MEDS: BETHANECHOL 25 MG (URECHOLINE) TAB PO SCH ×2 (17:24→22:01)
[2020-03-25] MEDS ORDERED: cefTRIAXone 1,000 MG/SWFI 10 ML IV PUSH IV SCH ×2 (21:00)
[2020-03-25] MEDS ORDERED: NON-FORMULARY MEDICATION 1 EA EA (Levetiracetam 750 MG) PO SCH (21:00)
[2020-03-25] MEDS: VENlafaxine 75 MG (EFFEXOR) TAB PO SCH (22:00)
[2020-03-25] MEDS: PIPERACILLIN/TAZOBACTAM (BULK) 4.5 GM in NS (IVPB) 100 ML IV SCH (22:00)
[2020-03-25] MEDS: FINASTERIDE (PROSCAR) 5 MG TAB PO SCH (22:01)
[2020-03-25] MEDS: TAMSULOSIN 0.4 MG (FLOMAX) CAP PO SCH (22:01)
[2020-03-25] MEDS: LEVETIRACETAM 500 MG (KEPPRA) TAB PO SCH (22:02)
[2020-03-26] VITALS (7 sets, daily range): BP systolic 111–144; BP diastolic 61–92
[2020-03-26] MEDS: AZITHROMYCIN 500 MG/NS 250 ML IVPB IV SCH ×2 (03:04)
[2020-03-26] MEDS: LACTATED RINGERS 1,000 ML IV SCH ×2 (05:30→09:18)
[2020-03-26] MEDS: PIPERACILLIN/TAZOBACTAM (BULK) 4.5 GM in NS (IVPB) 100 ML IV SCH ×2 (05:40→19:59)
[2020-03-26] MEDS: BETHANECHOL 25 MG (URECHOLINE) TAB PO SCH ×4 (05:43→21:14)
--- NOTE | 2020-03-26 06:36 | NUR ---
NOTIFIED DR MAZARIEGOS OF NEGATIVE COVID RESULTS, ORDERED TO REMOVE FROM ISOLATION
[2020-03-26 06:41] LABS: HEMOGLOBIN 12.2 g/dL (13.3-17.7); WHITE BLOOD COUNT 13.8 10^3/uL (4.3-11.0)
[2020-03-26 06:53] LABS: CHLORIDE 107 MMOL/L (98-107); POTASSIUM 3.5 MMOL/L (3.6-5.0); SODIUM 141 MMOL/L (135-145)
[2020-03-26 06:54] LABS: CALCIUM 7.9 MG/DL (8.5-10.1); GLUCOSE 127 MG/DL (70-105)
[2020-03-26 06:56] LABS: CARBON DIOXIDE 24 MMOL/L (21-32)
[2020-03-26 06:58] LABS: CREATININE SERUM 0.69 MG/DL (0.60-1.30); GFR ESTIMATED > 60
[2020-03-26 06:59] LABS: BUN/CREATININE RATIO 13
[2020-03-26 07:01] LABS: MAGNESIUM 1.8 MG/DL (1.6-2.4)
[2020-03-26] MEDS ORDERED: RT-ALBUTEROL INHALER HFA (VENTOLIN HFA) 18 GM IH SCH (08:00)
--- NOTE | 2020-03-26 08:09 | Diagnostic Imaging Report ---
EXAMINATION: Chest radiograph, portable AP view. DATE: 03/26/2020 4:32 AM INDICATION: 69-year-old male, follow-up pneumonia. COMPARISON: March 24, 2020. FINDINGS: Heart size and mediastinal contours are unchanged. There is no identified pneumothorax. There are predominantly linear opacities in the left lower to midlung most likely relating to atelectasis. There is a gradient of attenuation overlying the right lung base. IMPRESSION: 1. Gradient of attenuation overlying the right lung base which could relate to pleural effusion, atelectasis, and/or infiltrate. 2. Subsegmental atelectasis in the left lower to midlung. Dictated by: Dictated on workstation # [id number]
[2020-03-26] MEDS: ENOXAPARIN 40 MG/0.4 ML (LOVENOX) SYR SC SCH (08:59)
[2020-03-26] MEDS: LEVETIRACETAM 500 MG (KEPPRA) TAB PO SCH ×2 (08:59→21:14)
[2020-03-26] MEDS: PANTOPRAZOLE 40 MG (PROTONIX) TAB PO SCH (09:00)
[2020-03-26] MEDS: VENlafaxine 75 MG (EFFEXOR) TAB PO SCH ×2 (09:07→21:13)
--- NOTE | 2020-03-26 10:16 | Progress Note ---
Subjective Date Seen by a Provider: Mar 26, 2020 Time Seen by a Provider: 10:09 Subjective/Events-last exam Fwup pneumonia with sepsis, hypoxia, respiratory distress, COVID exposure, Hx. of seizures, HTN. Sitting up in bed. Poor appetite. Denies nausea. Second COVID negative. Focused Exam Lactate Level 03/24/20 23:12: Lactic Acid Level 2.16*H 03/25/20 02:40: Lactic Acid Level 2.23*H 03/25/20 07:25: Lactic Acid Level 1.49 Objective Exam Vital Signs Date Time Temp Pulse Resp B/P (MAP) Pulse Ox O2 Delivery O2 Flow Rate FiO2 03/26/20 08:00 37.4 75 18 111/92 (98) 91 Nasal Cannula 3.00 03/26/20 07:12 93 Nasal Cannula 2.00 03/26/20 07:00 93 03/26/20 03:50 36.3 90 17 114/61 (78) 93 Nasal Cannula 2.50 03/26/20 01:00 94 03/26/20 00:00 36.7 92 19 129/72 (91) 93 Nasal Cannula 2.50 03/25/20 21:59 Nasal Cannula 2.00 03/25/20 20:01 37.6 93 20 139/77 (97) 97 Nasal Cannula 2.50 03/25/20 19:00 88 03/25/20 16:47 37.6 97 22 145/78 (100) 90 Nasal Cannula 2.00 03/25/20 11:33 36.7 89 16 126/65 (85) 91 Nasal Cannula 1.00 I & O 03/26/20 07:00 Intake Total 1440 ml Balance 1440 ml Capillary Refill : Less Than 3 Seconds General Appearance: No Apparent Distress Neck: Supple Respiratory: Crackles, Decreased Breath Sounds Cardiovascular: Systolic Murmur, Gallop/S4, Irregularly Irregular Gastrointestinal: normal bowel sounds, non tender, soft Extremity: Non Tender, No Calf Tenderness, Pedal Edema Neurologic/Psychiatric: Alert Skin: Warm/Dry Results Lab Laboratory Tests 03/26/20 05:37: White Blood Count 13.8H, Red Blood Count 4.01L, Hemoglobin 12.2L, Hematocrit 38L , Mean Corpuscular Volume 96, Mean Corpuscular Hemoglobin 30, Mean Corpuscular Hemoglobin Concent 32, Red Cell Distribution Width 12.4, Platelet Count 346, Mean Platelet Volume 11.0, Sodium Level 141, Potassium Level 3.5L, Chloride Level 107, Carbon Dioxide Level 24, Anion Gap 10, Blood Urea Nitrogen 9, Creatinine 0.69, Estimat Glomerular Filtration Rate > 60, BUN/Creatinine Ratio 13, Glucose Level 127H, Calcium Level 7.9L, Magnesium Level 1.8 Microbiology 03/24/20 Blood Culture - Preliminary, Resulted No growth 03/24/20 Influenza Types A,B Antigen ([place]) - Final, Complete Assessment/Plan Assessment/Plan Assess & Plan/Chief Complaint 1. RLL pneumonia with Sepsis--change IVFs to 1/2NS with KCL, continue zosyn and zithromax, lovenox for DVT prophylaxis 2. COVID Exposure-2nd COVID negative 3. Acute Hypoxia/Respiratory Distress--currently stable on oxygen via [place] 4. Hypertension-BP meds on hold 5. History of seizure--back on Keppra 6. Hypokalemia--replace potassium 7. New onset atrial fibrillation--Check 2-D ECHO, Dr. Wooten consulted Called and discussed conditions/care Clinical Quality Measures Admission Status Admission Dx 1. RLL pneumonia with Sepsis--IVF resuscitation, change ceftriaxone to zosyn and continue zithromax, lovenox for DVT prophylaxis 2. COVID Exposure--COVID pending but high PUI 3. Acute Hypoxia/Respiratory Distress--currently stable on oxygen via NC 4. Hypertension--hold home meds as BP is low/normal now 5. History of seizure--resume Keppra DVT/VTE Risk/Contraindication: Risk Factor Score Per Nursin RFS Level Per Nursing on Admit: 4+=Very High ALBERTINA MAZARIEGOS DO Mar 26, 2020 10:16
[2020-03-26] MEDS: FLUCONAZOLE 200 MG/100 ML 50 ML, EMPTY IV BAG (PVC) 1 EA IV SCH ×2 (11:36)
--- NOTE | 2020-03-26 11:36 | Physical Therapy Evaluation ---
PT Evaluation-General Medical Diagnosis Admission Date Mar 24, 2020 at 23:37 Medical Diagnosis: Pneumonia, COVID-19 Onset Date: Mar 24, 2020 Therapy Diagnosis Therapy Diagnosis: debility/weakness Height/Weight Height (Feet): 6 Height (Inches): 2.00 Weight (Pounds): 226 Weight (Ounces): 6.4 Precautions Precautions/Isolations: Airborne Isolation, Contact Isolation, Droplet Isolation Weight Bear Status Right Lower Extremity: Right Referral Physician: Ifeanyi Reason for Referral: Evaluation/Treatment Medical History Pertinent Medical History: CVA, HTN Additional Medical History seizures Current History ER secondary to diarrhea, SOA and SAO2 85% Reviewed History: Yes Social History Home: Single Level Current Living Status: Spouse Entry Into Home: Ramp Prior Prior Level of Function SCALE: Activities may be completed with or without assistive devices. 7-Jwdfitrfql-xvschha completes the activity by him/herself with no assistance from a helper. 5-Set-up or Clean-up Assistance-helper sets up or cleans up; patient completes activity. [place] assists only prior to or following the activity. 4-Supervision or Touching Assistance-helper provides verbal cues and/or touching/steadying and/or contact guard assistance as patient completes activity. Assistance may be provided throughout the activity or intermittently. 3-Partial/Moderate Assistance-helper does LESS THAN HALF the effort. [place] lifts, holds or supports trunk or limbs, but provides less than half the effort. 2-Substantial/Maximal Assistance-helper does MORE THAN HALF the effort. [place] lifts or holds trunk or limbs and provides more than half the effort. 0-Wvrsnucog-etutpv does ALL the effort. Patient does none of the effort to complete the activity. Or, the assistance of 2 or more helpers is required for the patient to complete the activity. If activity was not attempted, code reason: 7-Patient Refused. 9-Not Applicable-not attempted and the patient did not perform the activity before the current illness, exacerbation or injury. 10-Not Attempted due to Environmental Limitations-(lack of equipment, weather restraints, etc.). 88-Not Attempted due to Medical Conditions or Safety Concerns. Bed Mobility: 1 Transfers (B,C,W/C): 1 (Landen lift at home) Gait: 9 Stairs: 9 Wheelchair Mobility: 1 Indoor Mobility (Ambulation): Not [place] Stairs: Not Applicalbe Prior Device Use: Landen lift for transfers PLOF PT Evaluation-Current Subjective Patient is in bed. Objective Patient Orientation: Confused ROM/Strength ROM Lower Extremities bilateral LE WFL Strength Lower Extremities flaccid right LE and UE/left LE 2/5 grossly all planes Integumentary/Posture Integumentary refer to nursing notes Bowel Incontinence: Yes Bladder Incontinence: Schmitz Cath Neuromuscular (Tone, Coordination, Reflexes) flaccid right side Sensory Vision: Functional Transfers Roll Left to Right (QC): 1 Landen transfer Gait Does the Patient Walk?: No and Walking Goal NOT indicated Treatment Patient will be transferred to another room. Nursing notified of Landen transfer PLOF. PT performed bilateral LE ROM and repositioned patient in bed. Assessment/Needs 69 y.o. male, will be seen short term by skilled PT to address bilateral ROM. Patient is dependent PLOF at home with use of Landen Lift for transfers. Patient right side is flaccid. Rehab Potential: Poor PT Short Term Goals Short Term Goals Time Frame: Apr 03, 2020 Roll Left & Right: 1 Sit to lyin Lying to sitting on side of be: 1 Landen Lift PT Plan Problem List Problem List: Activity Tolerance, Functional Strength, Balance, Transfer, Bed Mobility Treatment/Plan Treatment Plan: Continue Plan of Care Treatment Plan: Bed Mobility, Functional Activity Zunilda, Functional Strength, Therapeutic Exercise, Transfers (Landen per nursing staff) Treatment Duration: Apr 03, 2020 Frequency: 5 times per week Estimated Hrs Per Day: .25 hour per day Patient and/or Family Agrees t: Yes Time/GCodes Time In: 1050 Time Out: 1102 Total Billed Treatment Time: 12 Total Billed Treatment 1 visit EVMod 12 min BEVERLY DOYLE PT Mar 26, 2020 11:36
[2020-03-26] MEDS: 1/2 NS W/KCL 20 MEQ/L 1,000 ML IV SCH ×2 (11:37→23:36)
[2020-03-26] MEDS: POTASSIUM CL 10MEQ/50ML IVPB 50 ML IV SCH ×2 (11:38→16:30)
[2020-03-26] MEDS: RT-ALBUTEROL INHALER HFA (VENTOLIN HFA) 18 GM IH SCH ×2 (15:26→20:40)
[2020-03-26] MEDS ORDERED: POTASSIUM CL 10MEQ/50ML IVPB 50 ML IV ONE (16:24)
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
[2020-03-26] MEDS: TAMSULOSIN 0.4 MG (FLOMAX) CAP PO SCH (21:13)
[2020-03-26] MEDS: FINASTERIDE (PROSCAR) 5 MG TAB PO SCH (21:14)
[2020-03-26] MEDS: APIXABAN 5 MG (ELIQUIS) TABLET PO SCH (21:14)
[2020-03-27] MEDS: AZITHROMYCIN 500 MG/NS 250 ML IVPB IV SCH ×2 (01:57)
[2020-03-27] MEDS: PIPERACILLIN/TAZOBACTAM (BULK) 4.5 GM in NS (IVPB) 100 ML IV SCH ×3 (04:13→19:52)
[2020-03-27 04:20] VITALS: BP 129/73
[2020-03-27 05:35] LABS: HEMOGLOBIN 11.7 g/dL (13.3-17.7); MEAN PLATELET VOLUME 10.7 fL (9.0-12.2); WHITE BLOOD COUNT 11.2 10^3/uL (4.3-11.0)
[2020-03-27 05:55] LABS: CHLORIDE 107 MMOL/L (98-107); POTASSIUM 3.9 MMOL/L (3.6-5.0); SODIUM 141 MMOL/L (135-145)
[2020-03-27 05:56] LABS: CALCIUM 7.9 MG/DL (8.5-10.1)
[2020-03-27 05:57] LABS: GLUCOSE 112 MG/DL (70-105)
[2020-03-27 05:58] LABS: CARBON DIOXIDE 24 MMOL/L (21-32)
[2020-03-27 06:01] LABS: BUN/CREATININE RATIO 11; CREATININE SERUM 0.65 MG/DL (0.60-1.30); GFR ESTIMATED > 60
[2020-03-27] MEDS: BETHANECHOL 25 MG (URECHOLINE) TAB PO SCH ×4 (06:09→20:01)
--- NOTE | 2020-03-27 06:16 | Progress Note ---
Subjective Subjective Date Seen by Provider: Mar 27, 2020 Time Seen by Provider: 06:00 Pt states he is doing well and denies any complaints besides some swelling in his legs. No pain or SOB. WBC today is 11.2, potassium is 3.9. Review of Systems General: No Chills, No Fatigue HEENT: No Eye Pain, No Ear Pain Pulmonary: No Dyspnea Cardiovascular: No: Chest Pain Gastrointestinal: No: Nausea, Vomiting, Abdominal Pain Genitourinary: No Dysuria, No Frequency Musculoskeletal: No: neck pain, shoulder pain Neurological: No: Change in speech, Confusion All Other Systems Reviewed All Other Systems Reviewed: Yes (Negative excepted noted.) Objective Exam Vital Signs Vital Signs - First Documented 03/24/20 03/24/20 03/25/20 17:30 18:41 04:37 Temp 36.1 Pulse 89 Resp 16 B/P (MAP) 135/86 (102) Pulse Ox 93 O2 Delivery Room Air O2 Flow Rate 2.00 FiO2 28 Capillary Refill : Less Than 3 Seconds General Appearance: No Apparent Distress, WD/WN Eyes: Bilateral Eye Normal Inspection HEENT: PERRL/EOMI, Normal ENT Inspection Neck: Supple Respiratory: Decreased Breath Sounds, Other (tachypneic) Cardiovascular: Systolic Murmur, Irregularly Irregular, Other (mild BLE edema) Gastrointestinal: Normal Bowel Sounds, Non Tender, Soft Rectal: Deferred Extremity: Non Tender, No Calf Tenderness, Pedal Edema Neurologic/Psychiatric: Alert, No Motor/Sensory Deficits, Normal Mood/Affect, Other (residual right-sided weakness from prior stroke) Skin: Normal Color, Warm/Dry Results Lab Laboratory Tests 03/27/20 05:20: White Blood Count 11.2H, Red Blood Count 3.85L, Hemoglobin 11.7L, Hematocrit 37L , Mean Corpuscular Volume 96, Mean Corpuscular Hemoglobin 30, Mean Corpuscular Hemoglobin Concent 32, Red Cell Distribution Width 12.4, Platelet Count 348, Mean Platelet Volume 10.7, Sodium Level 141, Potassium Level 3.9, Chloride Level 107, Carbon Dioxide Level 24, Anion Gap 10, Blood Urea Nitrogen 7, Creatinine 0.65, Estimat Glomerular Filtration Rate > 60, BUN/Creatinine Ratio 11, Glucose Level 112H, Calcium Level 7.9L Microbiology 03/24/20 Urine Culture - Final, Complete NO GROWTH 03/24/20 Blood Culture - Preliminary, Resulted No growth 03/24/20 Influenza Types A,B Antigen ([place]) - Final, Complete Assessment/Plan Assessment/Plan Assessment and Plan pneumonia with sepsis COVID negative hypoxia HTN Hx seizures hypokalemia-improved New onset Afib pneumonia with sepsis -on Azithromycin and Zosyn -decrease fluids from 75 to 50 mL/hr and add Lasix COVID negative hypoxia -on 2 liters NC HTN -meds on hold Hx seizures -Keppra hypokalemia-improved New onset Afib -started on Eliquis -echo shows aortic stenosis and tricuspid regurgitation Lovenox for DVT prophylaxis. Protonix for GI prophylaxis. Clinical Quality Measures DVT/VTE Risk/Contraindication: Risk Factor Score Per Nursin RFS Level Per Nursing on Admit: 4+=Very High Supervisory-Addendum Brief Verification & Attestation Participated in pt care: history, MDM, physical Personally performed: exam, history, MDM, supervision of care Care discussed with: Medical Student Procedures: n/a Results interpretation: Verified all documentation I HAVE PERSONALLY REVIEWED PERTINENT DATA, INTERVIEWED AND EXAMINED THE PATIENT AND AGREE WITH MEDICAL STUDENT NOTE DOCUMENTED. 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 HE PRESENTED TO THE HOSPITAL WITH ACUTE ILLNESS, CONCERN FOR COVID SINCE HIS AND CAREGIVER HAD RECENTLY BEEN ILL WITH DOCUMENTED COVID-19. HE HAD TWO TESTS, BOTH OF WHICH WERE NEGATIVE FOR COVID. PT WAS DX WITH THE FOLLOWING: PNEUMONIA SEPSIS LACTIC ACIDOSIS WAS COVID PUI - NEGATIVE ASPIRATION HYPOXIA HYPOKALEMIA DEHYDRATION HYPERTENSION NEW ONSET ATRIAL FIBRILLATION HX OF SEIZURE HX OF STROKE AFTER FAILED SUICIDE ATTEMPT VASCULAR DEMENTIA PNEUMONIA WITH SEPSIS AND NOW RESOLVED LACTIC ACIDOSIS -WAS COVID PUI - NEGATIVE - PNEUMONIA APPEARS TO BE RIGHT SIDED AND DUE TO KNOWN HX OF RECURRENT ASPIRATION - SPEECH WAS CONSULTED, CONTINUE WITH ASPIRATION PRECAUTIONS WHEN EATING/DRINKING - ZOSYN, FLUCONAZOLE AND AZITHROMYCIN IV - CXR SHOWS POSSIBLE PERSISTENT PLEURAL EFFUSION - DECREASE FLUIDS FROM 75ML TO 50ML, SMALL DOSE OF LASIX TODAY DUE TO EDEMA AND PLEURAL EFFUSION - REPEAT IMAGING TOMORROW MORNING - STRICT INTAKE AND OUTPUT, DAILY WEIGHTS - WHITE COUNT CONTINUES TO IMPROVE HYPOKALEMIA AND DEHYDRATION - RESOLVED - MONITOR LABS HYPERTENSION AND NEW ONSET ATRIAL FIBRILLATION - PT ON RATE CONTROLLING MEDICATIONS, ELIQUIS, MONITOR RESPONSE TO TREATMENT HX OF SEIZURE AND HX OF STROKE AFTER FAILED SUICIDE ATTEMPT - SUPPORTIVE CARE, CONTINUE HOME REGIMEN. 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 ARETHA ROMERO MED STUDENT Mar 27, 2020 06:16 KEYA MEDINA MD Mar 27, 2020 07:17
[2020-03-27] MEDS ORDERED: FUROSEMIDE 40 MG/4 ML INJ (LASIX) IVP ONE (07:00)
[2020-03-27] MEDS: RT-ALBUTEROL INHALER HFA (VENTOLIN HFA) 18 GM IH SCH ×2 (07:54→20:02)
[2020-03-27 08:00] VITALS: BP 124/81
[2020-03-27] MEDS: VENlafaxine 75 MG (EFFEXOR) TAB PO SCH ×2 (08:24→20:01)
[2020-03-27] MEDS: LEVETIRACETAM 500 MG (KEPPRA) TAB PO SCH ×2 (08:24→20:01)
[2020-03-27] MEDS: PANTOPRAZOLE 40 MG (PROTONIX) TAB PO SCH (08:24)
[2020-03-27] MEDS: FLUCONAZOLE 200 MG/100 ML 50 ML, EMPTY IV BAG (PVC) 1 EA IV SCH ×2 (08:24)
[2020-03-27] MEDS: APIXABAN 5 MG (ELIQUIS) TABLET PO SCH ×2 (08:24→20:01)
[2020-03-27 12:00] VITALS: BP_SYST 102; BP_SYST 124; BP_DIAS 72; BP_DIAS 81
--- NOTE | 2020-03-27 13:44 | Cardiology Progress Note ---
Cardiology SOAP Progress Note Subjective: No chest pain or shortness of breath. Objective: I&O/Vital Signs 03/28/20 03/28/20 03/28/20 03/28/20 04:00 07:00 08:00 08:00 Temp 37.1 35.8 Pulse 82 77 82 Resp 18 18 B/P (MAP) 133/73 (93) 137/77 (97) Pulse Ox 92 94 O2 Delivery Nasal Cannula Nasal Cannula O2 Flow Rate 3.00 1.50 03/28/20 03/28/20 09:11 12:21 Pulse 85 Pulse Ox 92 O2 Delivery Nasal Cannula O2 Flow Rate 3.00 03/28/20 00:00 Intake Total 720 ml Balance 720 ml Weight (Pounds): 226 Weight (Ounces): 6.4 Weight (Calculated Kilograms): 105.445801 Constitutional: AAO x 3 Respiratory: chest is bilaterally symmetric, lungs clear to auscultation Cardiovascular: irregularly irregular, S1 and S2, systolic murmur Gastrointestional: soft, audible bowel sounds Extremities: normal range of motion, non-tender, normal inspection, no lower extremity edema bilateral Neurologic/Psychiatric: alert, normal mood/affect, oriented x 3 Results/Procedures: Labs Laboratory Tests 03/28/20 06:47: White Blood Count 8.6, Red Blood Count 3.85L, Hemoglobin 11.8L, Hematocrit 38L, Mean Corpuscular Volume 98, Mean Corpuscular Hemoglobin 31, Mean Corpuscular Hemoglobin Concent 31L, Red Cell Distribution Width 12.5, Platelet Count 351, Mean Platelet Volume 10.7, Sodium Level 143, Potassium Level 4.1, Chloride Level 106, Carbon Dioxide Level 24, Anion Gap 13, Blood Urea Nitrogen 7, Creatinine 0.63, Estimat Glomerular Filtration Rate > 60, BUN/Creatinine Ratio 11, Glucose Level 98, Calcium Level 8.2L Microbiology 03/24/20 Urine Culture - Final, Complete NO GROWTH 03/24/20 Blood Culture - Preliminary, Resulted No growth 03/24/20 Influenza Types A,B Antigen ([place]) - Final, Complete A/P: Assessment/Dx: sepsis, pneumonia, Paraplegia, Atrial fibrillation with rapid ventricular rate, Anpc-hg-hqijdnha aortic stenosis, Pulmonary hypertension Plan: Plan sepsis, pneumonia, on broad spectrum IV antibiotics. Defer to Dr. Suggs. Paraplegia, Atrial fibrillation with rapid ventricular rate, controlled ventricular rate. On Eliquis 5 mg twice a day. Once sepsis subsides, ventricular rate will improve. Bhop-eg-wjtxtzmn aortic stenosis, Pulmonary hypertension Thank you for your consultation. Please call me if you have any questions. Arvind Wooten MD, FACP, FACC, FSCAI, FHRS, CCDS Interventional Cardiology Cardiac Electrophysiology Vascular Medicine and Endovascular Interventions Focused Exam Lactate Level Rosalind WOOTEN MD Mar 27, 2020 13:44
[2020-03-27] MEDS: 1/2 NS W/KCL 20 MEQ/L 1,000 ML IV SCH (15:47)
[2020-03-27 16:30] VITALS: BP 124/73
[2020-03-27 19:47] VITALS: BP 129/72
[2020-03-27] MEDS: FINASTERIDE (PROSCAR) 5 MG TAB PO SCH (20:01)
[2020-03-27] MEDS: TAMSULOSIN 0.4 MG (FLOMAX) CAP PO SCH (20:01)
[2020-03-28] VITALS: BP 127/71
[2020-03-28] MEDS: AZITHROMYCIN 500 MG/NS 250 ML IVPB IV SCH ×2 (01:55)
[2020-03-28 04:00] VITALS: BP 133/73
[2020-03-28] MEDS: PIPERACILLIN/TAZOBACTAM (BULK) 4.5 GM in NS (IVPB) 100 ML IV SCH ×3 (04:12→19:57)
[2020-03-28] MEDS: BETHANECHOL 25 MG (URECHOLINE) TAB PO SCH ×4 (06:11→20:00)
--- NOTE | 2020-03-28 06:54 | NUR ---
Dr Amaya notified that patient has not voided since approximately 2200 last night. Order received for Laix 20mg IV once now and bladder scan in a few hours. If bladder scan volume is greater than 350ml, straight cath.
[2020-03-28] MEDS ORDERED: FUROSEMIDE 40 MG/4 ML INJ (LASIX) IVP ONE (07:00)
[2020-03-28 07:07] LABS: HEMOGLOBIN 11.8 g/dL (13.3-17.7); MEAN PLATELET VOLUME 10.7 fL (9.0-12.2); WHITE BLOOD COUNT 8.6 10^3/uL (4.3-11.0)
[2020-03-28 07:21] LABS: CHLORIDE 106 MMOL/L (98-107); POTASSIUM 4.1 MMOL/L (3.6-5.0); SODIUM 143 MMOL/L (135-145)
[2020-03-28 07:22] LABS: CALCIUM 8.2 MG/DL (8.5-10.1)
[2020-03-28 07:23] LABS: GLUCOSE 98 MG/DL (70-105)
[2020-03-28 07:25] LABS: CARBON DIOXIDE 24 MMOL/L (21-32)
[2020-03-28 07:27] LABS: CREATININE SERUM 0.63 MG/DL (0.60-1.30); GFR ESTIMATED > 60
[2020-03-28 07:28] LABS: BUN/CREATININE RATIO 11
[2020-03-28 08:00] VITALS: BP 137/77
[2020-03-28] MEDS: VENlafaxine 75 MG (EFFEXOR) TAB PO SCH ×2 (08:20→20:00)
[2020-03-28] MEDS: APIXABAN 5 MG (ELIQUIS) TABLET PO SCH ×2 (08:20→20:00)
[2020-03-28] MEDS: PANTOPRAZOLE 40 MG (PROTONIX) TAB PO SCH (08:21)
[2020-03-28] MEDS: LEVETIRACETAM 500 MG (KEPPRA) TAB PO SCH ×2 (08:21→20:00)
--- NOTE | 2020-03-28 08:27 | Progress Note ---
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 HE HAS HX OF STROKE AND DX OF RIGHT SIDED PNEUMONIA DUE TO RECURRENT ASPIRATION. THIS MORNING THE PATIENT REPORTS THAT HE IS DOING OKAY - STAFF REPORTS THAT HE IS INCONTINENT AND HAS NOT HAD MUCH OUT OVERNIGHT - BUT DID HAVE A LARGE VOID THIS MORNING. Review of Systems General: No Chills; Fatigue HEENT: No Eye Pain, No Ear Pain Pulmonary: No Dyspnea; Cough Cardiovascular: No: Chest Pain Gastrointestinal: No: Nausea, Vomiting, Abdominal Pain Genitourinary: Incontinence Musculoskeletal: No: neck pain, shoulder pain Neurological: Weakness, Confusion All Other Systems Reviewed All Other Systems Reviewed: Yes (Negative excepted noted.) Objective Exam Vital Signs Vital Signs - First Documented 03/24/20 03/24/20 03/25/20 17:30 18:41 04:37 Temp 36.1 Pulse 89 Resp 16 B/P (MAP) 135/86 (102) Pulse Ox 93 O2 Delivery Room Air O2 Flow Rate 2.00 FiO2 28 Capillary Refill : Less Than 3 Seconds General Appearance: No Apparent Distress Eyes: Bilateral Eye Normal Inspection HEENT: PERRL/EOMI, Normal ENT Inspection Neck: Supple Respiratory: Decreased Breath Sounds (POOR EFFORT WITH FAINT CRACKLES RIGHT BASE) Cardiovascular: Systolic Murmur, Irregularly Irregular, Other (mild BLE edema) Gastrointestinal: Normal Bowel Sounds, Non Tender, Soft Rectal: Deferred Extremity: Non Tender, No Calf Tenderness, Pedal Edema Neurologic/Psychiatric: Alert, No Motor/Sensory Deficits, Normal Mood/Affect, Other (residual right-sided weakness from prior stroke) Skin: Normal Color, Warm/Dry Results Lab Laboratory Tests 03/28/20 06:47: White Blood Count 8.6, Red Blood Count 3.85L, Hemoglobin 11.8L, Hematocrit 38L, Mean Corpuscular Volume 98, Mean Corpuscular Hemoglobin 31, Mean Corpuscular Hemoglobin Concent 31L, Red Cell Distribution Width 12.5, Platelet Count 351, Mean Platelet Volume 10.7, Sodium Level 143, Potassium Level 4.1, Chloride Level 106, Carbon Dioxide Level 24, Anion Gap 13, Blood Urea Nitrogen 7, Creatinine 0.63, Estimat Glomerular Filtration Rate > 60, BUN/Creatinine Ratio 11, Glucose Level 98, Calcium Level 8.2L Microbiology 03/24/20 Urine Culture - Final, Complete NO GROWTH 03/24/20 Blood Culture - Preliminary, Resulted No growth 03/24/20 Influenza Types A,B Antigen ([place]) - Final, Complete Assessment/Plan Assessment/Plan Assessment and Plan PNEUMONIA SEPSIS LACTIC ACIDOSIS WAS COVID PUI - NEGATIVE ASPIRATION HYPOXIA HYPOKALEMIA DEHYDRATION HYPERTENSION NEW ONSET ATRIAL FIBRILLATION HX OF SEIZURE HX OF STROKE AFTER FAILED SUICIDE ATTEMPT VASCULAR DEMENTIA PNEUMONIA WITH SEPSIS AND NOW RESOLVED LACTIC ACIDOSIS -WAS COVID PUI - NEGATIVE - PNEUMONIA APPEARS TO BE RIGHT SIDED AND DUE TO KNOWN HX OF RECURRENT ASPIRATION - SPEECH WAS CONSULTED, CONTINUE WITH ASPIRATION PRECAUTIONS WHEN EATING/DRINKING - ZOSYN, FLUCONAZOLE AND AZITHROMYCIN IV - CXR SHOWS POSSIBLE PERSISTENT PLEURAL EFFUSION - DECREASED FLUIDS FROM 75ML TO 50ML ON SUNDAY, SMALL DOSE OF LASIX TODAY DUE TO EDEMA AND PLEURAL EFFUSION - REPEAT IMAGING TOMORROW MORNING - STRICT INTAKE AND OUTPUT, DAILY WEIGHTS - WHITE COUNT NOW NORMALIZED HYPOKALEMIA AND DEHYDRATION - RESOLVED - MONITOR LABS HYPERTENSION AND NEW ONSET ATRIAL FIBRILLATION - PT ON ELIQUIS HX OF SEIZURE AND HX OF STROKE AFTER FAILED SUICIDE ATTEMPT - SUPPORTIVE CARE, CONTINUE HOME REGIMEN. 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 I TALKED TO HIS ABOUT FUTURE PLANS AND THAT SHE NEEDS TO TALK TO DR. MAZARIEGOS ABOUT THE FACT THAT WITH HIS DX OF ASPIRATION PNEUMONIA HE IS AT HIGHER RISK OF PERSISTENT INFECTION OR RECURRENT INFECTIONS AND THEY NEED TO CONSIDER HOSPICE IN THE FUTURE. Clinical Quality Measures DVT/VTE Risk/Contraindication: Risk Factor Score Per Nursin RFS Level Per Nursing on Admit: 4+=Very High KEYA MEDINA MD Mar 28, 2020 08:27
--- NOTE | 2020-03-28 08:34 | Diagnostic Imaging Report ---
INDICATION: Pneumonia COMPARISON STUDY: Chest from 2 days ago. FINDINGS: Portable upright view of the chest demonstrates slight increase of the infiltrates in the right lower lobe. Small effusion is present. Left lung is clear. Heart size and vascularity are normal. Previously the vascularity is slightly increased. IMPRESSION: There has been some increase of the right lower lobe infiltrate and a small right pleural effusion. Mild congestion has resolved. Dictated by: Dictated on workstation # [id number]
[2020-03-28] MEDS: FLUCONAZOLE 200 MG/100 ML 50 ML, EMPTY IV BAG (PVC) 1 EA IV SCH ×2 (08:35)
[2020-03-28] MEDS: RT-ALBUTEROL INHALER HFA (VENTOLIN HFA) 18 GM IH SCH ×3 (09:09→19:40)
[2020-03-28] MEDS: 1/2 NS W/KCL 20 MEQ/L 1,000 ML IV SCH (11:53)
--- NOTE | 2020-03-28 13:27 | Cardiology Progress Note ---
Cardiology SOAP Progress Note Subjective: No cardiac complaints. Objective: I&O/Vital Signs 03/28/20 03/28/20 03/28/20 03/28/20 04:00 07:00 08:00 08:00 Temp 37.1 35.8 Pulse 82 77 82 Resp 18 18 B/P (MAP) 133/73 (93) 137/77 (97) Pulse Ox 92 94 O2 Delivery Nasal Cannula Nasal Cannula O2 Flow Rate 3.00 1.50 03/28/20 03/28/20 09:11 12:21 Pulse 85 Pulse Ox 92 O2 Delivery Nasal Cannula O2 Flow Rate 3.00 03/28/20 00:00 Intake Total 720 ml Balance 720 ml Weight (Pounds): 226 Weight (Ounces): 6.4 Weight (Calculated Kilograms): 105.333511 Constitutional: AAO x 3 Respiratory: chest is bilaterally symmetric, lungs clear to auscultation Cardiovascular: regular rate-rhythm, S1 and S2, systolic murmur Gastrointestional: soft, audible bowel sounds Extremities: normal range of motion, non-tender, normal inspection, no lower extremity edema bilateral Neurologic/Psychiatric: alert, normal mood/affect, oriented x 3 Skin: normal color; No rash, No ulcerations Results/Procedures: Labs Laboratory Tests 03/28/20 06:47: White Blood Count 8.6, Red Blood Count 3.85L, Hemoglobin 11.8L, Hematocrit 38L, Mean Corpuscular Volume 98, Mean Corpuscular Hemoglobin 31, Mean Corpuscular Hemoglobin Concent 31L, Red Cell Distribution Width 12.5, Platelet Count 351, Mean Platelet Volume 10.7, Sodium Level 143, Potassium Level 4.1, Chloride Level 106, Carbon Dioxide Level 24, Anion Gap 13, Blood Urea Nitrogen 7, Creatinine 0.63, Estimat Glomerular Filtration Rate > 60, BUN/Creatinine Ratio 11, Glucose Level 98, Calcium Level 8.2L Microbiology 03/24/20 Urine Culture - Final, Complete NO GROWTH 03/24/20 Blood Culture - Preliminary, Resulted No growth 03/24/20 Influenza Types A,B Antigen ([place]) - Final, Complete A/P: Assessment/Dx: sepsis, pneumonia, Paraplegia, Atrial fibrillation; converted to sinus rhythm. Arvj-qx-wrmqdysp aortic stenosis, Pulmonary hypertension Plan: Plan sepsis, pneumonia, on broad spectrum IV antibiotics. Defer to Dr. Suggs. Paraplegia, Atrial fibrillation: Converted spontaneously to sinus rhythm. On Eliquis 5 mg twice a day. Xwff-zv-vfpfaxyc aortic stenosis, Pulmonary hypertension Thank you for your consultation. Please call me if you have any questions. Arvind Wooten MD, FACP, FACC, FSCAI, FHRS, CCDS Interventional Cardiology Cardiac Electrophysiology Vascular Medicine and Endovascular Interventions Rosalind WOOTEN MD Mar 28, 2020 13:27
[2020-03-28 15:54] VITALS: BP 147/77
[2020-03-28] MEDS: TAMSULOSIN 0.4 MG (FLOMAX) CAP PO SCH (20:00)
[2020-03-28] MEDS: FINASTERIDE (PROSCAR) 5 MG TAB PO SCH (20:00)
[2020-03-28 20:04] VITALS: BP 161/81
[2020-03-28 23:54] VITALS: BP 153/88
[2020-03-29] MEDS: AZITHROMYCIN 500 MG/NS 250 ML IVPB IV SCH ×2 (02:01)
[2020-03-29] MEDS: PIPERACILLIN/TAZOBACTAM (BULK) 4.5 GM in NS (IVPB) 100 ML IV SCH ×3 (03:26→19:53)
[2020-03-29 03:56] VITALS: BP 131/77
[2020-03-29] MEDS: BETHANECHOL 25 MG (URECHOLINE) TAB PO SCH ×4 (05:09→19:55)
[2020-03-29] MEDS: 1/2 NS W/KCL 20 MEQ/L 1,000 ML IV SCH (08:03)
[2020-03-29] MEDS: APIXABAN 5 MG (ELIQUIS) TABLET PO SCH ×2 (08:04→19:55)
[2020-03-29] MEDS: VENlafaxine 75 MG (EFFEXOR) TAB PO SCH ×2 (08:04→19:55)
[2020-03-29] MEDS: FLUCONAZOLE 200 MG/100 ML 50 ML, EMPTY IV BAG (PVC) 1 EA IV SCH ×2 (08:04)
[2020-03-29] MEDS: PANTOPRAZOLE 40 MG (PROTONIX) TAB PO SCH (08:04)
[2020-03-29] MEDS: LEVETIRACETAM 500 MG (KEPPRA) TAB PO SCH ×2 (08:04→19:54)
[2020-03-29 08:11] VITALS: BP 135/82
--- NOTE | 2020-03-29 09:11 | Cardiology Progress Note ---
Objective-Cardiology Exam Last Set of Vital Signs Vital Signs 03/25/20 03/29/20 04:37 08:11 Temp 36.8 Pulse 78 Resp 18 B/P (MAP) 135/82 (99) Pulse Ox 94 O2 Delivery Nasal Cannula O2 Flow Rate 3.00 FiO2 28 Capillary Refill : Less Than 3 Seconds I&O Intake and Output 03/29/20 00:00 Intake Total 730 ml Output Total 360 ml Balance 370 ml Intake Oral 730 ml Output Urine Total 360 ml # Urine Diapers 5 A/P-Cardiology Admission Diagnosis Pneumonia PAF HTP Assessment/Plan Sepsis, pneumonia, on antibiotics, management per Dr. Suggs. Paraplegia Atrial fibrillation, new onset, converted spontaneously to sinus rhythm. On Eliquis 5mg BID. 2D Echo done 03/26/2020 showing EF 55-65%, mild to moderate , PA 50-55mmHg Mild to moderate Pulmonary hypertension- PA 50-55mmHg Clinical Quality Measures DVT/VTE Risk/Contraindication: Risk Factor Score Per Nursin RFS Level Per Nursing on Admit: 4+=Very High SUNNY MANDEL Mar 29, 2020 09:11
[2020-03-29] MEDS: RT-ALBUTEROL INHALER HFA (VENTOLIN HFA) 18 GM IH SCH ×3 (10:14→22:21)
--- NOTE | 2020-03-29 10:19 | Physical Therapy Daily Note ---
PT Daily Note-Current Subjective Patient agrees to exercise. Mental Status Patient Orientation: Confused Transfers SCALE: Activities may be completed with or without assistive devices. 6-Fkcuprphpt-kvaxpjt completes the activity by him/herself with no assistance from a helper. 5-Set-up or Clean-up Assistance-helper sets up or cleans up; patient completes activity. Austin assists only prior to or following the activity. 4-Supervision or Touching Assistance-helper provides verbal cues and/or touching/steadying and/or contact guard assistance as patient completes activity. Assistance may be provided throughout the activity or intermittently. 3-Partial/Moderate Assistance-helper does LESS THAN HALF the effort. Austin lifts, holds or supports trunk or limbs, but provides less than half the effort. 2-Substantial/Maximal Assistance-helper does MORE THAN HALF the effort. Austin lifts or holds trunk or limbs and provides more than half the effort. 7-Uerkufcgk-ebcwiu does ALL the effort. Patient does none of the effort to complete the activity. Or, the assistance of 2 or more helpers is required for the patient to complete the activity. If activity was not attempted, code reason: 7-Patient Refused. 9-Not Applicable-not attempted and the patient did not perform the activity befo re the current illness, exacerbation or injury. 10-Not Attempted due to Environmental Limitations-(lack of equipment, weather re straints, etc.). 88-Not Attempted due to Medical Conditions or Safety Concerns. Weight Bearing Right Lower Extremity: Right Gait Training Does the Patient Walk?: No and Walking Goal NOT indicated Exercises Supine Ex: Ankle pumps, Heel Slides, Straight leg raise, Hip abd/add Supine Reps: 15 (PROM right/AAROM left LE) Assessment Patient is a Landen Lift transfer. Patient tolerated exercises. PT Short Term Goals Short Term Goals Time Frame: Apr 03, 2020 Roll Left & Right: 1 Sit to lyin Lying to sitting on side of be: 1 PT Plan Treatment/Plan Treatment Plan: Continue Plan of Care Treatment Plan: Bed Mobility, Functional Activity Zunilda, Functional Strength, Therapeutic Exercise, Transfers (Landen per nursing staff) Treatment Duration: Apr 03, 2020 Frequency: 5 times per week Estimated Hrs Per Day: .25 hour per day Patient and/or Family Agrees t: Yes Time/GCodes Time In: 846 Time Out: 856 Total Billed Treatment Time: 10 Total Billed Treatment 1 visit EX 10 min BEVERLY DOYLE PT Mar 29, 2020 10:19
[2020-03-29 11:34] VITALS: BP 138/87
[2020-03-29] MEDS ORDERED: FUROSEMIDE 40 MG/4 ML INJ (LASIX) IVP NR (12:45)
--- NOTE | 2020-03-29 12:52 | Cardiology Progress Note ---
Subjective Date Seen by Provider: Mar 29, 2020 Time Seen by Provider: 12:49 Subjective/Events-last exam patient was seen at bedside laying down comfortably, no complaint. Denied any active. Review of Systems General: No Chills, No Night Sweats, No Fatigue, No Malaise, No Appetite, No Other HEENT: No Head Aches, No Visual Changes, No Eye Pain, No Ear Pain, No Dysphasia, No Sinus Congestion, No Post Nasal Drip, No Sore Throat, No Other Pulmonary: No Dyspnea, No Cough, No Pleuritic Chest Pain, No Other Cardiovascular: No: Chest Pain, Palpitations, Orthopnea, Paroxysmal Noc. Dyspnea, Edema, Lt Headedness, Other Objective-Cardiology Exam Last Set of Vital Signs Vital Signs 03/29/20 03/29/20 10:13 11:34 Temp 36.6 Pulse 83 Resp 20 B/P (MAP) 138/87 (104) Pulse Ox 95 O2 Delivery Nasal Cannula O2 Flow Rate 2.00 FiO2 2 Capillary Refill : Less Than 3 Seconds I&O Intake and Output 03/29/20 00:00 Intake Total 730 ml Output Total 360 ml Balance 370 ml Intake Oral 730 ml Output Urine Total 360 ml # Urine Diapers 5 General: Alert, Oriented X3, Cooperative HEENT: Atraumatic, PERRLA Neck: Supple, No JVD, No Thyromegaly Lungs: Clear to Auscultation, Normal Air Movement Heart: Regular Rate, Normal S1, Normal S2, No Murmurs Abdomen: Normal Bowel Sounds, Soft, No Tenderness, No Hepatosplenomegaly, No Ma sses Extremities: No Clubbing, No Cyanosis, No Edema, Normal Pulses, No Tenderness/Swelling Skin: No Rashes, No Breakdown, No Significant Lesion Neuro: Normal Gait, Normal Speech, Strength at 5/5 X4 Ext, Normal Tone, Sensation Intact Psych/Mental Status: Mental Status NL, Mood NL A/P-Cardiology Admission Diagnosis Pneumonia PAF HTP Assessment/Plan Pneumonia, sepsis, managed by primary care physician maintained on antibiotic. Continue to monitor Transient atrial fibrillation, converted spontaneously to sinus rhythm, maintained on oral anticoagulation, last echo was done on March 26, 2020 showing ejection fraction 55-65 percent, mild to moderate aortic stenosis, PA pressure 50-55 mmHg History of CVA with residual paraplegia. Mild to moderate aortic valve stenosis. Continue to monitor Pulmonary hypertension, PA pressure 50-55 mmHg. Continue to monitor Clinical Quality Measures DVT/VTE Risk/Contraindication: Risk Factor Score Per Nursin RFS Level Per Nursing on Admit: 4+=Very High MARIA ESTHER WOOD MD Mar 29, 2020 12:52
--- NOTE | 2020-03-29 12:59 | Progress Note ---
Subjective Date Seen by a Provider: Mar 29, 2020 Time Seen by a Provider: 12:56 Subjective/Events-last exam Fwup pneumonia with sepsis, hypoxia, respiratory distress, COVID exposure, Hx. of seizures, HTN. Sitting up in bed. More alert. Appetite improving. Wants to go home. Objective Exam Vital Signs Date Time Temp Pulse Resp B/P (MAP) Pulse Ox O2 Delivery O2 Flow Rate FiO2 03/29/20 11:34 36.6 83 20 138/87 (104) 95 Nasal Cannula 2.00 03/29/20 10:13 90 Nasal Cannula 2 03/29/20 08:11 36.8 78 18 135/82 (99) 94 Nasal Cannula 3.00 03/29/20 08:00 Nasal Cannula 1.50 03/29/20 06:38 72 03/29/20 03:56 36.5 84 20 131/77 (95) 92 Nasal Cannula 3.00 03/29/20 01:00 80 03/28/20 23:54 36.8 80 20 153/88 (109) 94 Nasal Cannula 3.00 03/28/20 20:04 36.9 79 18 161/81 (107) 94 Nasal Cannula 3.00 03/28/20 19:40 93 Nasal Cannula 3.00 03/28/20 19:28 Nasal Cannula 1.50 03/28/20 19:00 81 03/28/20 15:54 36.8 82 20 147/77 (100) 93 Nasal Cannula 3.00 I & O 03/29/20 07:00 Intake Total 755 ml Output Total 360 ml Balance 395 ml Capillary Refill : Less Than 3 Seconds General Appearance: No Apparent Distress Neck: Supple Respiratory: Lungs Clear, Decreased Breath Sounds Cardiovascular: Regular Rate, Rhythm, Systolic Murmur Gastrointestinal: normal bowel sounds, non tender, soft Extremity: Non Tender, No Calf Tenderness, No Pedal Edema Neurologic/Psychiatric: Alert, Oriented x3 Skin: Warm/Dry Results Lab Microbiology 03/24/20 Urine Culture - Final, Complete NO GROWTH 03/24/20 Blood Culture - Preliminary, Resulted No growth 03/24/20 Influenza Types A,B Antigen ([place]) - Final, Complete Assessment/Plan Assessment/Plan Assess & Plan/Chief Complaint 1. RLL pneumonia with Sepsis--continue zosyn and zithromax, lovenox for DVT prophylaxis 2. COVID Exposure-2nd COVID negative 3. Acute Hypoxia/Respiratory Distress--currently stable on oxygen via NC--will do O2 qualifier tomorrow and hopefully home 4. Hypertension--restart low dose metoprolol 5. History of seizure--back on Keppra 6. Hypokalemia--improved 7. New onset atrial fibrillation--on eliquis, restart low dose metoprolol, Lasix with potassium now Called and discussed conditions/care--hopefully home tomorrow Clinical Quality Measures Admission Status Admission Dx 1. RLL pneumonia with Sepsis--IVF resuscitation, change ceftriaxone to zosyn and continue zithromax, lovenox for DVT prophylaxis 2. COVID Exposure--COVID pending but high PUI 3. Acute Hypoxia/Respiratory Distress--currently stable on oxygen via NC 4. Hypertension--hold home meds as BP is low/normal now 5. History of seizure--resume Kera DVT/VTE Risk/Contraindication: Risk Factor Score Per Nursin RFS Level Per Nursing on Admit: 4+=Very High ALBERTINA MAZARIEGOS DO Mar 29, 2020 12:59
[2020-03-29] MEDS: POTASSIUM CL 10MEQ/50ML IVPB 50 ML IV SCH (13:24)
[2020-03-29] MEDS ORDERED: KCL 20 MEQ TAB (K-DUR) PO ONE (13:30)
[2020-03-29 15:38] VITALS: BP 138/87
[2020-03-29 19:50] VITALS: BP 123/82
[2020-03-29] MEDS: FINASTERIDE (PROSCAR) 5 MG TAB PO SCH (19:55)
[2020-03-29] MEDS: TAMSULOSIN 0.4 MG (FLOMAX) CAP PO SCH (19:55)
[2020-03-30 00:04] VITALS: BP 145/85
[2020-03-30] MEDS: 1/2 NS W/KCL 20 MEQ/L 1,000 ML IV SCH (03:41)
[2020-03-30] MEDS: PIPERACILLIN/TAZOBACTAM (BULK) 4.5 GM in NS (IVPB) 100 ML IV SCH ×2 (03:41→11:29)
[2020-03-30 04:45] VITALS: BP 151/88
[2020-03-30] MEDS: BETHANECHOL 25 MG (URECHOLINE) TAB PO SCH ×2 (05:17→11:30)
[2020-03-30 05:46] LABS: HEMOGLOBIN 12.2 g/dL (13.3-17.7); MEAN PLATELET VOLUME 10.2 fL (9.0-12.2); WHITE BLOOD COUNT 8.4 10^3/uL (4.3-11.0)
[2020-03-30 05:57] LABS: CHLORIDE 101 MMOL/L (98-107); POTASSIUM 3.8 MMOL/L (3.6-5.0); SODIUM 138 MMOL/L (135-145)
[2020-03-30 05:58] LABS: CALCIUM 8.6 MG/DL (8.5-10.1)
[2020-03-30 05:59] LABS: GLUCOSE 98 MG/DL (70-105)
[2020-03-30 06:00] LABS: CARBON DIOXIDE 27 MMOL/L (21-32)
[2020-03-30 06:02] LABS: CREATININE SERUM 0.73 MG/DL (0.60-1.30); GFR ESTIMATED > 60
[2020-03-30 06:03] LABS: BUN/CREATININE RATIO 10
[2020-03-30 08:00] VITALS: BP 146/77
--- NOTE | 2020-03-30 08:14 | Cardiology Progress Note ---
Subjective Date Seen by Provider: Mar 30, 2020 Time Seen by Provider: 08:13 Subjective/Events-last exam Patient is sitting up in bed, no new complaints. Denies any chest pain. Review of Systems General: No Chills, No Night Sweats, No Fatigue, No Malaise, No Appetite, No Other HEENT: No Head Aches, No Visual Changes, No Eye Pain, No Ear Pain, No Dysphasia, No Sinus Congestion, No Post Nasal Drip, No Sore Throat, No Other Pulmonary: No Dyspnea, No Cough, No Pleuritic Chest Pain, No Other Cardiovascular: No: Chest Pain, Palpitations, Orthopnea, Paroxysmal Noc. Dyspnea, Edema, Lt Headedness, Other Objective-Cardiology Exam Last Set of Vital Signs Vital Signs 03/29/20 03/30/20 03/30/20 10:13 04:45 07:24 Temp 36.8 Pulse 75 Resp 18 B/P (MAP) 151/88 (109) Pulse Ox 96 O2 Delivery Nasal Cannula O2 Flow Rate 2.00 FiO2 2 Capillary Refill : Less Than 3 Seconds I&O Intake and Output 03/30/20 00:00 Intake Total 625 ml Balance 625 ml Intake Oral 625 ml # Urine Diapers 6 General: Alert, Oriented X3, Cooperative HEENT: Atraumatic, PERRLA Neck: Supple, No JVD, No Thyromegaly Lungs: Clear to Auscultation, Normal Air Movement Heart: Regular Rate, Normal S1, Normal S2, No Murmurs Abdomen: Normal Bowel Sounds, Soft, No Tenderness, No Hepatosplenomegaly, No Masses Extremities: No Clubbing, No Cyanosis, No Edema, Normal Pulses, No Tenderness/Swelling Skin: No Rashes, No Breakdown, No Significant Lesion Neuro: Normal Gait, Normal Speech, Strength at 5/5 X4 Ext, Normal Tone, Sensation Intact Psych/Mental Status: Mental Status NL, Mood NL Results Lab Laboratory Tests 03/30/20 05:21 A/P-Cardiology Admission Diagnosis Pneumonia PAF HTP Assessment/Plan Pneumonia, sepsis, managed by primary care physician maintained on antibiotic. Continue to monitor Transient atrial fibrillation, converted spontaneously to sinus rhythm, maintained on oral anticoagulation, last echo was done on March 26, 2020 showing ejection fraction 55-65 percent, mild to moderate aortic stenosis, PA pressure 50-55 mmHg History of CVA with residual paraplegia. Mild to moderate aortic valve stenosis. Continue to monitor Pulmonary hypertension, PA pressure 50-55 mmHg. Continue to monitor Patient was seen and evaluated with Mindy, examination performed, management plan was discussed, agree with the current scribed note, I made few changes to the note using Italic font Patient was seen and evaluated with Mindy, has been doing well, reporting improvement in the shortness of breath. No change in medication. Continue to monitor Clinical Quality Measures DVT/VTE Risk/Contraindication: Risk Factor Score Per Nursin RFS Level Per Nursing on Admit: 4+=Very High MINDY MANDEL Mar 30, 2020 08:14 MARIA ESTHER WOOD MD Mar 30, 2020 09:54
[2020-03-30] MEDS: APIXABAN 5 MG (ELIQUIS) TABLET PO SCH (08:44)
[2020-03-30] MEDS: PANTOPRAZOLE 40 MG (PROTONIX) TAB PO SCH (08:44)
[2020-03-30] MEDS: VENlafaxine 75 MG (EFFEXOR) TAB PO SCH (08:44)
[2020-03-30] MEDS: FLUCONAZOLE 200 MG/100 ML 50 ML, EMPTY IV BAG (PVC) 1 EA IV SCH ×2 (08:45)
[2020-03-30] MEDS: LEVETIRACETAM 500 MG (KEPPRA) TAB PO SCH (08:45)
--- NOTE | 2020-03-30 08:50 | Diagnostic Imaging Report ---
INDICATION: Lower respiratory infection Portable chest 4:34 AM There is some consolidation at the right lung base. Left lung is clear. IMPRESSION: Right basilar infiltrate consistent with pneumonia. No change compared to 03/28/2020. Dictated by: Dictated on workstation # [id number]
[2020-03-30] MEDS: RT-ALBUTEROL INHALER HFA (VENTOLIN HFA) 18 GM IH SCH (10:53)
[2020-03-30 12:00] VITALS: BP 140/70
--- NOTE | 2020-03-30 12:20 | NUR ---
Patient was placed on 2L nasal cannula and sat came upto 91%. Patient requires 2L oxygen continuously. Addendum: 03/30/20 at 1221 by EL LOCKE RT Amended: Links added.
[2020-03-30] MEDS ORDERED: AMOX-358 PO (12:47)
[2020-03-30] MEDS ORDERED: APIX5TAB PO (12:47)
[2020-03-30] MEDS ORDERED: ALBU18HF2 IH (12:47)
--- NOTE | 2020-03-30 12:49 | D/C HH Face to Face Order ---
D/C Face to Face Orders Reconcile Patient Problems Problems Reviewed?: Yes Instructions for Patient [facility], Patient Instructions/FollowUp: Fwup with me in 1 week Physician to follow Patient: Ifeanyi Discharge Diet for Home: Soft Diet Patient Data-Allergies,Ht & Wt Patient Allergies: Coded Allergies: No Known Drug Allergies (Unverified , 09/09/10) Height (Feet): 6 Height (Inches): 2.00 Weight (Pounds): 226 Weight (Ounces): 6.4 Home Health Need/Face to Face Date of Face to Face: Mar 30, 2020 Clinical Findings: Generalized weakness and fatigue, Muscle weakness I have seen Pt [id number]: Yes Discharged To: Home Diagnosis/Conditions: Pneumonia with Sepsis New Onset Atrial Fibrillation Hypertension Paraplegia Patient is Homebound due to: CognItive deficits, Muscle weakness, Non-weight bearing Homebound Status Due to the above stated illness, injury or surgical procedure (medical condition or diagnosis) and associated clinical findings, the patient is homebound because of his/her inability to leave home except with aid of a supportive device and/or person AND leaving the home requires a considerable and taxing effort or is medically contraindicated. Pt req the following assistanc: Aid of another person, Wheelchair Home Health Nursing Orders Home Health Services Order: Nursing Services Home Health Infusion Therapy Line Start Date: Mar 24, 2020 Certify Stmt I certify that this patient is under my care and that I, a nurse practitioner or a physician; a personal banking assistant working with me, had a face to face encounter that - meets the physician face to face encounter requirements with this patient as dated. ALBERTINA MAZARIEGOS DO Mar 30, 2020 12:49
--- NOTE | 2020-03-30 14:23 | NUR ---
CM/SS: Visited with pt as per [employer] consult related to his discharge planning related to oxygen and home care services. Plan: Pt will discharge to home with Oxygen from [facility], and [facility] for Home Care Services. Summary: Pt will be able to discharge today. He desires to have [facility] for Oxygen and [facility] for home care services. Pt reports his Joi can also answer questions for him if need be around home care and oxygen needs. Pt reports he has a ride home - his will be able to pick him up when ready.
--- NOTE | 2020-03-30 14:37 | NUR ---
CM/SS: Information faxed to [facility] and phone call referral to [facility] for services. [facility] has indicated that they will see pt post hospital day two, and Dr. Suggs is messaged about the day two start of care.
[2020-03-30 15:30] VITALS: BP 140/70
== END 2020-03-30 15:30 | disposition home health service (06) | DRG 871 ==
LOC: EDUNIT# 17:19 → ER 17:21 → 4TH 23:37
PROVIDERS: ADMIT Family Medicine; ATTEND Family Medicine
DX: A41.9 Sepsis, unspecified organism (principal); J69.0 Pneumonitis due to inhalation of food and vomit; G82.20 Paraplegia, unspecified; J90 Pleural effusion, not elsewhere classified; I69.331 Monoplegia of upper limb following cerebral infarction affecting right dominant side; I48.0 Paroxysmal atrial fibrillation; R06.03 Acute respiratory distress; R09.02 Hypoxemia; Z20.828 Contact with and (suspected) exposure to other viral communicable diseases; R13.10 Dysphagia, unspecified; E86.0 Dehydration; F01.50 Vascular dementia, unspecified severity, without behavioral disturbance, psychotic disturbance, mood disturbance, and anxiety; N40.1 Benign prostatic hyperplasia with lower urinary tract symptoms; N39.498 Other specified urinary incontinence; M17.0 Bilateral primary osteoarthritis of knee; I35.0 Nonrheumatic aortic (valve) stenosis; I27.20 Pulmonary hypertension, unspecified; I10 Essential (primary) hypertension; E87.6 Hypokalemia; H53.2 Diplopia; G40.909 Epilepsy, unspecified, not intractable, without status epilepticus; Z87.891 Personal history of nicotine dependence; Z87.01 Personal history of pneumonia (recurrent)
CPT/HCPCS: 36415; 51702; 71045; 71250; 74176; 80048; 80053; 81000; 83605; 83615; 83735; 85007; 85025; 85027; 85379; 85610; 85730; 86141; 87040; 87088; 87635; 87804; 93005; 93306; 94640; 94760; 94761

== ENCOUNTER → 2020-04-27 | Outpatient (CLI) | payer MEDICARE ==
[~2020-04-27] MED LIST changes: +ALBU18HF2 IH; +AMOX-358 PO; +APIX5TAB PO; +ASPI-1238 PO; +ATOR40TA70 PO; +BETHANECHOL PO; +FINA5TAB6 PO; +FLUC150T2 PO; +IRBE300T17 PO; +LEVE750T5 PO; +METO100T12 PO; +MULT-1076 PO; +MUPI22OI2 TOP; +OMEP40CA27 PO; +TMSL.4C PO; +VNL75T PO
== END ==
LOC: CARD 08:30
PROVIDERS: ATTEND Nurse Practitioner Family
DX: R55 Syncope and collapse (principal)
CPT/HCPCS: 93225; 93226

== ENCOUNTER → 2022-03-28 | Outpatient (CLI) | payer MEDICARE ==
[~2022-03-28] MED LIST changes: -BETH25TA GT; +BETH25TA2 GT; -FLUC150T2 PO; +FLUC150T41 PO; -OMEP40CA27 PO; +OMEP40CA6 PO
== END ==
LOC: CARD 11:52
PROVIDERS: ATTEND Nurse Practitioner Family
DX: I27.21 Secondary pulmonary arterial hypertension (principal)
CPT/HCPCS: 93306